=== PATIENT | female | born 1990 ===

== ENCOUNTER → 2020-01-09 15:17 | Outpatient (BNVA) | payer MEDICAID, SELFPAY | PROVIDERS: Visit Provider Obstetrics & Gynecology | DX: R10.2 Pelvic and perineal pain (principal) | CPT/HCPCS: 99213 ==

== ENCOUNTER 2020-01-16 14:35 | Outpatient (REF) | payer MEDICAID, SELFPAY ==
--- NOTE | 2020-01-16 14:48 | US_ITS ---
EXAMINATION: US PELVIS COMPLETE CLINICAL INFORMATION: Pelvic and perineal pain. Irregular on Depo shots COMPARISON: Ultrasound pelvis 09/16/2019 TECHNIQUE: Transabdominal and transvaginal ultrasound the pelvis is performed. FINDINGS: The uterus is anteverted and measures 7.4 cm in length, 4.2 cm in AP and 5.2 cm in transverse dimension. There is a hypoechoic lesion in the posterior body of uterus measuring 2.1 x 1.9 x 1.8 cm suggestive of fibroid. Previously it measured 1.2 x 1.3 x 1.4 cm. Previously visualized subcentimeter fibroids are not seen at this time. No additional lesions seen. Right ovary measures 2.7 x 1.5 x 1.9 cm and volume 4.0 mL. The right ovary appears unremarkable. Previously right ovary measured 4.3 x 4.2 x 4.7 cm. Left ovary measures 2.2 x 1.8 x 1.8 cm and volume 3.7 mL. The left ovary appears unremarkable. Previously left ovary measured 2.8 x 1.3 x 1.8 cm. There is no free fluid in cul-de-sac. US/US transvaginal IMPRESSION: Solitary uterine fibroid has increased slightly in size as described above. Smaller fibroids are not seen at this time. The ovaries are unremarkable.
--- NOTE | 2020-01-16 14:48 | US_ITS ---
EXAMINATION: US PELVIS COMPLETE CLINICAL INFORMATION: Pelvic and perineal pain. Irregular on Depo shots COMPARISON: Ultrasound pelvis 09/16/2019 TECHNIQUE: Transabdominal and transvaginal ultrasound the pelvis is performed. FINDINGS: The uterus is anteverted and measures 7.4 cm in length, 4.2 cm in AP and 5.2 cm in transverse dimension. There is a hypoechoic lesion in the posterior body of uterus measuring 2.1 x 1.9 x 1.8 cm suggestive of fibroid. Previously it measured 1.2 x 1.3 x 1.4 cm. Previously visualized subcentimeter fibroids are not seen at this time. No additional lesions seen. Right ovary measures 2.7 x 1.5 x 1.9 cm and volume 4.0 mL. The right ovary appears unremarkable. Previously right ovary measured 4.3 x 4.2 x 4.7 cm. Left ovary measures 2.2 x 1.8 x 1.8 cm and volume 3.7 mL. The left ovary appears unremarkable. Previously left ovary measured 2.8 x 1.3 x 1.8 cm. There is no free fluid in cul-de-sac. US/US pelvic complete IMPRESSION: Solitary uterine fibroid has increased slightly in size as described above. Smaller fibroids are not seen at this time. The ovaries are unremarkable.
== END 2020-01-16 14:36 | disposition home or self-care (01) ==
LOC: HO.US 14:35
PROVIDERS: Visit Provider Obstetrics & Gynecology
DX: R10.2 Pelvic and perineal pain (principal)
CPT/HCPCS: 76830; 76856

== ENCOUNTER → 2020-02-02 14:58 | Outpatient (BNVA) | payer MEDICAID, SELFPAY | PROVIDERS: Visit Provider Obstetrics & Gynecology | DX: Z76.89 Persons encountering health services in other specified circumstances (principal) ==

== ENCOUNTER → 2020-03-14 08:57 | Outpatient (BNVA) | payer MEDICAID, SELFPAY | PROVIDERS: Visit Provider Advanced Practice Midwife | DX: Z30.42 Encounter for surveillance of injectable contraceptive (principal) | CPT/HCPCS: 96372; 99212; J1050 ==

== ENCOUNTER 2020-03-29 09:47 | Outpatient (REF) | payer MEDICAID, SELFPAY ==
[2020-03-30 04:36] LABS: Syphilis Screen Nonreactive (Nonreactive)
[2020-03-30 04:42] LABS: ~HepC Num1 0.17 S/CO (0.00-0.79); ~Hepatitis C Antibody Nonreactive (Nonreactive)
[2020-03-30 04:54] LABS: HBsAGNum1 0.14 S/CO (0.00-0.99); HIV AB/AG Nonreactive (Nonreactive); HIV Num 1 0.07 S/CO (0.00-0.99); Hepatitis B Surface Antigen Negative (Negative)
[2020-04-04 16:18] LABS: HSV 1 IgM IFA Negative (Negative); HSV 2 IgM IFA Negative (Negative)
== END 2020-03-29 09:48 | disposition home or self-care (01) ==
LOC: HO.LAB 09:47
PROVIDERS: Visit Provider Advanced Practice Midwife
DX: N90.89 Other specified noninflammatory disorders of vulva and perineum (principal); Z20.2 Contact with and (suspected) exposure to infections with a predominantly sexual mode of transmission
CPT/HCPCS: 36415; 86695; 86696; 86780; 86803; 87340; 87389; 99212

== ENCOUNTER 2020-05-09 09:11 | Outpatient (REF) | payer MEDICAID, SELFPAY ==
--- NOTE | ~2020-05-09 | US_ITS ---
EXAMINATION: US ABDOMEN COMPLETE CLINICAL INFORMATION: Left lower quadrant pain. COMPARISON: Previous CT of the abdomen and pelvis July 2017 and abdominal ultrasound May 2009 TECHNIQUE: Real-time imaging of the abdominal viscera. FINDINGS: PANCREAS: Normal. ABDOMINAL AORTA: The proximal, mid, and distal segments are normal in caliber. INFERIOR VENA CAVA: Visualized portions are normal. LIVER: Normal. The liver is normal in size. The liver contour is normal. Parenchymal echogenicity is normal. No focal hepatic lesion. There is no intrahepatic biliary duct dilatation seen. GALLBLADDER: Normal. The gallbladder is physiologically distended without evidence of stones, sludge, polyps, wall thickening or pericholecystic fluid. COMMON BILE DUCT: Normal in caliber measuring 0.2 cm in diameter. RIGHT KIDNEY: Normal. No hydronephrosis. No renal calculi or focal parenchymal lesions. The kidney measures 9 cm in maximum dimension. LEFT KIDNEY: Normal. No hydronephrosis. No renal calculi or focal parenchymal lesions. The kidney measures 9 cm in maximum dimension. SPLEEN: Normal. The spleen measures 8 cm in maximum dimension. FREE FLUID: None. US/US abdomen complete IMPRESSION: Normal abdominal ultrasound.
== END 2020-05-09 09:12 | disposition home or self-care (01) ==
LOC: HO.US 09:11
PROVIDERS: Visit Provider Nurse Practitioner Primary Care
DX: R10.32 Left lower quadrant pain (principal)
CPT/HCPCS: 76700

== ENCOUNTER → 2020-06-11 09:35 | Outpatient (BNVA) | payer MEDICAID, SELFPAY | PROVIDERS: Visit Provider Obstetrics & Gynecology | DX: Z30.42 Encounter for surveillance of injectable contraceptive (principal) | CPT/HCPCS: 96372; 99211; J1050 ==

== ENCOUNTER 2020-06-28 17:52 | Emergency (ER) | payer MEDICAID, SELFPAY ==
--- NOTE | ~2020-06-28 | XR_ITS ---
EXAMINATION: CHEST 2 VIEWS CLINICAL INFORMATION: chest wall pain with inspiration . COMPARISON: No recent priors available TECHNIQUE: PA and lateral views of the chest obtained. FINDINGS: The lungs are well expanded. No focal infiltrate, effusion, edema, or pneumothorax. Cardiac and mediastinal silhouettes are within normal limits for technique. No acute bony abnormality seen XR/XR chest 2V IMPRESSION: No evidence of acute disease
[2020-06-28 19:13] VITALS: BP 118/64; PULSE 81; RESP 18; TEMP 37.2; O2SAT 99; BMI 22.3
[2020-06-28 20:18] LABS: MANUAL DIFF FLAG NO
[2020-06-28 20:20] LABS: Basophils Percent Auto 0.4 % (0-2); Eosinophils Absolute Auto 0.5 X10*3/uL (0.0-0.4); Eosinophils Percent Auto 5.9 % (0-4); Hematocrit 39.8 % (37-47); Hemoglobin 13.3 g/dl (12.0-16.0); Imm Gran Abs Auto 0.01 X10*3/uL (0.00-0.03); Imm Gran Pct Auto 0.1 % (0.0-0.4); Lymphocytes Absolute Auto 2.1 X10*3/uL (1.2-4.9); Lymphocytes Percent Auto 28.2 % (20-40); Mean Corpuscular HGB Conc 33.4 g/dl (31.0-35.0); Mean Corpuscular Hemoglobin 31.1 pg (27.0-33.0); Mean Platelet Volume 10.5 fL (9.4-12.3); Monocytes Absolute Auto 0.4 X10*3/uL (0.1-1.2); Monocytes Percent Auto 4.9 % (2-11); Neutrophils Absolute Auto 4.6 X10*3/uL (2.0-8.3); Neutrophils Percent Auto 60.5 % (45-73); Platelet Count 243 X10*3/uL (160-400); Red Blood Count 4.28 X10*6/uL (4.20-5.50); Red Cell Distribution Width 12.2 % (11.0-16.0); White Blood Count 7.6 X10*3/uL (4.8-10.8)
[2020-06-28 20:30] LABS: Glucose Urine UA NEG (NEG); Leukocyte Esterase Urine NEG (NEG); Nitrite Urine NEG (NEG); PH 5.5 (5.0-8.0); Specific Gravity - Urine >= 1.030 (1.005-1.025); Urine Blood TRACE (NEG); Urine Ketones NEG (NEG); Urine Protein NEG (NEG-TRACE)
[2020-06-28 20:31] LABS: Appearance Urine CLEAR; Color Urine YELLOW
[2020-06-28 20:32] LABS: UPreg QC Valid YES; Urine Pregnancy NEGATIVE (NEGATIVE)
[2020-06-28 20:35] LABS: Bacteria Urine 1+ /LPF; RBC Urine 0 /HPF (0); Squamous Epithelial Cell Urine 1+ /LPF; WBC Urine 0 /HPF (0-4)
[2020-06-28 20:49] LABS: Troponin-I High Sensitivity < 3.5 ng/L (<3.5-17.0)
--- NOTE | 2020-06-28 21:36 | ED.GENADULT ---
HPI - General Adult General Chief complaint: Dyspnea Stated complaint: headache,arm pain, j&j shot Time Seen by Provider: 06/28/20 21:36 Source: patient Mode of arrival: ambulatory Limitations: no limitations History of Present Illness HPI narrative: Patient received Arpan Arpan Aga on left arm on 06/11 now complaining of left arm pain and left chest pain for last 24 hours also complaining of body aches for last few days Related Data Home Medications Medication Instructions Recorded Confirmed medroxyprogesterone 150 mg/mL 150 mg IM [id number] 01/09/20 intramuscular suspension Previous Rx's Medication Instructions Recorded ibuprofen 600 mg PO Q6H PRN #20 tab 06/28/20 Allergies Allergy/AdvReac Type Severity Reaction Status Date / Time No Known Allergies Allergy Verified 03/29/20 09:56 [No Known Allergies*] Review of Systems Review of Systems: Constitutional : No Weight loss, No Fever, No Chills ENT/Mouth : No sore throat, No Rhinorrhea Eyes: No Eye Pain, No Swelling Cardiovascular : + Chest Pain, no palpitations Respiratory : No Cough, No Sputum, no shortness of breath Gastrointestinal : no Nausea, No Vomiting, No Diarrhea, No abdominal Pain, no black stools Genitourinary : No Dysuria, No Urinary Frequency Musculoskeletal : No joint pain, + Myalgias, No Joint Swelling Skin : No Skin Lesions, No rash Neuro : No Weakness, No Numbness, No Dizziness, No Headache Psych : No Anxiety/Panic, No Depression Heme/Lymph: No Bruising, No Lymphadenopathy Endocrine : No Polyuria, No Polydipsia All other systems reviewed and are negative [facility] Past Medical History Medical History Ovarian cyst Patient denies medical problems Family History Family History Father Thyroid disease Mother Thyroid disease Social History Social History Alcohol intake: never Smoking Status: Never smoker Advance Directives: No Advance Directives Information Provided: No Gender identity: female Physical Exam Vital Signs: Vital Signs: Last Vital Signs Temp 98.9 F 06/28/20 19:13 Pulse 74 06/28/20 21:53 Resp 18 06/28/20 21:53 BP 113/58 L 06/28/20 21:53 Pulse Ox 99 06/28/20 21:53 Body Mass Index 22.3 Appearance: Alert. Oriented X3. No acute distress. Eyes: Pupils equal, round and reactive to light. ENT: Pharynx normal. Neck: Normal inspection. Neck supple. CVS: Normal heart rate and rhythm. Pulses normal. Left 2nd inter costal tenderness+ Respiratory: No respiratory distress. Breath sounds normal. Abdomen: Soft and nontender. Bowel sounds are present, no mass palpable, no CVA tenderness Skin: Skin warm and dry. Normal skin color. Normal skin turgor. Extremities: No lower extremity edema. Neuro: Oriented X 3. No motor deficit. No sensory deficit. Medical Decision Making MDM Narrative Medical decision making narrative: Patient left 2nd intercostal tenderness fertile negative for anything acute likely costochondritis will discharge her home Lab Data Result diagrams: 06/28/20 20:08 06/28/20 20:08 Labs: Lab Results 06/28/20 06/28/20 06/28/20 Range/Units 20:08 20:08 20:23 WBC 7.6 (4.8-10.8) X10*3/uL RBC 4.28 (4.20-5.50) X10*6/uL Hgb 13.3 (12.0-16.0) g/dl Hct 39.8 (37-47) % MCV 93.0 (80-98) fL MCH 31.1 (27.0-33.0) pg MCHC 33.4 (31.0-35.0) g/dl RDW 12.2 (11.0-16.0) % Plt Count 243 (160-400) X10*3/uL MPV 10.5 (9.4-12.3) fL Immature Gran % (Auto) 0.1 (0.0-0.4) % Neut % (Auto) 60.5 (45-73) % Lymph % (Auto) 28.2 (20-40) % Andrew % (Auto) 4.9 (2-11) % Eos % (Auto) 5.9 H (0-4) % Baso % (Auto) 0.4 (0-2) % Lymph # (Auto) 2.1 (1.2-4.9) X10*3/uL Andrew # (Auto) 0.4 (0.1-1.2) X10*3/uL Eos # (Auto) 0.5 H (0.0-0.4) X10*3/uL Baso # (Auto) 0.0 (0.0-0.2) X10*3/uL Abs Immat Gran (auto) 0.01 (0.00-0.03) X10*3/uL Absolute Neuts (auto) 4.6 (2.0-8.3) X10*3/uL Absolute Nucleated RBC 0.000 (0.0-0.012) X10*3/uL Nucleated RBC % (auto) 0.0 (0.0-0.2) /100WBC Troponin I High Sens < 3.5 (<3.5-17.0) ng/L Urine Color YELLOW Urine Appearance CLEAR Urine pH 5.5 (5.0-8.0) Ur Specific Tatamy >= 1.030 H (1.005-1.025) Urine Protein NEG (NEG-TRACE) MG/DL Urine Glucose (UA) NEG (NEG) MG/DL Urine Ketones NEG (NEG) MG/DL Urine Blood TRACE (NEG) Urine Nitrite NEG (NEG) Ur Leukocyte Esterase NEG (NEG) Urine RBC 0 (0) /HPF Urine WBC 0 (0-4) /HPF Ur Squamous Epith Cells 1+ /LPF Urine Bacteria 1+ /LPF Urine Test (NEGATIVE) 06/28/20 Range/Units 20:23 WBC (4.8-10.8) X10*3/uL RBC (4.20-5.50) X10*6/uL Hgb (12.0-16.0) g/dl Hct (37-47) % MCV (80-98) fL MCH (27.0-33.0) pg MCHC (31.0-35.0) g/dl RDW (11.0-16.0) % Plt Count (160-400) X10*3/uL MPV (9.4-12.3) fL Immature Gran % (Auto) (0.0-0.4) % Neut % (Auto) (45-73) % Lymph % (Auto) (20-40) % Andrew % (Auto) (2-11) % Eos % (Auto) (0-4) % Baso % (Auto) (0-2) % Lymph # (Auto) (1.2-4.9) X10*3/uL Andrew # (Auto) (0.1-1.2) X10*3/uL Eos # (Auto) (0.0-0.4) X10*3/uL Baso # (Auto) (0.0-0.2) X10*3/uL Abs Immat Gran (auto) (0.00-0.03) X10*3/uL Absolute Neuts (auto) (2.0-8.3) X10*3/uL Absolute Nucleated RBC (0.0-0.012) X10*3/uL Nucleated RBC % (auto) (0.0-0.2) /100WBC Troponin I High Sens (<3.5-17.0) ng/L Urine Color Urine Appearance Urine pH (5.0-8.0) Ur Specific Tatamy (1.005-1.025) Urine Protein (NEG-TRACE) MG/DL Urine Glucose (UA) (NEG) MG/DL Urine Ketones (NEG) MG/DL Urine Blood (NEG) Urine Nitrite (NEG) Ur Leukocyte Esterase (NEG) Urine RBC (0) /HPF Urine WBC (0-4) /HPF Ur Squamous Epith Cells /LPF Urine Bacteria /LPF Urine Test NEGATIVE (NEGATIVE) ECG Data Attestation: I personally reviewed and interpreted this ECG as follows: Interpretation: Normal sinus rhythm heart rate 67 beats per minute normal axis normal intervals no acute ischemia impression normal EKG Discharge Plan Discharge Clinical Impression: Acute costochondritis Patient Disposition: Home, Self-Care Instructions: Costochondritis (ED) Additional Instructions: Apply ice, take pain medication as prescribed Prescriptions: New ibuprofen 600 mg tablet 600 mg PO Q6H PRN (Reason: pain) Qty: 20 RF: 0 No Action medroxyprogesterone [Depo-Provera] 150 mg/mL suspension 150 mg IM [id number] RF: 0
--- NOTE | 2020-06-28 21:42 | ECG_ITS ---
Test Reason : CP Blood Pressure : / mmHG Vent. Rate : 067 BPM Atrial Rate : 067 BPM P-R Int : 158 ms QRS Dur : 078 ms QT Int : 372 ms P-R-T Axes : 060 070 051 degrees QTc Int : 393 ms Normal sinus rhythm Normal ECG No previous ECGs available Referred By: Brandin León Electronically Signed By:Michael Blanchard
[2020-06-28 21:53] VITALS: BP 113/58; PULSE 74; RESP 18; O2SAT 99
[2020-06-28] MEDS: Ibuprofen 600 MG TABLET PO (21:58)
[2020-06-28 22:03] LABS: Alanine Aminotransferase 9 U/L (0-31); Albumin Level 4.3 g/dL (3.5-5.0); Alkaline Phosphatase 65 U/L (39-117); Anion Gap 11 (12-20); Aspartate Amino Transferase 15 U/L (5-31); Bilirubin Total 0.3 mg/dL (0.0-1.0); Blood Urea Nitrogen 8 mg/dL (9-16); Calcium 8.9 mg/dL (8.4-10.2); Carbon Dioxide 23 mmol/L (22-29); Chloride 109 mmol/L (96-108); Creatinine Clr Calc Pharmacy 72.8; Estimated Glomerular Filt Rate > 60; Glucose Random 65 mg/dL (60-115); Potassium 3.7 mmol/L (3.3-5.1); Sodium 139 mmol/L (135-145); Total Protein 7.2 g/dL (6.5-8.0)
== END 2020-06-28 22:02 | disposition home or self-care (01) ==
PROVIDERS: Emergency Provider Internal Medicine
DX: M94.0 Chondrocostal junction syndrome [Tietze] (principal)
CPT/HCPCS: 36415; 71046; 80053; 81001; 81025; 84484; 85025; 93005; 99283; 99284

== ENCOUNTER → 2020-09-03 10:33 | Outpatient (BNVA) | payer MEDICAID, SELFPAY | PROVIDERS: Visit Provider Advanced Practice Midwife | DX: Z30.42 Encounter for surveillance of injectable contraceptive (principal) | CPT/HCPCS: 96372; 99211 ==

== ENCOUNTER 2020-09-26 11:00 | Outpatient (RCR) | payer MEDICAID, SELFPAY | END 2020-09-29 08:00 | disposition home or self-care (01) | LOC: HO.PT 11:00 | PROVIDERS: PCP Internal Medicine; Visit Provider Family Medicine | DX: R10.2 Pelvic and perineal pain (principal) | CPT/HCPCS: 97110; 97112; 97140; 97161 ==

== ENCOUNTER 2020-10-18 10:24 | Outpatient (REF) | payer MEDICAID, SELFPAY ==
[2020-10-19 09:53] LABS: CT PCR NOT DETECTED (Not Detect.); NG PCR NOT DETECTED (Not Detect.)
[2020-10-19 10:07] LABS: BV Int Neg Control Negative (Negative); BV Int Pos Control Positive (Positive)
[2020-10-21 04:21] LABS: HPV mRNA E6/E7 rflx Not Detected (Not Detected)
== END 2020-10-18 10:25 | disposition home or self-care (01) ==
LOC: HO.LAB 10:24
PROVIDERS: Advanced Practice Midwife; Visit Provider Advanced Practice Midwife
DX: Z01.419 Encounter for gynecological examination (general) (routine) without abnormal findings (principal); R10.2 Pelvic and perineal pain; Z20.2 Contact with and (suspected) exposure to infections with a predominantly sexual mode of transmission
CPT/HCPCS: 87480; 87491; 87510; 87591; 87624; 87660; 88142

== ENCOUNTER → 2020-11-20 10:39 | Outpatient (BNVA) | payer MEDICAID, SELFPAY | PROVIDERS: Visit Provider Advanced Practice Midwife | DX: Z30.42 Encounter for surveillance of injectable contraceptive (principal) | CPT/HCPCS: 96372; 99211 ==

== ENCOUNTER 2021-01-02 14:56 | Emergency (ER) | payer MEDICAID, SELFPAY ==
[2021-01-02 16:00] VITALS: PULSE 70; RESP 18; TEMP 36.9; O2SAT 100; BMI 23.4
[2021-01-02 16:03] LABS: COVID-19 Test Negative (Negative); IDNOW Serial# 9DD0AD1C
--- NOTE | 2021-01-02 17:00 | ED.URI ---
HPI - URI/Sore Throat General Chief Complaint: Upper Respiratory Symptoms Stated Complaint: flu like symptoms Time Seen by Provider: 01/02/21 17:00 Source: patient Mode of arrival: ambulatory History of Present Illness HPI Narrative: 30-year-old female with past medical history of ovarian cyst presenting to the ED complaining of sore throat, nasal congestion, headache, sneezing x a few days. Also reports right-sided ear pain. Denies drainage from ears/hearing loss, difficulty swallowing Presenting with family member with similar symptoms. Denies cough, chest pain, shortness of breath, recent travel, COVID-19 exposure, rash MD elicited complaint: sore throat, rhinorrhea and nasal congestion Related Data Home Medications Medication Instructions Recorded Confirmed medroxyprogesterone 150 mg/mL 150 mg IM [id number] 01/09/20 intramuscular suspension (Depo-Provera) Previous Rx's Medication Instructions Recorded ibuprofen 600 mg tablet 600 mg PO Q6H PRN #20 tab 06/28/20 vitamin with calcium 1 tab PO DAILY #90 tab 10/18/20 no.72-iron 27 mg-folic acid 1 mg tablet ( Vitamins Plus Low Iron) medroxyprogesterone 150 mg/mL 150 mg IM [id number] 90 Days #1 ml 11/20/20 intramuscular suspension (Depo-Provera) Allergies Allergy/AdvReac Type Severity Reaction Status Date / Time No Known Allergies Allergy Verified 01/02/21 16:00 [No Known Allergies*] Review of Systems Review of Systems: Constitutional: No Fever, No Chills ENT/Mouth: No Ear Pain, + Nasal Congestion, No Sinus Pain, No Hoarseness, + sore throat, + Rhinorrhea, No Swallowing Difficulty Cardiovascular: No Chest Pain, No SOB Respiratory: No Cough, No Wheezing Gastrointestinal: No Nausea, No Vomiting, No Diarrhea, No Constipation, No Abdominal pain Genitourinary: No Dysuria, No Hematuria Musculoskeletal: No joint pain, No Myalgias, No Joint Swelling Skin: No Skin Lesions, No rash Yes all other systems are reviewed and are negative [facility] Past Medical History Attestation statement: The following information was validated with the patient. Medical History Ovarian cyst Patient denies medical problems Family History Family History Father Thyroid disease Mother Thyroid disease Social History Social History Alcohol intake: never Advance Directives: No Advance Directives Information Provided: No Patient : No Gender identity: Female Physical Exam Vital Signs: Vital Signs: Last Vital Signs Temp 98.4 F 01/02/21 16:00 Pulse 70 01/02/21 16:00 Resp 18 01/02/21 16:00 Pulse Ox 100 01/02/21 16:00 Body Mass Index 23.4 Const: General: cooperative, healthy appearing, comfortable, no acute distress, well developed, alert and awake Orientation/consciousness: patient oriented x3 Limitations: no limitations HENMT: Other: mild posterior oropharyngeal erythema, no swelling/exudates, uvula midline Head: Yes normal to inspection and Yes atraumatic Ears: hearing grossly normal bilaterally, external ears normal, TM's normal bilaterally, TM normal on the right and TM normal on the left General nose exam: Normal external nose present Face and sinus: Yes normal facial exam Mouth: Normal oral and palatal mucosa present, oropharynx normal and moist mucous membranes Throat: Yes uvula midline and No peritonsillar mass Eyes: General: appearance normal, both eyes and all related structures EOM: EOMs intact bilaterally Neck: Neck: Yes normal visual inspection, Yes no lymphadenopathy and Yes no meningeal signs Resp: Effort & Inspection: normal respiratory effort Auscultation: clear to auscultation bilaterally, no crackles, no rales and no wheezes Cardio: Rate: regular rate Heart sounds: S1 normal heart sound present and S2 normal heart sound present GI: Inspection: Yes normal to inspection Skin: Rashes: no rashes Wounds: no wounds Neuro: General: patient oriented x3 and no meningeal signs Gait exam (Neuro): Normal gait present Extrem: General: Yes normal to inspection Course Course Course Narrative: -COVID19 negative -rapid strep negative MDM - URI/Sore Throat MDM Narrative Medical decision making narrative: 30-year-old female with past medical history of ovarian cyst presenting to the ED complaining of sore throat, nasal congestion, headache, sneezing x a few days. On exam vital signs stable, NAD, nontoxic appearing, mild posterior oropharyngeal erythema, TMs WNL, lungs CTA. Concern for viral syndrome/COVID-19. Exam not consistent with strep pharyngitis, low concern for pneumonia. Pain: COVID-19 testing, rapid strep Medical Records Attestation: I reviewed the patient's medical records. Lab Data Attestation: I reviewed the patient's lab results. Labs: Lab Results 01/02/21 01/02/21 Range/Units 15:31 16:59 COVID-19 (FRANCISCO) Negative (Negative) COVID-19 Clin Com See Note S. pyogenes GrpA LUANN Negative (Negative) Discharge Plan Discharge Clinical Impression: Upper respiratory infection Qualifiers: URI type: unspecified viral URI Qualified Code(s): J06.9 - Acute upper respiratory infection, unspecified Patient Disposition: Home, Self-Care Instructions: Viral Syndrome (ED) Additional Instructions: You tested negative for COVID 19 and rapid strep stay hydrated rest Please follow-up with her doctor. If her symptoms persist or worsen, you fever unresolved with medications, developed chest pain, shortness of for chest pain please return to the ED Follow-up doctors. If her symptoms persist or worsen, you develop shortness breath, fever, or chest pain please return to the ED - Stay away from others - WEAR A MASK if you are sick AND STAY HOME - Cover your mouth and nose with a tissue when you cough or sneeze. Dispose of tissues in a lined trash can and wash your hands immediately with soap and water for at least 20 seconds. If soap and water are not available, clean hands with alcohol-based hand commissioned defence [employer] officer that contains at least 60% alcohol. - Clean your hands often with soap and water for at least 20 seconds - Avoid touching your eyes, nose and mouth with unwashed hands - Do not share dishes, drinking glasses, cups, eating utensils, towels, or bedding with other people in your home. After using these items, wash them thoroughly with soap and water or put in the laborer powerhouse. - Clean high-touch surfaces in your isolation area ( sick room and bathroom) every day; let a caregiver clean and disinfect high-touch surfaces in other areas of the home. Clean the area or item with soap and water or another detergent if it is dirty. Then, use a household disinfectant. - Limit contact with pets and animals: If you must care for a pet, wash your hands before and after interacting with them) Prescriptions: No Action ibuprofen 600 mg tablet 600 mg PO Q6H PRN (Reason: pain) Qty: 20 RF: 0 medroxyprogesterone [Depo-Provera] 150 mg/mL suspension 150 mg IM [id number] RF: 0 Vitamin Plus Low Iron 27 mg iron- 1 mg tablet 1 tab PO DAILY Qty: 90 RF: 1 medroxyprogesterone [Depo-Provera] 150 mg/mL suspension 150 mg IM [id number] 90 Days Qty: 1 RF: 1 Referrals: ED Physician,Generic [Emergency Provider] - 2 days Stand Alone Forms: Work/School Release
[2021-01-02 17:18] LABS: Strep A Nucleic Acid Negative (Negative)
== END 2021-01-02 17:31 | disposition home or self-care (01) ==
PROVIDERS: Emergency Provider Emergency Medicine
DX: J06.9 Acute upper respiratory infection, unspecified (principal); Z20.822 Contact with and (suspected) exposure to COVID-19
CPT/HCPCS: 36415; 87635; 87651; 99282; 99283

== ENCOUNTER 2021-01-21 11:09 | Outpatient (REF) | payer MEDICAID, SELFPAY ==
[2021-01-22 02:51] LABS: CT PCR NOT DETECTED (Not Detect.); NG PCR NOT DETECTED (Not Detect.)
[2021-01-22 12:07] LABS: BV Int Neg Control Negative (Negative); BV Int Pos Control Positive (Positive)
== END 2021-01-21 11:10 | disposition home or self-care (01) ==
LOC: HO.LAB 11:09
PROVIDERS: Visit Provider Advanced Practice Midwife
DX: N89.8 Other specified noninflammatory disorders of vagina (principal); N92.1 Excessive and frequent menstruation with irregular cycle; Z30.42 Encounter for surveillance of injectable contraceptive
CPT/HCPCS: 81025; 87480; 87491; 87510; 87591; 87660; 99212

== ENCOUNTER → 2021-02-11 10:33 | Outpatient (BNVA) | payer MEDICAID, SELFPAY | PROVIDERS: Visit Provider Advanced Practice Midwife | DX: Z30.42 Encounter for surveillance of injectable contraceptive (principal) | CPT/HCPCS: 96372 ==

== ENCOUNTER 2021-03-25 08:32 | Outpatient (REF) | payer MEDICAID, SELFPAY ==
[2021-03-25 11:59] LABS: Binax Internal Control QC Valid; Binax Now Covid-19 Ag Positive (Negative)
== END 2021-03-25 08:33 | disposition home or self-care (01) ==
LOC: HO.LAB 08:32
PROVIDERS: Visit Provider Internal Medicine
DX: Z20.822 Contact with and (suspected) exposure to COVID-19 (principal)
CPT/HCPCS: 36415; C9803

== ENCOUNTER 2021-04-30 10:36 | Outpatient (REF) | payer MEDICAID, SELFPAY ==
--- NOTE | ~2021-04-30 | XR_ITS ---
EXAMINATION: XR CHEST CLINICAL INFORMATION: Chest pain on breathing. History of Covid COMPARISON: 06/28/2020 TECHNIQUE: 2 views of the chest were obtained. FINDINGS: No significant abnormality is noted involving the heart, lungs, mediastinum, bony thorax or soft tissues. XR/XR chest 2V IMPRESSION: Unremarkable examination.
[2021-05-02 14:26] LABS: TS Negative Control Passed; TS Panel A 0; TS Panel B 0; TS Positive Control Passed; TSpotTB Negative (Negative)
== END 2021-04-30 10:37 | disposition home or self-care (01) ==
LOC: HO.XRAY 10:36
PROVIDERS: Absent Provider Registered Nurse Community Health; PCP Registered Nurse Community Health; Visit Provider Nurse Practitioner Family
DX: R07.1 Chest pain on breathing (principal); Z86.16 Personal history of COVID-19
CPT/HCPCS: 36415; 71046; 86481

== ENCOUNTER 2021-05-03 13:40 | Outpatient (REF) | payer MEDICAID, SELFPAY ==
[2021-05-03 16:06] LABS: CT PCR NOT DETECTED (Not Detect.); NG PCR NOT DETECTED (Not Detect.)
== END 2021-05-03 13:41 | disposition home or self-care (01) ==
LOC: HO.LAB 13:40
PROVIDERS: Visit Provider Nurse Practitioner Family
DX: R07.1 Chest pain on breathing (principal); Z86.19 Personal history of other infectious and parasitic diseases; Z11.3 Encounter for screening for infections with a predominantly sexual mode of transmission
CPT/HCPCS: 87491; 87591

== ENCOUNTER → 2021-06-14 11:30 | Outpatient (BNVA) | payer MEDICAID, SELFPAY | PROVIDERS: Visit Provider Advanced Practice Midwife | DX: Z30.42 Encounter for surveillance of injectable contraceptive (principal) | CPT/HCPCS: Q3014 ==

== ENCOUNTER → 2021-06-20 10:32 | Outpatient (BNVA) | payer MEDICAID, SELFPAY | PROVIDERS: Visit Provider Advanced Practice Midwife | DX: Z32.02 Encounter for pregnancy test, result negative (principal) | CPT/HCPCS: 99211 ==

== ENCOUNTER → 2021-07-02 09:34 | Outpatient (BNVA) | payer MEDICAID, SELFPAY | PROVIDERS: PCP Registered Nurse Community Health; Visit Provider Advanced Practice Midwife | DX: Z30.42 Encounter for surveillance of injectable contraceptive (principal) | CPT/HCPCS: 96372; 99211 ==

== ENCOUNTER → 2021-09-24 10:43 | Outpatient (BNVA) | payer MEDICAID, SELFPAY | PROVIDERS: PCP Registered Nurse Community Health; Visit Provider Advanced Practice Midwife | DX: Z30.42 Encounter for surveillance of injectable contraceptive (principal) | CPT/HCPCS: 96372; 99211 ==

== ENCOUNTER 2021-10-09 04:06 | Emergency (ER) | payer MEDICAID, SELFPAY ==
--- NOTE | 2021-10-09 | ECG_ITS ---
Test Reason : CP Blood Pressure : / mmHG Vent. Rate : 081 BPM Atrial Rate : 081 BPM P-R Int : 152 ms QRS Dur : 062 ms QT Int : 344 ms P-R-T Axes : 067 061 040 degrees QTc Int : 399 ms Normal sinus rhythm with sinus arrhythmia Normal ECG When compared with ECG of 28-JUN-2020 21:51, No significant change was found Referred By: Generic ED Physician Electronically Signed By:TARIQ GIORDANO
--- NOTE | ~2021-10-09 | XR_ITS ---
EXAMINATION: XR CHEST CLINICAL INFORMATION: Cough. Chest wall pain. COMPARISON: 04/30/2021 TECHNIQUE: 2 views of the chest were obtained. FINDINGS: Normal symmetric lung volumes. No parenchymal consolidation. No pleural effusion. No pneumothorax. Cardiomediastinal silhouette and pulmonary vascularity are within normal limits. No acute osseous abnormalities. XR/XR chest 2V IMPRESSION: Unremarkable examination.
[2021-10-09 05:03] VITALS: BP 131/78; PULSE 80; TEMP 36.8; O2SAT 96; BMI 23.4
--- NOTE | 2021-10-09 08:27 | ED.GENADULT ---
HPI - General Adult General Chief complaint: General Medical Stated complaint: chest pain, coughing Time Seen by Provider: 10/09/21 08:06 Source: patient Mode of arrival: ambulatory History of Present Illness HPI narrative: 31-year-old female with significant past medical history presenting to the ED complaining of left eye pruritus, headache, and dry cough since last night. Admits eye became erythematous after itching. Also reports CP, worse with coughing and palpation. Reports chronic headaches are this is worse, denies being maximal in onset. Denies fever, SOB, pain, sore throat, recent travel, sick contacts, abdominal pain, nausea/vomiting, vision change/loss Onset (ago): hour(s) Related Data Previous Rx's Medication Instructions Recorded medroxyprogesterone 150 mg/mL 150 mg IM Q12W #1 mL 06/18/21 intramuscular syringe benzonatate 100 mg capsule 100 mg PO TID PRN cough #14 caps 10/09/21 [id number] 1 cap PO Q4-6H PRN headache #14 10/09/21 50 mg-300 mg-40 mg capsule caps (Fioricet) olopatadine 0.1 % eye drops 1 drp ophthalmic (eye) BID 7 days 10/09/21 #5 mL Allergies Allergy/AdvReac Type Severity Reaction Status Date / Time No Known Allergies Allergy Verified 10/09/21 05:03 [No Known Allergies*] Review of Systems Review of Systems: Constitutional: No Fever, No Chills, No Fatigue, No Malaise ENT/Mouth: No Ear Pain, No Nasal Congestion, No Hoarseness, No sore throat, No Rhinorrhea, No Swallowing Difficulty Eyes: No Eye Pain, No Swelling, + Redness, +itching, No Discharge, No Vision Changes Cardiovascular: + Chest Pain, No SOB, No Dyspnea on Exertion, No Edema, No Palpitations Respiratory: + Cough, No Sputum, No Wheezing, No Dyspnea Gastrointestinal: No Nausea, No Vomiting, No Diarrhea, No Constipation, No Abdominal pain Genitourinary: No Dysuria, No Urinary Frequency, No Hematuria, No Flank Pain, No Urinary Flow Changes, No Hesitancy Musculoskeletal: No joint pain, No Myalgias, No Joint Swelling Skin: No Skin Lesions, No rash Neuro: No Weakness, No Numbness, No Paresthesias, No Loss of Consciousness, No Dizziness, + Headache Yes all other systems are reviewed and are negative Constitutional: Constitutional: Reports as per [facility] Past Medical History Attestation statement: The following information was validated with the patient. Medical History Ovarian cyst Patient denies medical problems Family History Family History Father Thyroid disease Mother Thyroid disease Social History Social History Alcohol intake: never Patient Tobacco Use Status: Never used Tobacco Advance Directives: No Advance Directives Information Provided: No Gender identity: Female Physical Exam ED Vital Signs: Vital Signs - 24 hr 10/09/21 05:03 Temperature 98.3 F Pulse Rate 80 Blood Pressure 131/78 Pulse Oximetry 96 Oxygen Delivery Method Room Air BMI result Body Mass Index 23.4 Const General: cooperative, healthy appearing, no acute distress, alert and awake Orientation/consciousness: patient oriented x3 Limitations: no limitations HENMT Head: Yes normal to inspection and Yes atraumatic Ears: hearing grossly normal bilaterally General nose exam: Normal external nose present Face and sinus: Yes normal facial exam Eyes General: appearance normal, both eyes and all related structures Periorbital: periorbital findings normal Eyelids: Yes eyelids normal Conjunctivae: conjunctivae normal Sclerae: sclerae normal Corneas: corneas normal Pupils: Equal, round and reactive pupils present EOM: EOMs intact bilaterally Direct Ophthalmoscopy: normal light reflex and no photophobia Neck Neck: Yes normal visual inspection and Yes no meningeal signs Chest Chest palpation & inspection: no crepitus and tenderness sternum Resp Effort & Inspection: normal respiratory effort and no respiratory distress Auscultation: clear to auscultation bilaterally, no crackles, no rales, no rhonchi and no wheezes Cardio Rate: regular rate Heart sounds: S1 normal heart sound present and S2 normal heart sound present GI Inspection: Yes normal to inspection Palpation (GI): Soft to palpation, nontender, no guarding and not rigid General: Yes no CVA tenderness Back/Spine/Pelvis Back: no CVA tenderness Skin Rashes: no rashes Wounds: no wounds Neuro General: patient oriented x3, gait normal, tone normal, moves all extremities, no meningeal signs and no focal motor deficits Cranial nerves: Yes Equal, round and reactive pupils present Gait exam (Neuro): Normal gait present Extrem General: Yes normal to inspection and Yes no pedal edema Course Course Course Narrative: -1023--no leukocytosis. Labs otherwise unremarkable. Troponin negative. XR chest 2V IMPRESSION: Unremarkable examination. Medical Decision Making MDM Narrative Medical decision making narrative: 31-year-old female with significant past medical history presenting to the ED complaining of left eye pruritus, headache, and dry cough since last night. Admits eye became erythematous after itching. Also reports CP, worse with coughing and palpation. On exam vital signs stable, NAD, nontoxic, lungs CTA, CP reproducible on exam. bilateral eyes WNL, no erythema. Concern for viral illness vs allergies vs costochondritis. Lower concern for pneumonia, ACS, PE. Concern for SAH/meningitis Plan: EKG, labs, CXR, COVID-19 testing, symptomatic treatment, re-evaluate Medical Records Medical records reviewed: Yes I reviewed the patient's medical records. Lab Data Lab results reviewed: Yes I reviewed the patient's lab results. Result diagrams: 10/09/21 09:14 10/09/21 09:14 Labs: Lab Results 10/09/21 10/09/21 10/09/21 Range/Units 09:14 09:14 09:14 WBC 8.2 (4.8-10.8) X10*3/uL RBC 4.39 (4.20-5.50) X10*6/uL Hgb 13.5 (12.0-16.0) g/dl Hct 40.6 (37.0-47.0) % MCV 92.5 (80.0-98.0) fL MCH 30.8 (27.0-33.0) pg MCHC 33.3 (31.0-35.0) g/dl RDW 12.7 (11.0-16.0) % Plt Count 221 (160-400) X10*3/uL MPV 10.2 (9.4-12.3) fL Immature Gran % (Auto) 0.2 (0.0-0.4) % Neut % (Auto) 62.1 (45-73) % Lymph % (Auto) 24.8 (20-40) % [place] % (Auto) 4.4 (2-11) % Eos % (Auto) 8.0 H (0-4) % Baso % (Auto) 0.5 (0-2) % Lymph # (Auto) 2.0 (1.2-4.9) X10*3/uL [place] # (Auto) 0.4 (0.1-1.2) X10*3/uL Eos # (Auto) 0.7 H (0.0-0.4) X10*3/uL Baso # (Auto) 0.0 (0.0-0.2) X10*3/uL Abs Immat Gran (auto) 0.02 (0.00-0.03) X10*3/uL Absolute Neuts (auto) 5.1 (2.0-8.3) x10*3/uL Absolute Nucleated RBC 0.000 (0.0-0.012) X10*3/uL Nucleated RBC % (auto) 0.0 (0.0-0.2) /100WBC Sodium 138 (135-145) mmol/L Potassium 4.5 D (3.3-5.1) mmol/L Chloride 110 H (96-108) mmol/L Carbon Dioxide 22 (22-29) mmol/L Anion Gap 11 L (12-20) BUN 10 (9-16) mg/dL Creatinine 0.83 (0.5-1.4) mg/dL Estim Creat Clear Calc 74.0 Estimated GFR > 60 Random Glucose 86 (60-115) mg/dL Calcium 9.0 (8.4-10.2) mg/dL Troponin I High Sens < 3.5 (<3.5-17.0) ng/L Discharge Plan Discharge Clinical Impression: Acute viral syndrome, Allergic conjunctivitis Patient Disposition: Home, Self-Care Instructions: Viral Syndrome (ED) Additional Instructions: Your COVID test is currently pending at this time, I will call you with positive results only. Your blood work was otherwise reassuring. Her chest x-ray is unremarkable Fioricet is for headache, take as needed. In addition take Motrin. Be aware Fioricet has Tylenol mixed in, do not exceed 4 g in 1 day. Tessalon Perles for cough. Olopatadine drops will help with your itching Follow-up with her doctor. Return to the ED as needed if symptoms persist or worsen Prescriptions: New olopatadine 0.1 % drops 1 drp ophthalmic (eye) BID 7 Days Qty: 5 0RF Rx Instructions: separate doses by at least 6-8 hours benzonatate 100 mg capsule 100 mg PO TID PRN (Reason: cough) Qty: 14 0RF [id number] [Fioricet] 50-300-40 mg capsule 1 cap PO Q4-6H PRN (Reason: headache) Qty: 14 0RF No Action medroxyprogesterone 150 mg/mL syringe 150 mg IM Q12W Qty: 1 1RF Referrals: [place] [Primary Care Provider] -
[2021-10-09] MEDS: Loratadine 10 MG TABLET PO (09:09)
[2021-10-09] MEDS: Butalb/Acetamin/Caff 50/325/40 TABLET 1 TAB PO (09:09)
[2021-10-09 09:18] LABS: MANUAL DIFF FLAG NO
[2021-10-09 09:20] LABS: Basophils Percent Auto 0.5 % (0-2); Eosinophils Absolute Auto 0.7 X10*3/uL (0.0-0.4); Hematocrit 40.6 % (37.0-47.0); Hemoglobin 13.5 g/dl (12.0-16.0); Imm Gran Abs Auto 0.02 X10*3/uL (0.00-0.03); Imm Gran Pct Auto 0.2 % (0.0-0.4); Lymphocytes Percent Auto 24.8 % (20-40); Mean Corpuscular HGB Conc 33.3 g/dl (31.0-35.0); Mean Corpuscular Hemoglobin 30.8 pg (27.0-33.0); Mean Corpuscular Volume 92.5 fL (80.0-98.0); Mean Platelet Volume 10.2 fL (9.4-12.3); Monocytes Absolute Auto 0.4 X10*3/uL (0.1-1.2); Monocytes Percent Auto 4.4 % (2-11); Neutrophils Absolute Auto 5.1 x10*3/uL (2.0-8.3); Neutrophils Percent Auto 62.1 % (45-73); Platelet Count 221 X10*3/uL (160-400); Red Blood Count 4.39 X10*6/uL (4.20-5.50); Red Cell Distribution Width 12.7 % (11.0-16.0); White Blood Count 8.2 X10*3/uL (4.8-10.8)
[2021-10-09 09:43] LABS: Troponin-I High Sensitivity < 3.5 ng/L (<3.5-17.0)
[2021-10-09 09:44] LABS: Anion Gap 11 (12-20); Blood Urea Nitrogen 10 mg/dL (9-16); Carbon Dioxide 22 mmol/L (22-29); Chloride 110 mmol/L (96-108); Estimated Glomerular Filt Rate > 60; Glucose Random 86 mg/dL (60-115); Potassium 4.5 mmol/L (3.3-5.1); Sodium 138 mmol/L (135-145)
[2021-10-09 11:12] LABS: COVID-19 Test Negative (Negative); IDNOW Serial# 16C4AD1C
== END 2021-10-09 11:06 | disposition home or self-care (01) ==
PROVIDERS: Physician Assistant; Emergency Provider Emergency Medicine
DX: B34.9 Viral infection, unspecified (principal); H10.12 Acute atopic conjunctivitis, left eye; Z20.822 Contact with and (suspected) exposure to COVID-19
CPT/HCPCS: 36415; 71046; 80048; 84484; 85025; 87635; 93005; 99283

== ENCOUNTER 2021-10-21 12:31 | Outpatient (REF) | payer MEDICAID, SELFPAY ==
[2021-10-21 15:41] LABS: CT PCR NOT DETECTED (Not Detect.); NG PCR NOT DETECTED (Not Detect.)
[2021-10-22 09:04] LABS: BV Int Neg Control Negative (Negative); BV Int Pos Control Positive (Positive)
== END 2021-10-21 12:32 | disposition home or self-care (01) ==
LOC: HO.LAB 12:31
PROVIDERS: Visit Provider Advanced Practice Midwife
DX: Z01.419 Encounter for gynecological examination (general) (routine) without abnormal findings (principal); Z11.3 Encounter for screening for infections with a predominantly sexual mode of transmission
CPT/HCPCS: 87480; 87491; 87510; 87591; 87660

== ENCOUNTER 2021-12-11 11:11 | Outpatient (REF) | payer MEDICAID, SELFPAY ==
--- NOTE | ~2021-12-11 | US_ITS ---
EXAMINATION: US PELVIS CLINICAL INFORMATION: Pelvic and perineal pain. COMPARISON: None TECHNIQUE: Ultrasound of the pelvis is performed using both transabdominal and transvaginal transducers along with Doppler. Transvaginal imaging is performed due to inadequate visualization transabdominally. FINDINGS: Uterus: The uterus is anteverted and measures 8.1 x 4.2 x 5.2 cm. The double wall endometrial thickness is 4 mm. The uterus is smooth in contour and has somewhat heterogeneous echogenicity. There is an anterior uterine body fibroid measuring 1.7 x 1.6 x 2 cm. This is somewhat heterogeneous. This is similar to prior. Fundal fibroid measures 0.7 cm, decreased in prominence from prior. Adnexa: Both ovaries are visualized. There is normal color flow to the adnexa. There is no ovarian torsion. There is no pelvic ascites or fluid collection. Right ovary measures 2.8 x 1.5 x 1.5 cm. Left ovary measures 2.8 x 2.1 x 2.2 cm. US/US pelvic and transvaginal IMPRESSION: Uterine fibroids are similar to decreased in size from prior. No suspicious mass.
== END 2021-12-11 11:12 | disposition home or self-care (01) ==
LOC: HO.US 11:11
PROVIDERS: Visit Provider Advanced Practice Midwife
DX: R10.2 Pelvic and perineal pain (principal); D21.9 Benign neoplasm of connective and other soft tissue, unspecified
CPT/HCPCS: 76830; 76856

== ENCOUNTER 2022-01-30 08:29 | Outpatient (REF) | payer MEDICAID, SELFPAY ==
[2022-01-30 11:20] LABS: HCG Quantitative < 2 mIU/mL
== END 2022-01-30 08:30 | disposition home or self-care (01) ==
LOC: HO.LAB 08:29
PROVIDERS: PCP Nurse Practitioner; Visit Provider Advanced Practice Midwife
DX: N91.2 Amenorrhea, unspecified (principal); R10.2 Pelvic and perineal pain; Z30.09 Encounter for other general counseling and advice on contraception; Z79.899 Other long term (current) drug therapy
CPT/HCPCS: 36415; 84702; 99212

== ENCOUNTER 2022-04-04 12:14 | Outpatient (REF) | payer MEDICAID, SELFPAY ==
--- NOTE | ~2022-04-04 | US_ITS ---
EXAMINATION: US PELVIC AND TRANSVAGINAL CLINICAL INFORMATION: Amenorrhea. COMPARISON: Pelvic ultrasound 12/11/2021. TECHNIQUE: Ultrasound of the pelvis is performed using both transabdominal and transvaginal transducers along with Doppler. Transvaginal imaging is performed due to inadequate visualization transabdominally. FINDINGS: UTERUS: The uterus is anteverted and anteflexed measuring 8.9 x 3.8 x 5.1 cm for a volume of 90 mL. The double wall endometrial thickness is 0.8 mm. The uterus is smooth in contour and has normal myometrial echogenicity. Two fibroids are again seen, one anterior body fibroid measuring 1.6 x 1.7 x 1.8 cm (previously 1.7 x 1.6 x 2.0 cm) and a smaller fibroid at the fundus measuring 5 x 6 x 6 mm (previously 7 x 6 x 7 mm). Nabothian cysts are present in the cervix. ADNEXA: Both ovaries are visualized. There is normal color flow to the adnexa. There is no ovarian torsion. There is no pelvic ascites or fluid collection. Right ovary measures 3.1 x 1.5 x 2.1 cm for a volume of 5.1 mL. More follicular cysts are present. Left ovary measures 3.4 x 1.9 x 2.8 cm for a volume of 9.5 mL and contains cysts, the largest measuring 1.6 x 1.7 x 1.9 cm. Bilateral pelvic varices are seen. US/US pelvic and transvaginal IMPRESSION: 1. Two small uterine fibroids. 2. Bilateral ovarian cysts. 3. Bilateral pelvic varices.
== END 2022-04-04 12:15 | disposition home or self-care (01) ==
LOC: HO.US 12:14
PROVIDERS: Visit Provider Advanced Practice Midwife
DX: N91.2 Amenorrhea, unspecified (principal); R10.2 Pelvic and perineal pain
CPT/HCPCS: 76830; 76856

== ENCOUNTER → 2022-04-28 10:32 | Outpatient (BNVA) | payer MEDICAID, SELFPAY | PROVIDERS: PCP Pediatrics; Visit Provider Advanced Practice Midwife | DX: Z30.09 Encounter for other general counseling and advice on contraception (principal) | CPT/HCPCS: 99212 ==

== ENCOUNTER 2022-10-09 07:22 | Emergency (ER) | payer MEDICAID, SELFPAY ==
--- NOTE | ~2022-10-09 | US_ITS ---
EXAM: Pelvic Ultrasound CLINICAL INDICATION: Left-sided pelvic pain. Rule out cyst versus torsion COMPARISON: Pelvic ultrasound 04/04/2022 TECHNIQUE: The pelvis was evaluated using transabdominal and transvaginal imaging. The patient was not amenable to endovaginal interrogation. Color Doppler imaging and spectral analysis of the bilateral ovaries was also performed. FINDINGS: The uterus measures 8.6 x 3.8 x 5.3 cm in longitudinal by AP by transverse dimension. The endometrial stripe is not thickened and measures 0.9 cm. Previously visualized uterine fibroids not discretely visualized on today's imaging. The left ovary measures approximately 3.1 x 2.1 x 1.9 cm and is normal. The right ovary measures approximately 3.1 x 2.1 x 2.3 cm and contains a suspected 1.1 cm cyst versus dominant follicle. Spectral analysis reveals normal arterial and venous waveforms in the bilateral ovaries. There are no abnormal adnexal masses. There is a small amount of free fluid in the pelvis, nonspecific but often times physiologic. US/US pelvic ovarian doppler IMPRESSION: 1. Normal thickness endometrial stripe. 2. Normal arterial and venous waveforms of the bilateral ovaries. 3. Small amount of free pelvic fluid, nonspecific but often times physiologic.
--- NOTE | ~2022-10-09 | US_ITS ---
EXAM: Pelvic Ultrasound CLINICAL INDICATION: Left-sided pelvic pain. Rule out cyst versus torsion COMPARISON: Pelvic ultrasound 04/04/2022 TECHNIQUE: The pelvis was evaluated using transabdominal and transvaginal imaging. The patient was not amenable to endovaginal interrogation. Color Doppler imaging and spectral analysis of the bilateral ovaries was also performed. FINDINGS: The uterus measures 8.6 x 3.8 x 5.3 cm in longitudinal by AP by transverse dimension. The endometrial stripe is not thickened and measures 0.9 cm. Previously visualized uterine fibroids not discretely visualized on today's imaging. The left ovary measures approximately 3.1 x 2.1 x 1.9 cm and is normal. The right ovary measures approximately 3.1 x 2.1 x 2.3 cm and contains a suspected 1.1 cm cyst versus dominant follicle. Spectral analysis reveals normal arterial and venous waveforms in the bilateral ovaries. There are no abnormal adnexal masses. There is a small amount of free fluid in the pelvis, nonspecific but often times physiologic. US/US pelvic and transvaginal IMPRESSION: 1. Normal thickness endometrial stripe. 2. Normal arterial and venous waveforms of the bilateral ovaries. 3. Small amount of free pelvic fluid, nonspecific but often times physiologic.
[2022-10-09 07:34] VITALS: BP 141/71; PULSE 68; RESP 18; TEMP 37; O2SAT 100; BMI 25.3
--- NOTE | 2022-10-09 07:45 | ED.ABDPAIN ---
HPI - Abdominal Pain General Chief Complaint: Abdominal Pain Stated Complaint: Pelvic pain Time Seen by Provider: 10/09/22 07:33 Source: patient Mode of arrival: ambulatory Limitations: no limitations History of Present Illness HPI narrative: 32 yo female with history of ovarian cysts here with complaints of left lower pelvic pain since Thursday described as pressure with nausea. No fevers, chills, vomiting, diarrhea, constipation, urinary symptoms, vaginal discharge. Has been taking ibuprofen which helps her pain. NO new sexual partners. Has been sexually active with one male partner. Does not use condoms, no additional contraceptives. Patient is trying to get . Followed by [facility] [facility] G[employer] AND [employer] SYSTEM ENGINEER (Alisson Urrutia). Last visit was in March 2022 (patient having pelvic pain and had an US which showed bilateral ovarian cysts, two small uterine fibroids). Patient reports she has a follow-up in October. She has not tried calling her GUIDANCE AND CONTROL SYSTEM ENGINEER since Thursday. Has had normal PAPs to date reportedly. Related Data Home Medications Medication Instructions Recorded Confirmed amitriptyline 10 mg tablet 10 mg PO BEDTIME 10/21/21 04/28/22 Previous Rx's Medication Instructions Recorded folic acid 1 mg tablet 1 mg PO DAILY #90 tabs 10/21/21 Allergies Allergy/AdvReac Type Severity Reaction Status Date / Time No Known Allergies Allergy Verified 10/09/22 07:36 [No Known Allergies*] Review of Systems Review of Systems Yes all other systems are reviewed and are negative Constitutional: Reports no additional constitutional complaints, Denies body ache(s), Denies chills, Denies fever(s), Denies headache(s) and Denies weakness Eyes: Reports no additional eye complaints and Denies change in vision Reports system reviewed and no additional complaints, except as documented, Denies dizziness, Denies headache(s), Denies nasal congestion, Denies nasal discharge and Denies neck pain Cardiovascular: Reports no additional cardiovascular complaints, Denies chest pain, Denies leg edema and Denies dyspnea Respiratory: Reports no additional respiratory complaints, Denies cough and Denies dyspnea Gastrointestinal: Reports no additional gastrointestinal complaints, Denies abdominal pain, Denies diarrhea, Reports nausea and Denies vomiting Genitourinary: Reports no additional female genitourinary complaints, Denies hematuria, Denies dyspareunia, Denies dysuria, Reports pelvic pain, Denies flank pain, Denies urinary incontinence, Denies urinary hesitancy, Denies urinary urgency and Denies vaginal discharge Musculoskeletal: Reports no additional musculoskeletal complaints, Denies back pain, Denies arthralgias, Denies joint swelling, Denies neck pain, Denies numbness and Denies tingling Skin/Breast: Reports system reviewed and no additional complaints, except as docu and Denies rash Reports system reviewed and no additional complaints, except as documented, Denies dizziness, Denies headache(s), Denies numbness, Denies tingling and Denies weakness PMFSH Past Medical History Attestation statement: The following information was validated with the patient. Source: old records reviewed and nursing notes reviewed Medical History Ovarian cyst Patient denies medical problems Severe headache Family History Family History Father Thyroid disease Mother Thyroid disease Social History Social History Alcohol intake: never Patient Tobacco Use Status: Never used Tobacco Advance Directives: No Advance Directives Information Provided: Yes Gender identity: Female Physical Exam ED Vital Signs: Vital Signs - 24 hr 10/09/22 07:34 10/09/22 10:25 Temperature 98.6 F Pulse Rate 68 67 Respiratory Rate 18 18 Blood Pressure 141/71 H 125/74 Pulse Oximetry 100 98 Oxygen Delivery Method Room Air Room Air BMI result Body Mass Index 25.3 Const General: cooperative, healthy appearing, comfortable and no acute distress Orientation/consciousness: patient oriented x3 Limitations: no limitations HENTX Head: Yes normal to inspection Ears: hearing grossly normal bilaterally Eyes General: appearance normal, both eyes and all related structures Pupils: Equal, round and reactive pupils present Neck Neck: Yes normal visual inspection Chest Chest palpation & inspection: normal inspection of the chest Resp Effort & Inspection: normal respiratory effort Auscultation: clear to auscultation bilaterally Cardio Rate: regular rate Rhythm: regular rhythm Peripheral pulses: Peripheral pulses 2+ throughout GI Inspection: Yes normal to inspection Palpation (GI): Soft to palpation, Tenderness to palpation present (GI) (Mild TTP LLQ ) obturator sign negative, psoas sign negative and with no rebound tenderness and no guarding Auscultation: normal bowel sounds 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 General: Yes no CVA tenderness Speculum Exam - Vagina: normal appearance of the vagina Speculum Exam - Cervix: normal appearance of the cervix and nontender Bimanual exam- vagina & uterus: normal bimanual exam, No Cervical tenderness present and no cervical motion tenderness Bimanual Exam- Adnexa, other: normal adnexae and no tenderness Back/Spine/Pelvis Back: no CVA tenderness Thoracic/Lumbar Spine: thoracic and lumbar spine normal to inspection Skin General skin exam: no rashes or lesions noted Neuro General: patient oriented x3 and moves all extremities Cranial nerves: Yes Equal, round and reactive pupils present Course Course Course Narrative: Labs unremarkable. UA is negative for infection. Urine is negative. Vaginal swabs were sent and are pending. Pelvic ultrasound shows a small amount of pelvic free fluid otherwise unremarkable. Patient feels improved after receiving ibuprofen. No adnexal tenderness or cervical motion tenderness on exam to suggest PID. Patient has follow-up with gynecology outpatient few weeks. Recommend she continue Motrin, warm compresses and return for any worsening symptoms. Reviewed worrisome signs and symptoms of when to return to the emergency room. Comfortable plan for discharge home. Medical Decision Making Medical Decision Making [facility] Narrative: 32 yo female with history of ovarian cysts, uterine fibroids here with complaints of left sided pelvic pain since Thursday described as pressure with no nausea. +TTP to left lower abdomen with no rebound or guarding. VSS Will need labs, UA, pelvic exam (will send testing for CT NG, BV), pelvic US Differential Diagnosis Differential Diagnoses: The differential diagnosis associated with the presentation includes ovarian cyst, ovarian torsion, ectopic , PID, TOA low concern for diverticulitis, appendicitis, renal colic, pyelonephritis, pancreatitis . Lab Data [facility] Lab Attestation statement: I reviewed the patient's lab results. 10/09/22 07:58 10/09/22 07:58 Labs: Lab Results 10/09/22 10/09/22 10/09/22 Range/Units 07:58 07:58 07:58 WBC 7.0 (4.8-10.8) X10*3/uL RBC 4.17 L (4.20-5.50) X10*6/uL Hgb 12.9 (12.0-16.0) g/dl Hct 38.5 (37.0-47.0) % MCV 92.3 (80.0-98.0) fL MCH 30.9 (27.0-33.0) pg MCHC 33.5 (31.0-35.0) g/dl RDW 12.2 (11.0-16.0) % Plt Count 228 (160-400) X10*3/uL MPV 10.5 (9.4-12.3) fL Immature Gran % (Auto) 0.1 (0.0-0.4) % Neut % (Auto) 60.6 (45-73) % Lymph % (Auto) 28.6 (20-40) % [place] % (Auto) 6.4 (2-11) % Eos % (Auto) 3.7 (0-4) % Baso % (Auto) 0.6 (0-2) % Lymph # (Auto) 2.0 (1.2-4.9) X10*3/uL [place] # (Auto) 0.5 (0.1-1.2) X10*3/uL Eos # (Auto) 0.3 (0.0-0.4) X10*3/uL Baso # (Auto) 0.0 (0.0-0.2) X10*3/uL Abs Immat Gran (auto) 0.01 (0.00-0.03) X10*3/uL Absolute Neuts (auto) 4.3 (2.0-8.3) x10*3/uL Absolute Nucleated RBC 0.000 (0.0-0.012) X10*3/uL Nucleated RBC % (auto) 0.0 (0.0-0.2) /100WBC Sodium 138 (135-145) mmol/L Potassium 3.9 (3.3-5.1) mmol/L Chloride 106 (96-108) mmol/L Carbon Dioxide 24 (22-29) mmol/L Anion Gap 12 (12-20) BUN 8 L (9-16) mg/dL Creatinine 0.86 (0.5-1.4) mg/dL Estim Creat Clear Calc 78.5 Estimated GFR > 60 Random Glucose 77 (60-115) mg/dL Calcium 9.5 (8.4-10.2) mg/dL Total Bilirubin 0.3 (0.0-1.0) mg/dL Direct Bilirubin 0.1 (0.0-0.5) mg/dL AST 16 (5-31) U/L ALT 11 (0-31) U/L Alkaline Phosphatase 70 (39-117) U/L Total Protein 7.3 (6.5-8.0) g/dL Albumin 4.3 (3.5-5.0) g/dL Urine Color Yellow Urine Appearance Clear Urine pH 5.5 (5.0-9.0) Ur Specific [place] 1.025 (1.005-1.025) Urine Protein Negative (Neg-Trace) mg/dL Urine Glucose (UA) Negative (Negative) mg/dL Urine Ketones Negative (Negative) mg/dL Urine Blood Negative (Negative) Urine Nitrite Negative (Negative) Ur Leukocyte Esterase Negative (Negative) Urine Test (NEGATIVE) 10/09/22 Range/Units 07:58 WBC (4.8-10.8) X10*3/uL RBC (4.20-5.50) X10*6/uL Hgb (12.0-16.0) g/dl Hct (37.0-47.0) % MCV (80.0-98.0) fL MCH (27.0-33.0) pg MCHC (31.0-35.0) g/dl RDW (11.0-16.0) % Plt Count (160-400) X10*3/uL MPV (9.4-12.3) fL Immature Gran % (Auto) (0.0-0.4) % Neut % (Auto) (45-73) % Lymph % (Auto) (20-40) % [place] % (Auto) (2-11) % Eos % (Auto) (0-4) % Baso % (Auto) (0-2) % Lymph # (Auto) (1.2-4.9) X10*3/uL [place] # (Auto) (0.1-1.2) X10*3/uL Eos # (Auto) (0.0-0.4) X10*3/uL Baso # (Auto) (0.0-0.2) X10*3/uL Abs Immat Gran (auto) (0.00-0.03) X10*3/uL Absolute Neuts (auto) (2.0-8.3) x10*3/uL Absolute Nucleated RBC (0.0-0.012) X10*3/uL Nucleated RBC % (auto) (0.0-0.2) /100WBC Sodium (135-145) mmol/L Potassium (3.3-5.1) mmol/L Chloride (96-108) mmol/L Carbon Dioxide (22-29) mmol/L Anion Gap (12-20) BUN (9-16) mg/dL Creatinine (0.5-1.4) mg/dL Estim Creat Clear Calc Estimated GFR Random Glucose (60-115) mg/dL Calcium (8.4-10.2) mg/dL Total Bilirubin (0.0-1.0) mg/dL Direct Bilirubin (0.0-0.5) mg/dL AST (5-31) U/L ALT (0-31) U/L Alkaline Phosphatase (39-117) U/L Total Protein (6.5-8.0) g/dL Albumin (3.5-5.0) g/dL Urine Color Urine Appearance Urine pH (5.0-9.0) Ur Specific [place] (1.005-1.025) Urine Protein (Neg-Trace) mg/dL Urine Glucose (UA) (Negative) mg/dL Urine Ketones (Negative) mg/dL Urine Blood (Negative) Urine Nitrite (Negative) Ur Leukocyte Esterase (Negative) Urine Test NEGATIVE (NEGATIVE) Independent Interpretation I performed an independent interpretation of an: Ultrasound Interpretation: I independetely reviewed the US and agree with the radiologist report Radiology Impression Discussion of test interpretation with radiology: I have reviewed the radiologist's reading. Radiologist Impression: FINDINGS: The uterus measures 8.6 x 3.8 x 5.3 cm in longitudinal by AP by transverse dimension. The endometrial stripe is not thickened and measures 0.9 cm. Previously visualized uterine fibroids not discretely visualized on today's imaging. The left ovary measures approximately 3.1 x 2.1 x 1.9 cm and is normal. The right ovary measures approximately 3.1 x 2.1 x 2.3 cm and contains a suspected 1.1 cm cyst versus dominant follicle. Spectral analysis reveals normal arterial and venous waveforms in the bilateral ovaries. There are no abnormal adnexal masses. There is a small amount of free fluid in the pelvis, nonspecific but often times physiologic. US/US pelvic and transvaginal IMPRESSION: 1.? Normal thickness endometrial stripe. 2.? Normal arterial and venous waveforms of the bilateral ovaries. 3.? Small amount of free pelvic fluid, nonspecific but often times physiologic. External Record Review External record reviewed: Prior outpatient radiology Reviewed US from 03/2022 Medications Administered Discontinued Medications Generic Name Dose Route Start Last Admin Trade Name Hien PRN Reason Stop Dose Admin Ibuprofen 600 mg 10/09/22 07:47 10/09/22 08:42 Ibuprofen 600 Mg Tablet PO 10/09/22 07:48 600 mg ONCE ONE Administration Discharge Plan Discharge Clinical Impression: Pelvic pain Patient Disposition: Home, Self-Care Instructions: Pelvic Pain in Women (ED), Pelvic Pain (ED) Additional Instructions: We sent testing for common vaginal infections in women. We will call you if these are positive in you need additional treatment. 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
[2022-10-09 08:03] LABS: MANUAL DIFF FLAG NO
[2022-10-09 08:08] LABS: Basophils Percent Auto 0.6 % (0-2); Eosinophils Absolute Auto 0.3 X10*3/uL (0.0-0.4); Eosinophils Percent Auto 3.7 % (0-4); Hematocrit 38.5 % (37.0-47.0); Hemoglobin 12.9 g/dl (12.0-16.0); Imm Gran Abs Auto 0.01 X10*3/uL (0.00-0.03); Imm Gran Pct Auto 0.1 % (0.0-0.4); Lymphocytes Percent Auto 28.6 % (20-40); Mean Corpuscular HGB Conc 33.5 g/dl (31.0-35.0); Mean Corpuscular Hemoglobin 30.9 pg (27.0-33.0); Mean Corpuscular Volume 92.3 fL (80.0-98.0); Mean Platelet Volume 10.5 fL (9.4-12.3); Monocytes Absolute Auto 0.5 X10*3/uL (0.1-1.2); Monocytes Percent Auto 6.4 % (2-11); Neutrophils Absolute Auto 4.3 x10*3/uL (2.0-8.3); Neutrophils Percent Auto 60.6 % (45-73); Platelet Count 228 X10*3/uL (160-400); Red Blood Count 4.17 X10*6/uL (4.20-5.50); Red Cell Distribution Width 12.2 % (11.0-16.0)
[2022-10-09 08:10] LABS: Appearance Urine Clear; Color Urine Yellow; Glucose Urine UA Negative (Negative); Leukocyte Esterase Urine Negative (Negative); Nitrite Urine Negative (Negative); PH 5.5 (5.0-9.0); Specific Gravity - Urine 1.025 (1.005-1.025); Urine Blood Negative (Negative); Urine Ketones Negative (Negative); Urine Protein Negative (Neg-Trace)
[2022-10-09 08:14] LABS: UPreg QC Valid YES; Urine Pregnancy NEGATIVE (NEGATIVE)
[2022-10-09 08:22] LABS: Alanine Aminotransferase 11 U/L (0-31); Albumin Level 4.3 g/dL (3.5-5.0); Alkaline Phosphatase 70 U/L (39-117); Anion Gap 12 (12-20); Aspartate Amino Transferase 16 U/L (5-31); Bilirubin Direct 0.1 mg/dL (0.0-0.5); Bilirubin Total 0.3 mg/dL (0.0-1.0); Blood Urea Nitrogen 8 mg/dL (9-16); Calcium 9.5 mg/dL (8.4-10.2); Carbon Dioxide 24 mmol/L (22-29); Chloride 106 mmol/L (96-108); Creatinine Clr Calc Pharmacy 78.5; Estimated Glomerular Filt Rate > 60; Glucose Random 77 mg/dL (60-115); Potassium 3.9 mmol/L (3.3-5.1); Sodium 138 mmol/L (135-145); Total Protein 7.3 g/dL (6.5-8.0)
[2022-10-09] MEDS: Ibuprofen 600 MG TABLET PO (08:42)
[2022-10-09 10:25] VITALS: BP 125/74; PULSE 67; RESP 18; O2SAT 98
[2022-10-09 11:26] LABS: CT PCR NOT DETECTED (Not Detect.); NG PCR NOT DETECTED (Not Detect.)
[2022-10-09 14:55] LABS: BV Int Neg Control Negative (Negative); BV Int Pos Control Positive (Positive)
== END 2022-10-09 11:28 | disposition home or self-care (01) ==
PROVIDERS: Nurse Practitioner Family; Emergency Provider Emergency Medicine Emergency Medical Services; PCP Registered Nurse
DX: R10.2 Pelvic and perineal pain (principal); Z79.899 Other long term (current) drug therapy; Z20.2 Contact with and (suspected) exposure to infections with a predominantly sexual mode of transmission
CPT/HCPCS: 0353U; 36415; 76830; 76856; 80048; 80076; 81003; 81025; 85025; 87480; 87510; 87660; 93975; 99284; J2250; J3010

== ENCOUNTER 2023-01-28 09:57 | Outpatient (AMB) | payer MEDICAID, SELFPAY ==
[2023-01-28 10:00] VITALS: BP 120/76; BMI 25.5
--- NOTE | 2023-01-28 10:00 | MHC.OFFVIS ---
Intake Vital Signs 01/28/23 10:00 Height 5 ft 1 in Weight 135 lb BMI 25.5 BP 120/76 Intake Visit Reasons: Annual Intake Note: still having pelvic pain and pain sometimes gives her nausea and is having breast pain. Water/Wastewater Engineer Required: No Information Interpreted: non-clinical & clinical Carbon Dioxide Operator: Carbon Dioxide Operator Present ([place]) Allergies No Known Allergies [No Known Allergies*] Allergy (Verified 01/28/23 10:04) Medication List - Last Reconciled 01/28/23 by Adriana Wang CNM cyclobenzaprine 10 mg PO TID ibuprofen 600 mg PO Q6H PRN meloxicam 7.5 mg PO DAILY Is last menstrual period known: Yes Last menstrual period: 01/08/23 Post menopausal: No HPI Annual HPI Details Patient is here for carburizer annual exam she still is aware of some pelvic pain sometimes and it is usually more the week before she gets he period.. She says it is not as bad as as it was in the past. She has had ultrasounds done over the last couple of years that showed pelvic varices as well as small fibroids and some ovarian cysts. Her periods have been regular since she stop the Depo-Provera she is open to but she is not actively actively trying she did think she ovulated last week and did have sex last week she is also where for breast being more tender the week before her period. [facility] Medical History Severe headache Ovarian cyst Patient denies medical problems Family History Father Thyroid disease Mother Thyroid disease Social History Alcohol intake: never Patient Tobacco Use Status: Never used Tobacco Gender identity: Female Female Reproductive History Menstrual Age of Menarche: 11 Duration of menses: 3-5 days Date of last menstrual period: 01/08/23 control method: none Total pregnancies: 3 Full term: 2 Number of Living Children: 2 Ab spontaneous: 1 Date of last pap smear: 10/19/20 (negative) Physical Exam Vital Signs: Last Vital Signs BP 120/76 01/28/23 10:00 BMI result Body Mass Index 25.5 Const General: healthy appearing, comfortable, no acute distress, well developed and alert Nutritional Appearance: average body habitus Orientation/consciousness: patient oriented x3 Limitations: no limitations HEENT Head: Yes normocephalic Neck Neck: Yes normal visual inspection Chest Chest palpation & inspection: normal inspection of the chest Breast/axilla inspection: normal inspection of the breasts and normal inspection of the axillae Breast/axilla palpation: normal palpation of the breasts and normal palpation of the axillae Resp Effort & Inspection: normal respiratory effort GI Inspection: Yes normal to inspection, No Abdominal wall edema and No distended Palpation (GI): Soft to palpation and nontender General: Yes bladder normal to palpation External Female Exam: normal external appearance and normal appearance of the urethra Speculum Exam - Vagina: normal appearance of the vagina, normal palpation and normal vaginal discharge Speculum Exam - Cervix: normal appearance of the cervix, normal palpation and nontender Bimanual exam- vagina & uterus: normal bimanual exam, normal palpation, uterine size normal, bladder normal to palpation, consistency normal, normal palpation, uterine mobility normal, uterine shape normal, No Cervical tenderness present, non-tender and no cervical motion tenderness Bimanual Exam- Adnexa, other: normal adnexae, no masses, normal and No adnexal tenderness Neuro General: patient oriented x3 Results Reviewed Results Reviewed: [place] [address] Ultrasound Report Signed Patient: Quyen Schmitt MR#: [id number] : 1990 Acct:[id number] Age/Sex: 31 / F ADM Date: 12/11/21 Loc: HO.US Attending Dr: Adriana Wang CNM Ordering Physician: Adriana Wang CNM Date of Service: 12/11/21 Procedure(s): US pelvic and transvaginal Accession Number(s): [id number] cc: Adriana Wang CNM~ EXAMINATION: US PELVIS CLINICAL INFORMATION: Pelvic and perineal pain. COMPARISON: None TECHNIQUE: Ultrasound of the pelvis is performed using both transabdominal and transvaginal transducers along with Doppler. Transvaginal imaging is performed due to inadequate visualization transabdominally. FINDINGS: Uterus: The uterus is anteverted and measures 8.1 x 4.2 x 5.2 cm. The double wall endometrial thickness is 4 mm. The uterus is smooth in contour and has somewhat heterogeneous echogenicity. There is an anterior uterine body fibroid measuring 1.7 x 1.6 x 2 cm. This is somewhat heterogeneous. This is similar to prior. Fundal fibroid measures 0.7 cm, decreased in prominence from prior. Adnexa: Both ovaries are visualized. There is normal color flow to the adnexa. There is no ovarian torsion. There is no pelvic ascites or fluid collection. Right ovary measures 2.8 x 1.5 x 1.5 cm. Left ovary measures 2.8 x 2.1 x 2.2 cm. US/US pelvic and transvaginal IMPRESSION: Uterine fibroids are similar to decreased in size from prior. No suspicious mass. Dictated By: Alex Finch MD Signed By: <Electronically signed by Alex Finch MD in OV> 12/12/21 1459 DD/ 1159 TD/TT: Stock Preparation Operator: JACOB Patient: Quyen Schmitt MR#: [id number] : 1990 Acct:[id number] Age/Sex: 31 / F ADM Date: 04/04/22 Loc: .US Attending Dr: Adriana Wang CNM Ordering Physician: Adriana Wang CNM Date of Service: 04/04/22 Procedure(s): US pelvic and transvaginal Accession Number(s): [id number] cc: Adriana Wang CNM~ EXAMINATION: US PELVIC AND TRANSVAGINAL CLINICAL INFORMATION: Amenorrhea. COMPARISON: Pelvic ultrasound 12/11/2021. TECHNIQUE: Ultrasound of the pelvis is performed using both transabdominal and transvaginal transducers along with Doppler. Transvaginal imaging is performed due to inadequate visualization transabdominally. FINDINGS: UTERUS: The uterus is anteverted and anteflexed measuring 8.9 x 3.8 x 5.1 cm for a volume of 90 mL. The double wall endometrial thickness is 0.8 mm. The uterus is smooth in contour and has normal myometrial echogenicity. Two fibroids are again seen, one anterior body fibroid measuring 1.6 x 1.7 x 1.8 cm (previously 1.7 x 1.6 x 2.0 cm) and a smaller fibroid at the fundus measuring 5 x 6 x 6 mm (previously 7 x 6 x 7 mm). Nabothian cysts are present in the cervix. ADNEXA: Both ovaries are visualized. There is normal color flow to the adnexa. There is no ovarian torsion. There is no pelvic ascites or fluid collection. Right ovary measures 3.1 x 1.5 x 2.1 cm for a volume of 5.1 mL. More follicular cysts are present. Left ovary measures 3.4 x 1.9 x 2.8 cm for a volume of 9.5 mL and contains cysts, the largest measuring 1.6 x 1.7 x 1.9 cm. Bilateral pelvic varices are seen. US/US pelvic and transvaginal IMPRESSION: 1. Two small uterine fibroids. 2. Bilateral ovarian cysts. 3. Bilateral pelvic varices. Dictated By: Chris Delaney MD Signed By: <Electronically signed by Chris Delaney MD in OV> 04/05/22 0955 DD/ 1305 TD/TT: Stock Preparation Operator: KATERINE Patient: Quyen Schmitt MR#: [id number] : 1990 Acct:[id number] Age/Sex: 32 / F ADM Date: 10/09/22 Loc: .ED Attending Dr: Ordering Physician: Lynette Riojas NP Date of Service: 10/09/22 Procedure(s): US pelvic and transvaginal Accession Number(s): [id number] cc: Lynette Riojas NP~ EXAM: Pelvic Ultrasound CLINICAL INDICATION: Left-sided pelvic pain. Rule out cyst versus torsion COMPARISON: Pelvic ultrasound 04/04/2022 TECHNIQUE: The pelvis was evaluated using transabdominal and transvaginal imaging. The patient was not amenable to endovaginal interrogation. Color Doppler imaging and spectral analysis of the bilateral ovaries was also performed. FINDINGS: The uterus measures 8.6 x 3.8 x 5.3 cm in longitudinal by AP by transverse dimension. The endometrial stripe is not thickened and measures 0.9 cm. Previously visualized uterine fibroids not discretely visualized on today's imaging. The left ovary measures approximately 3.1 x 2.1 x 1.9 cm and is normal. The right ovary measures approximately 3.1 x 2.1 x 2.3 cm and contains a suspected 1.1 cm cyst versus dominant follicle. Spectral analysis reveals normal arterial and venous waveforms in the bilateral ovaries. There are no abnormal adnexal masses. There is a small amount of free fluid in the pelvis, nonspecific but often times physiologic. US/US pelvic and transvaginal IMPRESSION: 1. Normal thickness endometrial stripe. 2. Normal arterial and venous waveforms of the bilateral ovaries. 3. Small amount of free pelvic fluid, nonspecific but often times physiologic. Dictated By: Terrance Knutson MD Signed By: <Electronically signed by Terrance Knutson MD in OV> 10/09/22 1041 DD/ 0948 TD/TT: Stock Preparation Operator: Name: Quyen Schmitt Age/Sex: 30/F Attending: Alisson Urrutia CNM : 1990 Submitted by: Adriana Wang Copies to: Alisson Urrutia [facility] MR #: [id number] Status: DEP REF Collected: 10/18/20 Location: .LAB Received: 10/19/20 Interpretation Satisfactory for evaluation. Mild inflammation. Negative for intraepithelial lesion or malignancy. HPV mRNA E6/E7: NOT DETECTED This assay detects E6/E7 viral messenger RNA (mRNA) from 14 high-risk HPV types (16, 18, 31, 33, 35, 39, 45, 51, 52, 56, 58, 59, 66, 68) HPV testing performed by [facility], [place], [place]. See reference laboratory portion of the EMR for entire report. Clinical Information LMP: Unsure date (depo) Previous PAP test: 2018, wnl Material Received ThinPrep cervical Copies To Alisson Urrutia [address] Ramirez [address] [place] [id number] Adriana Wang [address] Ramirez [address] [place] [id number] Electronically Signed By: AMBER Rasmussen (ASCP) 10/22/20 1217 The Pap Test is a screening procedure with the inherent possibility of both false negative and false positive results. Results should be interpreted in the context of historic and current clinical findings. Reliability of the Pap Test is enhanced by performing the test on a regular repetitive basis. Patient: Jose Daniel Page 1 of 1 Assessment & Plan Assessment & Plan (1) Fibroids: Code(s): D21.9 - Benign neoplasm of connective and other soft tissue, unspecified (2) Pelvic pain: Comment: often before menses, better than before, has been evaluated,,, Code(s): R10.2 - Pelvic and perineal pain (3) Cervical cancer screening: Comment: 10/18/20 pap= neg , w neg hpv Code(s): Z12.4 - Encounter for screening for malignant neoplasm of cervix (4) Well woman exam with routine gynecological exam: Code(s): Z01.419 - Encounter for gynecological examination (general) (routine) without abnormal findings (5) Family planning counseling: Code(s): Z30.09 - Encounter for other general counseling and advice on contraception Plan -----Discussed in this visit the following: healthy balanced diet, regular and consistent exercise, getting recommended health screens, doing the best she can for her particular health concerns, kegel exercises, pap smear screening and followup recommendations, mammography screening and SBE, normal changes in cycles in her life stage--- . Offered vitamins if she wanted as she is open to and she thought about it but she declined. She is taking the cyclobenzaprine because somebody gave it to her at the emergency room or urgent care for a syndrome she was diagnosed with --she found the papers it is carpal tunnel syndrome they did also give her a wrist brace which she says helps. Reviewed her past ultrasounds which showed possible reasons for her pelvic discomfort both normally throughout the cycle and also she has some extra reasons with the small fibroids that have been seen variously with the ultrasounds as well as pelvic varices. She is not actively trying to get but is open to it if she does at this time she is getting regular periods will see her in 1 year she was not due for Pap smear this year. Orders: Orders Bacterial Vaginosis Panel Today R10.2 - Pelvic and perineal pain CT NG by PCR Today R10.2 - Pelvic and perineal pain Coding Level of Care Code Est Pt Prev Care 18-39y([id number]) Diagnoses Fibroids D21.9 Pelvic pain R10.2 Cervical cancer screening Z12.4 Well woman exam with routine gynecological exam Z01.419 Family planning counseling Z30.09
== END 2023-01-28 10:47 | disposition home or self-care (01) ==
PROVIDERS: PCP Registered Nurse; Visit Provider Advanced Practice Midwife
DX: D21.9 Benign neoplasm of connective and other soft tissue, unspecified (principal); R10.2 Pelvic and perineal pain; Z12.4 Encounter for screening for malignant neoplasm of cervix; Z01.419 Encounter for gynecological examination (general) (routine) without abnormal findings; Z30.09 Encounter for other general counseling and advice on contraception
CPT/HCPCS: 99395

== ENCOUNTER 2023-01-28 09:57 | Outpatient (REF) | payer MEDICAID, SELFPAY ==
[2023-01-29 03:09] LABS: CT PCR NOT DETECTED (Not Detect.); NG PCR NOT DETECTED (Not Detect.)
[2023-01-29 10:21] LABS: BV Int Neg Control Negative (Negative); BV Int Pos Control Positive (Positive)
== END 2023-01-28 09:58 | disposition home or self-care (01) ==
LOC: HO.LNP 09:57
PROVIDERS: PCP Registered Nurse; Visit Provider Advanced Practice Midwife
DX: R10.2 Pelvic and perineal pain (principal); D21.9 Benign neoplasm of connective and other soft tissue, unspecified
CPT/HCPCS: 0353U; 87480; 87510; 87660

== ENCOUNTER 2023-06-01 09:43 | Outpatient (REF) | payer MEDICAID, SELFPAY ==
[2023-06-01 12:01] LABS: TSH reflex Free T4 1.44 uIU/mL (0.32-4.0)
[2023-06-03 22:19] LABS: TS Negative Control Passed; TS Panel A 0; TS Panel B 0; TS Positive Control Passed; TSpotTB Negative (Negative)
== END 2023-06-01 09:44 | disposition home or self-care (01) ==
LOC: HO.HHCL 09:43
PROVIDERS: Visit Provider Nurse Practitioner Family
DX: Z83.49 Family history of other endocrine, nutritional and metabolic diseases (principal)
CPT/HCPCS: 36415; 84443; 86481

== ENCOUNTER 2023-08-21 11:15 | Outpatient (REF) | payer MEDICAID, SELFPAY ==
[2023-08-21 19:14] LABS: Bacterial Vaginosis PCR POSITIVE (Negative); Candida Group PCR NOT DETECTED (Not Detect); Candida glab krusei PCR NOT DETECTED (Not Detect); Trichomonas vaginalis PCR NOT DETECTED (Not Detect)
[2023-08-21 19:33] LABS: CT PCR NOT DETECTED (Not Detect.); NG PCR NOT DETECTED (Not Detect.)
== END 2023-08-21 11:16 | disposition home or self-care (01) ==
LOC: HO.LAB 11:15
PROVIDERS: PCP Registered Nurse; Visit Provider Advanced Practice Midwife
DX: N89.8 Other specified noninflammatory disorders of vagina (principal); N83.209 Unspecified ovarian cyst, unspecified side; D21.9 Benign neoplasm of connective and other soft tissue, unspecified; Z20.2 Contact with and (suspected) exposure to infections with a predominantly sexual mode of transmission
CPT/HCPCS: 0352U; 0353U; 99212

== ENCOUNTER 2023-08-21 11:15 | Outpatient (AMB) | payer MEDICAID, SELFPAY ==
[2023-08-21 11:29] VITALS: BP 100/62; BMI 24.7
--- NOTE | 2023-08-21 11:29 | A.OFFVIS_ITS ---
Vital Signs 08/21/23 11:29 Height 5 ft 1 in Weight 131 lb BMI 24.7 BP 100/62 Intake Visit Reasons: discharge Milk Drying Machine Operator Required: No Information Interpreted: clinical only Fisheries Technician: Fisheries Technician Present Allergies No Known Allergies [No Known Allergies*] Allergy (Verified 08/21/23 11:29) Medication List - Last Reconciled 08/21/23 by Adriana Wang CNM No Known Home Meds Is last menstrual period known: Yes Last menstrual period: 08/10/23 Do you need a note to return to daycare/school/sports/work: No HPI HPI discharge: Details: Discharge checked she has had it for of a few days it has a little bit itchy additionally sometimes for the last 2 or 3 months she has been noticing occasional discomfort when she has sex on the left side. Uses panty liners. also uses condoms for sex. Says she is history of ovarian cysts and also fibroids they did not show up on the last ultrasound PFSH Medical History Severe headache Ovarian cyst Patient denies medical problems Family History Father Thyroid disease Mother Thyroid disease Social History Alcohol intake: never Patient Tobacco Use Status: Never used Tobacco Gender identity: Female Female Reproductive History Menstrual Age of Menarche: 11 Duration of menses: 3-5 days Date of last menstrual period: 08/10/23 control method: none Total pregnancies: 3 Full term: 2 Date of last pap smear: 10/19/20 (negative,previous pap 2018 WNL) Physical Exam Vital Signs: Last Vital Signs BP 100/62 08/21/23 11:29 BMI result Body Mass Index 24.7 Other: Discharge is slightly thick slightly liquidy homogeneous but not consistent with BV at all cervix multiparous will await cultures. Cervix mobile nontender uterus nontender mobile adnexa nontender left slightly more palpable in right but not enlarged good tone with Kegel. External Female Exam: normal external appearance Speculum Exam - Vagina: normal appearance of the vagina and normal vaginal discharge Speculum Exam - Cervix: normal appearance of the cervix Bimanual exam- vagina & uterus: normal bimanual exam, uterine size normal, consistency normal, uterine mobility normal, uterine shape normal and non-tender Bimanual Exam- Adnexa, other: normal adnexae, no masses and No adnexal tenderness Results Reviewed Results Reviewed: [address] [address] Ultrasound Report Signed Patient: Quyen Schmitt MR#: [id number] : 1990 Acct:[id number] Age/Sex: 32 / F ADM Date: 10/09/22 Loc: HO.ED Attending Dr: Ordering Physician: Lynette Riojas NP Date of Service: 10/09/22 Procedure(s): US pelvic and transvaginal Accession Number(s): [id number] cc: Lynette Riojas NP~ EXAM: Pelvic Ultrasound CLINICAL INDICATION: Left-sided pelvic pain. Rule out cyst versus torsion COMPARISON: Pelvic ultrasound 04/04/2022 TECHNIQUE: The pelvis was evaluated using transabdominal and transvaginal imaging. The patient was not amenable to endovaginal interrogation. Color Doppler imaging and spectral analysis of the bilateral ovaries was also performed. FINDINGS: The uterus measures 8.6 x 3.8 x 5.3 cm in longitudinal by AP by transverse dimension. The endometrial stripe is not thickened and measures 0.9 cm. Previously visualized uterine fibroids not discretely visualized on today's imaging. The left ovary measures approximately 3.1 x 2.1 x 1.9 cm and is normal. The right ovary measures approximately 3.1 x 2.1 x 2.3 cm and contains a suspected 1.1 cm cyst versus dominant follicle. Spectral analysis reveals normal arterial and venous waveforms in the bilateral ovaries. There are no abnormal adnexal masses. There is a small amount of free fluid in the pelvis, nonspecific but often times physiologic. US/US pelvic and transvaginal IMPRESSION: 1. Normal thickness endometrial stripe. 2. Normal arterial and venous waveforms of the bilateral ovaries. 3. Small amount of free pelvic fluid, nonspecific but often times physiologic. Dictated By: Terrance Knutson MD Signed By: <Electronically signed by Terrance Knutson MD in [place]> 10/09/22 1041 DD/ 0948 TD/TT: Simulation Tech: PD Assessment & Plan Assessment & Plan (1) Ovarian cyst: Comment: hx of.... has some llq discomfort x 3 months, await u/s Code(s): N83.209 - Unspecified ovarian cyst, unspecified side Category: Medical (2) Fibroids: Comment: hx of, though not seen on last u/s. u/s ordered will revi at october annual Code(s): D21.9 - Benign neoplasm of connective and other soft tissue, unspecified Category: Medical Plan Will await test results of testing today for gonorrhea chlamydia trich which would be STDs and also testing for Gardnerella and yeast. Discharge appears on the whole mostly normal. Given her slight discomfort on the left side in her history of fibroids and ovarian cysts need which were seen on the last ultrasound I am ordering an ultrasound and we will review it when I see her for her annual exam in October. She has on the portal and can check results though if treatment when necessary she would not get a call before Thursday. Orders: Orders US pelvic and transvaginal Today D21.9 - Benign neoplasm of connective and other soft tissue, unspecified, N83.209 - Unspecified ovarian cyst, unspecified side Coding Level of Care Code Est Pt Level 3 ([id number]) Diagnoses Ovarian cyst N83.209 Fibroids D21.9
== END 2023-08-21 12:14 | disposition home or self-care (01) ==
LOC: HO.HWSM 11:15
PROVIDERS: PCP Registered Nurse; Visit Provider Advanced Practice Midwife
DX: N83.209 Unspecified ovarian cyst, unspecified side (principal); D21.9 Benign neoplasm of connective and other soft tissue, unspecified
CPT/HCPCS: 99213

== ENCOUNTER 2023-09-16 10:37 | Outpatient (REF) | payer MEDICAID, SELFPAY ==
--- NOTE | ~2023-09-16 | US_ITS ---
EXAMINATION: US PELVIS CLINICAL INFORMATION: Ovarian cyst leiomyoma, last menstrual period 09/05/2023. COMPARISON: 10/09/2022. TECHNIQUE: Ultrasound of the pelvis is performed using both transabdominal and transvaginal transducers along with Doppler. Transvaginal imaging is performed due to inadequate visualization transabdominally. FINDINGS: The uterus is surgically absent and anteverted. The uterus measures 9.4 x 4.4 x 5.2 cm. Nabothian cysts in the cervix. Endometrial thickness is 10 mm. No significant free fluid. Prominent vasculature at the left pelvis may represent pelvic congestion. Right ovary measures 2.5 x 1.5 x 1.6 cm, volume 3.2 mL and is grossly unremarkable, although visualization is limited due to bowel gas. Left ovary measures 2.9 x 1.6 x 2.1 cm, volume 5.2 mL. Left ovarian 1.3 cm simple cyst is likely physiologic. There is no specific indication for additional imaging at this time. US/US pelvic and transvaginal IMPRESSION: 1. Endometrial thickness is 10 mm. 2. Prominent vasculature in the left pelvis may represent pelvic congestion. 3. No discrete fibroid appreciated.
== END 2023-09-16 10:38 | disposition home or self-care (01) ==
LOC: HO.US 10:37
PROVIDERS: PCP Registered Nurse; Visit Provider Advanced Practice Midwife
DX: D21.9 Benign neoplasm of connective and other soft tissue, unspecified (principal); N83.209 Unspecified ovarian cyst, unspecified side
CPT/HCPCS: 76830; 76856

== ENCOUNTER 2023-10-09 09:38 | Outpatient (AMB) | payer MEDICAID, SELFPAY ==
--- NOTE | 2023-10-09 09:39 | A.OFFVIS_ITS ---
Intake Visit Reasons: TV US follow up Allergies No Known Allergies [No Known Allergies*] Allergy (Verified 10/09/23 09:39) Medication List - Last Reconciled 10/09/23 by Adriana Wang CNM No Known Home Meds Is last menstrual period known: Yes Last menstrual period: 09/29/23 HPI HPI TV US follow up: Details: This is a tele visit to review patient's results. PFSH Medical History (Updated 10/09/23 @ 10:00 by Adriana Wang CNM) Severe headache Ovarian cyst Patient denies medical problems Family History Father Thyroid disease Mother Thyroid disease Social History Alcohol intake: never Patient Tobacco Use Status: Never used Tobacco Gender identity: Female Female Reproductive History Menstrual Age of Menarche: 11 Duration of menses: 3-5 days Date of last menstrual period: 09/29/23 control method: none Telehealth Telehealth Telehealth Platform: Telephone Location of provider rendering services: practice address Location of patient: address on file Patient Identification confirmed using: Name, : Yes Telehealth method: voice only Patient verbally consented to treatment: Yes Patient verbally consented to billing insurance company: Yes Patient informed of any privacy concerns related to visit: Yes Results Reviewed Results Reviewed: Patient: Quyen Schmitt MR#: [id number] : 1990 Acct:[id number] Age/Sex: 33 / F ADM Date: 09/16/23 Loc: HO. Attending Dr: Adriana Wang CNM Ordering Physician: Adriana Wang CNM Date of Service: 09/16/23 Procedure(s): US pelvic and transvaginal Accession Number(s): [id number] cc: Adriana Wang CNM; Katie De Paz~ EXAMINATION: US PELVIS CLINICAL INFORMATION: Ovarian cyst leiomyoma, last menstrual period 09/05/2023. COMPARISON: 10/09/2022. TECHNIQUE: Ultrasound of the pelvis is performed using both transabdominal and transvaginal transducers along with Doppler. Transvaginal imaging is performed due to inadequate visualization transabdominally. FINDINGS: The uterus is surgically absent and anteverted. The uterus measures 9.4 x 4.4 x 5.2 cm. Nabothian cysts in the cervix. Endometrial thickness is 10 mm. No significant free fluid. Prominent vasculature at the left pelvis may represent pelvic congestion. Right ovary measures 2.5 x 1.5 x 1.6 cm, volume 3.2 mL and is grossly unremarkable, although visualization is limited due to bowel gas. Left ovary measures 2.9 x 1.6 x 2.1 cm, volume 5.2 mL. Left ovarian 1.3 cm simple cyst is likely physiologic. There is no specific indication for additional imaging at this time. US/US pelvic and transvaginal IMPRESSION: 1. Endometrial thickness is 10 mm. 2. Prominent vasculature in the left pelvis may represent pelvic congestion. 3. No discrete fibroid appreciated. Dictated By: Judy Jackson MD Signed By: <Electronically signed by Judy Jackson MD in OV> 10/07/23 1055 DD/ 1116 TD/TT: Resin Shaver: Assessment & Plan Assessment & Plan (1) Ovarian cyst: Comment: hx of.... has some llq discomfort x 3 months, await u/s. 10/06 1 cm likely physiologic cyst., prominent left vasculature. Code(s): N83.209 - Unspecified ovarian cyst, unspecified side Category: Medical (2) Fibroids: Comment: hx of, though not seen on last u/s. u/s ordered will revi at october/--10/06 none seen Code(s): D21.9 - Benign neoplasm of connective and other soft tissue, unspecified Category: Medical Plan I reviewed the ultrasound findings in detail including the dictation her in the 1st line citing that the uterus is surgically absent but full details and measurements and position able to be noted so clearly a typo. Prominent left vasculature discussed and explained nothing actionable at this time. She does have some varicose veins. No fibroid seen. 1 cm left physiologic cyst. We will see patient at annual exam. Coding Level of Care Code Tele Est Pt Level 3 (39522) Diagnoses Ovarian cyst N83.209 Fibroids D21.9 Time Spent (min) 17 Comment 5 cr/7 speaking w pt/5 charting
== END 2023-10-09 10:56 | disposition home or self-care (01) ==
LOC: HO.HWSM 09:38
PROVIDERS: PCP Registered Nurse; Visit Provider Advanced Practice Midwife
DX: N83.209 Unspecified ovarian cyst, unspecified side (principal); D21.9 Benign neoplasm of connective and other soft tissue, unspecified
CPT/HCPCS: 99213

== ENCOUNTER → 2023-10-09 09:38 | Outpatient (BNVA) | payer MEDICAID, SELFPAY | PROVIDERS: PCP Registered Nurse; Visit Provider Advanced Practice Midwife ==

== ENCOUNTER 2023-11-10 09:34 | Outpatient (AMB) | payer MEDICAID, SELFPAY ==
[2023-11-10 09:35] VITALS: BP 100/62; BMI 24.7
--- NOTE | 2023-11-10 09:35 | A.OFFVIS_ITS ---
Vital Signs 11/10/23 09:35 Height 5 ft 1 in Weight 131 lb BMI 24.7 BP 100/62 Intake Visit Reasons: irregular menses Rn Care Manager Services: Rn Care Manager Present Information Interpreted: clinical only Breaker Engineer: Breaker Engineer Present Allergies No Known Allergies [No Known Allergies*] Allergy (Verified 11/10/23 09:45) Medication List - Last Reconciled 11/10/23 by Adriana Wang CNM No Known Home Meds Is last menstrual period known: Yes Last menstrual period: 11/08/23 (previous menses', 10/25/23) Do you need a note to return to daycare/school/sports/work: No HPI HPI irregular menses: Details: Patient is here for problem visit she had regular menses September 28 to then October 24 to that were regular then she started bleeding November 07 it did not start like a. It is heavy like a. Even currently she has accompanying left-sided pain that she is experienced before and that has been evaluated previously ovarian cysts and prominent pelvic vasculature happen seen she is not contraceptive thing as she is trying to get . She has been seen and evaluated and had follow-up after previous ultrasounds as recently as September 15.. She is slightly tender on the left side exam is inconclusive we will obtain stat HCG and stat ultrasound to rule out ectopic. [facility] Medical History (Updated 11/10/23 @ 12:24 by Adriana Wang CNM) Severe headache Ovarian cyst Patient denies medical problems Family History Father Thyroid disease Mother Thyroid disease Social History Alcohol intake: never Patient Tobacco Use Status: Never used Tobacco Gender identity: Female Female Reproductive History Menstrual Age of Menarche: 11 Duration of menses: 3-5 days Date of last menstrual period: 11/08/23 (previous menses', 10/25/23) control method: none Total pregnancies: 3 Full term: 2 Date of last pap smear: 10/19/20 (negative,2018 WNL) Physical Exam Vital Signs: Last Vital Signs BP 100/62 11/10/23 09:35 BMI result Body Mass Index 24.7 Other: Patient has menstrual like bleeding. Cervix appears pink healthy. There is possibly some fullness on the left side very slightly tender we will get ultrasound to further evaluate. External Female Exam: normal external appearance Speculum Exam - Vagina: normal appearance of the vagina Speculum Exam - Cervix: normal appearance of the cervix Bimanual exam- vagina & uterus: consistency normal Results AMB Test Urine AMB Test Urine Negative Last Edit by Patricia Duran CMA on 11/10/23 09:57 Results Reviewed Results Reviewed: Patient: Quyen Schmitt MR#: [id number] : 1990 Acct:[id number] Age/Sex: 33 / F ADM Date: 09/16/23 Loc: .US Attending Dr: Adriana Wang CNM Ordering Physician: Adriana Wang CNM Date of Service: 09/16/23 Procedure(s): US pelvic and transvaginal Accession Number(s): [id number] cc: Adriana Wang CNM; Katie De Paz [employer]~ EXAMINATION: US PELVIS CLINICAL INFORMATION: Ovarian cyst leiomyoma, last menstrual period 09/05/2023. COMPARISON: 10/09/2022. TECHNIQUE: Ultrasound of the pelvis is performed using both transabdominal and transvaginal transducers along with Doppler. Transvaginal imaging is performed due to inadequate visualization transabdominally. FINDINGS: The uterus is surgically absent and anteverted. The uterus measures 9.4 x 4.4 x 5.2 cm. Nabothian cysts in the cervix. Endometrial thickness is 10 mm. No significant free fluid. Prominent vasculature at the left pelvis may represent pelvic congestion. Right ovary measures 2.5 x 1.5 x 1.6 cm, volume 3.2 mL and is grossly unremarkable, although visualization is limited due to bowel gas. Left ovary measures 2.9 x 1.6 x 2.1 cm, volume 5.2 mL. Left ovarian 1.3 cm simple cyst is likely physiologic. There is no specific indication for additional imaging at this time. US/US pelvic and transvaginal IMPRESSION: 1. Endometrial thickness is 10 mm. 2. Prominent vasculature in the left pelvis may represent pelvic congestion. 3. No discrete fibroid appreciated. Dictated By: Judy Jackson MD Signed By: <Electronically signed by Judy Jackson MD in OV> 10/07/23 1055 DD/ 1116 Patient: Quyen Schmitt MR#: [id number] : 1990 Acct:[id number] Age/Sex: 32 / F ADM Date: 10/09/22 Loc: .ED Attending Dr: Ordering Physician: Lynette Riojas NP Date of Service: 10/09/22 Procedure(s): US pelvic and transvaginal Accession Number(s): [id number] cc: Lynette Riojas NP~ EXAM: Pelvic Ultrasound CLINICAL INDICATION: Left-sided pelvic pain. Rule out cyst versus torsion COMPARISON: Pelvic ultrasound 04/04/2022 TECHNIQUE: The pelvis was evaluated using transabdominal and transvaginal imaging. The patient was not amenable to endovaginal interrogation. Color Doppler imaging and spectral analysis of the bilateral ovaries was also performed. FINDINGS: The uterus measures 8.6 x 3.8 x 5.3 cm in longitudinal by AP by transverse dimension. The endometrial stripe is not thickened and measures 0.9 cm. Previously visualized uterine fibroids not discretely visualized on today's imaging. The left ovary measures approximately 3.1 x 2.1 x 1.9 cm and is normal. The right ovary measures approximately 3.1 x 2.1 x 2.3 cm and contains a suspected 1.1 cm cyst versus dominant follicle. Spectral analysis reveals normal arterial and venous waveforms in the bilateral ovaries. There are no abnormal adnexal masses. There is a small amount of free fluid in the pelvis, nonspecific but often times physiologic. US/US pelvic and transvaginal IMPRESSION: 1. Normal thickness endometrial stripe. 2. Normal arterial and venous waveforms of the bilateral ovaries. 3. Small amount of free pelvic fluid, nonspecific but often times physiologic. Dictated By: Terrance Knutson MD Signed By: <Electronically signed by Terrance Knutson MD in OV> 10/09/22 1041 DD/ 0948 TD/TT: Display Artist: Name: Jose Daniel MelissaQuyen Age/Sex: 30/F Attending: Alisson Urrutia CNM : 1990 Submitted by: Adriana Wang CNM Copies to: Alisson Urrutia CNM MR #: [id number] Status: DEP REF Collected: 10/18/20 Location: .LAB Received: 10/19/20 Interpretation Satisfactory for evaluation. Mild inflammation. Negative for intraepithelial lesion or malignancy. HPV mRNA E6/E7: NOT DETECTED This assay detects E6/E7 viral messenger RNA (mRNA) from 14 high-risk HPV types (16, 18, 31, 33, 35, 39, 45, 51, 52, 56, 58, 59, 66, 68) HPV testing performed by [facility], [place], [place]. See reference laboratory portion of the EMR for entire report. Clinical Information LMP: Unsure date (depo) Previous PAP test: 2018, wnl Material Received ThinPrep cervical Copies To Alisson Urrutia [address] [place], [place] [id number] Adriana Wang [address] [place] [address] Electronically Signed By: AMBER Rasmussen (ASCP) 10/22/20 1217 The Pap Test is a screening procedure with the inherent possibility of both false negative and false positive results. Results should be interpreted in the context of historic and current clinical findings. Reliability of the Pap Test is enhanced by performing the test on a regular repetitive basis. Patient: Jose Daniel Page 1 of 1 Assessment & Plan Assessment & Plan (1) Ovarian cyst: Comment: hx of.... has some llq discomfort x 3 months, await u/s. 10/06 1 cm likely physiologic cyst., prominent left vasculature.//11/10/2023 see notes. Code(s): N83.209 - Unspecified ovarian cyst, unspecified side Category: Medical (2) Pelvic pain: Comment: new onset, left sided w unscheduled bleeding 11/08/23.; often before menses, better than before, has been evaluated,,, Code(s): R10.2 - Pelvic and perineal pain Category: Medical (3) Irregular intermenstrual bleeding: Code(s): N92.1 - Excessive and frequent menstruation with irregular cycle Category: Medical Plan Patient is here for problem visit she had regular menses September 28 to then October 24 to that were regular then she started bleeding November 07 it did not start like a. It is heavy like a. Even currently she has accompanying left-sided pain that she is experienced before and that has been evaluated previously ovarian cysts and prominent pelvic vasculature happen seen she is not contraceptive thing as she is trying to get . She has been seen and evaluated and had follow-up after previous ultrasounds as recently as September 15.. She is slightly tender on the left side exam is inconclusive we will obtain stat HCG and stat ultrasound to rule out ectopic. Orders: Orders AMB HCG Urine Test Today Z32.02 - Encounter for test, result negative US pelvic and transvaginal Today N83.209 - Unspecified ovarian cyst, unspecified side, N92.1 - Excessive and frequent menstruation with irregular cycle, R10.2 - Pelvic and perineal pain HCG Quantitative Today N83.209 - Unspecified ovarian cyst, unspecified side, N92.1 - Excessive and frequent menstruation with irregular cycle, R10.2 - Pelvic and perineal pain Coding Level of Care Code Est Pt Level 3 (09110) Diagnoses Ovarian cyst N83.209 Pelvic pain R10.2 Irregular intermenstrual bleeding N92.1
== END 2023-11-10 10:49 | disposition home or self-care (01) ==
PROVIDERS: PCP Registered Nurse; Visit Provider Advanced Practice Midwife
DX: N83.209 Unspecified ovarian cyst, unspecified side (principal); R10.2 Pelvic and perineal pain; N92.1 Excessive and frequent menstruation with irregular cycle; Z32.02 Encounter for pregnancy test, result negative
CPT/HCPCS: 99213

== ENCOUNTER → 2023-11-10 09:34 | Outpatient (BNVA) | payer MEDICAID, SELFPAY | PROVIDERS: PCP Registered Nurse; Visit Provider Advanced Practice Midwife | DX: N83.209 Unspecified ovarian cyst, unspecified side (principal); R10.2 Pelvic and perineal pain; N92.1 Excessive and frequent menstruation with irregular cycle; Z32.02 Encounter for pregnancy test, result negative | CPT/HCPCS: 81025; 99212 ==

== ENCOUNTER 2023-11-11 14:50 | Outpatient (REF) | payer MEDICAID, SELFPAY ==
--- NOTE | ~2023-11-11 | US_ITS ---
EXAMINATION: US PELVIS CLINICAL INFORMATION: Irregular menses; the last menstrual period was on 10/25/2023. COMPARISON: None available. TECHNIQUE: Ultrasound of the pelvis is performed using both transabdominal and transvaginal transducers along with Doppler. Transvaginal imaging is performed due to inadequate visualization transabdominally. FINDINGS: Uterus: The uterus is anteverted and anteflexed. The uterus measures 8.6 x 3.8 x 4.6 cm. Nabothian cysts are seen within the cervix. The double wall endometrial thickness is 3 mm. The uterus is smooth in contour and has normal myometrial echogenicity. No visible fibroid. Adnexa: Both ovaries are visualized. There is normal color flow to the adnexa. There is no ovarian torsion. There is prominent left adnexal vasculature. There is a small amount of free fluid in the cul-de-sac. Right ovary measures 3.0 x 1.4 x 1.5 cm, volume 3.3 mL. Left ovary measures 5.5 x 5.0 x 4.9 cm, volume 73.4 mL. The left ovary contains a 4.2 x 4.2 x 4.4 cm simple, physiologic follicle. US/US pelvic and transvaginal IMPRESSION: 1. The left ovary contains a 4.4 cm benign, functional simple cyst. No imaging follow-up is recommended. 2. There is dilated left adnexal vasculature, which can be associated with pelvic congestion. 3. Nabothian cysts are seen within the cervix. 4. There is a small amount nonspecific free fluid within the cul-de-sac. Electronically signed by: Andrae Fulton MD 11/11/2023 09:15 PM EDT
[2023-11-11 15:17] LABS: HCG Quantitative < 2 mIU/mL
== END 2023-11-11 14:51 | disposition home or self-care (01) ==
LOC: HO.US 14:50
PROVIDERS: Absent Provider Advanced Practice Midwife; PCP Registered Nurse; Visit Provider Advanced Practice Midwife
DX: N92.1 Excessive and frequent menstruation with irregular cycle (principal); R10.2 Pelvic and perineal pain; N83.209 Unspecified ovarian cyst, unspecified side
CPT/HCPCS: 36415; 76830; 76856; 84702

== ENCOUNTER 2023-11-25 09:38 | Outpatient (AMB) | payer MEDICAID, SELFPAY ==
[2023-11-25 09:51] VITALS: BP 100/60; BMI 24.7
--- NOTE | 2023-11-25 09:51 | A.OFFVIS_ITS ---
Vital Signs 11/25/23 09:51 Height 5 ft 1 in Weight 131 lb BMI 24.7 BP 100/60 Intake Visit Reasons: Ultrasound follow up Security Agent Required: No Information Interpreted: clinical only Box Toe Flanger Stitchdowns: Box Toe Flanger Stitchdowns Present Allergies No Known Allergies [No Known Allergies*] Allergy (Verified 11/25/23 09:52) Medication List - Last Reconciled 11/25/23 by Adriana Wang CNM No Known Home Meds Is last menstrual period known: Yes Last menstrual period: 11/08/23 [facility] HPI Ultrasound follow up: Details: Patient is here for ultrasound follow-up this is a follow-up ultrasound for 1 done previously that showed a cyst and recommended follow-up for she has had prominent vasculature seen on both ultrasounds and also in previous ultrasounds. Patient is not contraceptive thing she is open to she has a 12-year-old and a 13-year-old daughter. She had normal deliveries in [place] and no problems. She lives in [place]. She has been keeping track of her periods but she did report 2 periods in October. She reports her last periods as the following September 04 to September 08, September 28 to , October 24 to , and November 07 for 5 days. She had the ultrasound done on the in the ultrasound it cites her last menstrual period as being October 24.. I reviewed both ultrasounds with her I reviewed her cycles detail I reviewed her desire for and her symptoms she may be having of ovulation I reviewed prominent pelvic vasculature and that if it presents a major problem in her life she would need to seek special marlene gynecologic care but in general it simply maybe just how she is made. Discussed simple ways to deal with discomforts from ovulation and other discomforts using heat and she can not take ibuprofen if she desires. Discussed that we do not have a birthing center and she would be better served by initiating full care from the very start at the institution of her choice where she can receive follow through care from throughout the she would want to go to [facility] as she is accompanied 3 friends and family members there. I recommend that she start a multivitamin with folic acid in it and continue to eat well. She has appointments set up for annual exams and if she has any further questions about her cycles she can review them then as well. [facility] Medical History Severe headache Ovarian cyst Patient denies medical problems Family History Father Thyroid disease Mother Thyroid disease Social History Alcohol intake: never Patient Tobacco Use Status: Never used Tobacco Gender identity: Female Female Reproductive History Menstrual Age of Menarche: 11 Duration of menses: 3-5 days Date of last menstrual period: 11/08/23 control method: none Total pregnancies: 3 Full term: 2 Date of last pap smear: 10/19/20 (neg.) Physical Exam Vital Signs: Last Vital Signs BP 100/60 11/25/23 09:51 BMI result Body Mass Index 24.7 Results Reviewed Results Reviewed: Patient: Quyen Schmitt MR#: [id number] : 1990 Acct:[id number] Age/Sex: 33 / F ADM Date: 09/16/23 Loc: HO.US Attending Dr: Adriana Wang CNM Ordering Physician: Adriana Wang CNM Date of Service: 09/16/23 Procedure(s): US pelvic and transvaginal Accession Number(s): [id number] cc: Adriana Wang CNM; Katie De Paz~ EXAMINATION: US PELVIS CLINICAL INFORMATION: Ovarian cyst leiomyoma, last menstrual period 09/05/2023. COMPARISON: 10/09/2022. TECHNIQUE: Ultrasound of the pelvis is performed using both transabdominal and transvaginal transducers along with Doppler. Transvaginal imaging is performed due to inadequate visualization transabdominally. FINDINGS: The uterus is surgically absent and anteverted. The uterus measures 9.4 x 4.4 x 5.2 cm. Nabothian cysts in the cervix. Endometrial thickness is 10 mm. No significant free fluid. Prominent vasculature at the left pelvis may represent pelvic congestion. Right ovary measures 2.5 x 1.5 x 1.6 cm, volume 3.2 mL and is grossly unremarkable, although visualization is limited due to bowel gas. Left ovary measures 2.9 x 1.6 x 2.1 cm, volume 5.2 mL. Left ovarian 1.3 cm simple cyst is likely physiologic. There is no specific indication for additional imaging at this time. US/US pelvic and transvaginal IMPRESSION: 1. Endometrial thickness is 10 mm. 2. Prominent vasculature in the left pelvis may represent pelvic congestion. 3. No discrete fibroid appreciated. Dictated By: Judy Jackson MD Signed By: <Electronically signed by Judy Jackson MD in OV> 10/07/23 1055 DD/ 1116 TD/TT: Erp Specialist: Patient: Quyen Schmitt MR#: [id number] : 1990 Acct:[id number] Age/Sex: 33 / F ADM Date: 11/11/23 Loc: HO.US Attending Dr: Adriana Wang CNM Ordering Physician: Adriana Wang CNM Date of Service: 11/11/23 Procedure(s): US pelvic and transvaginal Accession Number(s): [id number] cc: Adriana Wang CNM; Katie De PazP~ EXAMINATION: US PELVIS CLINICAL INFORMATION: Irregular menses; the last menstrual period was on 10/25/2023. COMPARISON: None available. TECHNIQUE: Ultrasound of the pelvis is performed using both transabdominal and transvaginal transducers along with Doppler. Transvaginal imaging is performed due to inadequate visualization transabdominally. FINDINGS: Uterus: The uterus is anteverted and anteflexed. The uterus measures 8.6 x 3.8 x 4.6 cm. Nabothian cysts are seen within the cervix. The double wall endometrial thickness is 3 mm. The uterus is smooth in contour and has normal myometrial echogenicity. No visible fibroid. Adnexa: Both ovaries are visualized. There is normal color flow to the adnexa. There is no ovarian torsion. There is prominent left adnexal vasculature. There is a small amount of free fluid in the cul-de-sac. Right ovary measures 3.0 x 1.4 x 1.5 cm, volume 3.3 mL. Left ovary measures 5.5 x 5.0 x 4.9 cm, volume 73.4 mL. The left ovary contains a 4.2 x 4.2 x 4.4 cm simple, physiologic follicle. US/US pelvic and transvaginal IMPRESSION: 1. The left ovary contains a 4.4 cm benign, functional simple cyst. No imaging follow-up is recommended. 2. There is dilated left adnexal vasculature, which can be associated with pelvic congestion. 3. Nabothian cysts are seen within the cervix. 4. There is a small amount nonspecific free fluid within the cul-de-sac. Electronically signed by: Andrae Fulton MD 11/11/2023 09:15 PM EDT Dictated By: Andrae Fulton MD Signed By: <Electronically signed by Andrae Fulton MD in OV> 11/11/23 2115 DD/ 1458 TD/TT: 11/11/23 1510 Erp Specialist: IRWIN Assessment & Plan Assessment & Plan (1) Irregular intermenstrual bleeding: Code(s): N92.1 - Excessive and frequent menstruation with irregular cycle Category: Medical (2) Ovarian cyst: Comment: hx of.... has some llq discomfort x 3 months, await u/s. 10/06 1 cm likely physiologic cyst., prominent left vasculature.///11/10/2023 see notes. Code(s): N83.209 - Unspecified ovarian cyst, unspecified side Category: Medical (3) Patient desires : Code(s): Z31.9 - Encounter for procreative management, unspecified Category: Medical Plan Patient is here for ultrasound follow-up this is a follow-up ultrasound for 1 done previously that showed a cyst and recommended follow-up for she has had prominent vasculature seen on both ultrasounds and also in previous ultrasounds. Patient is not contraceptive thing she is open to she has a 12-year-old and a 13-year-old daughter. She had normal deliveries in [place] and no problems. She lives in [place]. She has been keeping track of her periods but she did report 2 periods in October. She reports her last periods as the following September 04 to September 08, September 28 to , October 24 to , and November 07 for 5 days. She had the ultrasound done on the in the [facility] it cites her last menstrual period as being October 24.. I reviewed both ultrasounds with her I reviewed her cycles detail I reviewed her desire for and her symptoms she may be having of ovulation I reviewed prominent pelvic vasculature and that if it presents a major problem in her life she would need to seek special marlene gynecologic care but in general it simply maybe just how she is made. Discussed simple ways to deal with discomforts from ovulation and other discomforts using heat and she can not take ibuprofen if she desires. Discussed that we do not have a birthing center and she would be better served by initiating full care from the very start at the institution of her choice where she can receive follow through care from throughout the she would want to go to [facility] as she is accompanied 3 friends and family members there. I recommend that she start a multivitamin with folic acid in it and continue to eat well. She has appointments set up for annual exams and if she has any further questions about her cycles she can review them then as well. Coding Level of Care Code Est Pt Level 3 (93178) Diagnoses Irregular intermenstrual bleeding N92.1 Ovarian cyst N83.209 Patient desires Z31.9
== END 2023-11-25 11:06 | disposition home or self-care (01) ==
PROVIDERS: PCP Registered Nurse; Visit Provider Advanced Practice Midwife
DX: N92.1 Excessive and frequent menstruation with irregular cycle (principal); N83.209 Unspecified ovarian cyst, unspecified side; Z31.9 Encounter for procreative management, unspecified
CPT/HCPCS: 99213

== ENCOUNTER → 2023-11-25 09:38 | Outpatient (BNVA) | payer MEDICAID, SELFPAY | PROVIDERS: PCP Registered Nurse; Visit Provider Advanced Practice Midwife | DX: N92.1 Excessive and frequent menstruation with irregular cycle (principal); N83.209 Unspecified ovarian cyst, unspecified side; Z31.9 Encounter for procreative management, unspecified | CPT/HCPCS: 99212 ==

== ENCOUNTER 2023-12-25 09:26 | Outpatient (REF) | payer MEDICAID, SELFPAY ==
--- NOTE | ~2023-12-25 | XR_ITS ---
EXAMINATION: XR ABDOMEN CLINICAL INFORMATION: Pain COMPARISON: None TECHNIQUE: Frontal view. 2 views upper and lower abdomen and pelvis FINDINGS: Included lung bases are clear. There is increased amount of stool projecting over the distribution of the colon raising suspicion for constipation. There is no evidence of bowel obstruction, however. There is no evidence of abnormal calcifications. There is no acute skeletal structure changes. There is no evidence of small-bowel obstruction. There is no free air in the abdomen. XR/XR KUB IMPRESSION: Increased amount of stool in the colon suggesting constipation. Please correlate with clinical presentation. Electronically signed by: Juan José Colon MD 12/25/2023 04:17 PM EDT
== END 2023-12-25 09:27 | disposition home or self-care (01) ==
LOC: HO.HHCX 09:26
PROVIDERS: Visit Provider Family Medicine
DX: R10.84 Generalized abdominal pain (principal)
CPT/HCPCS: 74018

== ENCOUNTER 2024-01-03 12:51 | Emergency (ER) | payer MEDICAID, SELFPAY ==
--- NOTE | ~2024-01-03 | XR_ITS ---
EXAMINATION: XR ABDOMEN KUB CLINICAL INDICATION: Constipation. COMPARISON: Abdominal radiograph 12/25/2023. TECHNIQUE: AP view of the abdomen. FINDINGS: Nonobstructive bowel gas pattern. Moderate degree of colonic stool burden, no significantly changed compared to recent prior. No unusual soft tissue calcifications. Lung bases are clear. No acute osseous findings. XR/XR KUB IMPRESSION: 1. Nonobstructive bowel gas pattern. 2. Moderate colonic stool burden. Electronically signed by: Sheron Kemp MD 01/03/2024 03:30 PM EDT
[2024-01-03 12:58] VITALS: BP 105/63; PULSE 69; RESP 16; TEMP 36.8; O2SAT 98; BMI 24.4
--- NOTE | 2024-01-03 12:58 | ED_ITS ---
HPI - General Adult General Chief complaint: Abdominal Pain Stated complaint: Constipated/lower back pain Time Seen by Provider: 01/03/24 13:25 Source: patient and RN notes reviewed Mode of arrival: ambulatory Limitations: no limitations History of Present Illness ED Provider: Megan Mora PA-C HPI narrative: This is a 33-year-old female, with a history of chronic pelvic pain, who presents emergency department with complaints of ongoing constipation x1 week. Patient states that she was initially seen on December 24 for the [facility] as she is noticing some increased constipation. She states that she used to have regular bowel movements however states that she now has not had frequent bowel movements. She states that the urgent care prescribed her gavilax powder, docusate, and hydrocortisone cream. She states that she has only been using the gavilax powder as she was instructed to only use the docusate when she was having bowel movements. She states that on ThursdayDecember 27. Patient denies any fevers, chills, chest pain, shortness of breath. She does report pelvic pain which is her typical pelvic pain that she has been experiencing. She denies any nausea or vomiting. Denies any urinary symptoms. Denies any surgeries. No night sweats. She states that she has lost 4 lb over the course of several months. She also reports that over the last 2 weeks she has noticed lower back pain. She states that the low back pain is constant and worsens with prolonged periods of time sitting. Denies any falls, heavy lifting or any other trauma to her back. She states that the pain in her back goes into her buttocks. Denies any saddle anesthesia. No urinary or bowel incontinence. She states that her diet consists of mostly protein and carbohydrates, reports that she does not typically eat a lot of fruit or veggies. No other complaints or concerns at this time. complaint: Constipation Onset (ago): week(s) Radiation: non-radiation Severity: moderate Quality: aching Relieving factors: none Exacerbating factors: none Related Data Previous Rx's ?Medication ?Instructions ?Recorded docusate calcium 240 mg capsule 240 mg PO DAILY #30 caps 01/03/24 sennosides 8.6 mg tablet (Senna 17.2 mg (2 x 8.6 mg) PO DAILY 2 01/03/24 Lax) weeks #28 tabs Allergies Allergy/AdvReac Type Severity Reaction Status Date / Time No Known Allergies Allergy Verified 01/03/24 12:59 [No Known Allergies*] Review of Systems 2 Review of Systems: Yes all other systems are reviewed and are negative Constitutional: Constitutional: Reports as per [facility] Past Medical History Attestation statement: The following information was validated with the patient. Medical History Severe headache Ovarian cyst Patient denies medical problems Family History Family History Father Thyroid disease Mother Thyroid disease Social History Social History Alcohol intake: never Patient Tobacco Use Status: Never used Tobacco Advance Directives: No Advance Directives Information Provided: Yes Gender identity: Female Physical Exam ED Vital Signs: Vital Signs - 24 hr 01/03/24 12:58 01/03/24 14:30 Temperature 98.2 F 98.1 F Pulse Rate 69 66 Respiratory Rate 16 18 Blood Pressure 105/63 102/62 Pulse Oximetry 98 99 Oxygen Delivery Method Room Air Room Air BMI result Body Mass Index 24.4 Const General: cooperative, comfortable and no acute distress Orientation/consciousness: patient oriented x3 Limitations: no limitations HENGA Head: Yes normal to inspection, Yes normocephalic and Yes atraumatic Ears: hearing grossly normal bilaterally General nose exam: Normal external nose present Face and sinus: Yes normal facial exam Mouth: Normal oral and palatal mucosa present, oropharynx normal and moist mucous membranes Throat: Yes posterior oropharynx normal Eyes General: appearance normal, both eyes and all related structures Eyelids: Yes eyelids normal Conjunctivae: conjunctivae normal Sclerae: sclerae normal Pupils: Equal, round and reactive pupils present EOM: EOMs intact bilaterally Neck Neck: Yes normal visual inspection, Yes full ROM and Yes no lymphadenopathy Lymphatic: no lymphadenopathy noted Chest Chest palpation & inspection: normal inspection of the chest Resp Effort & Inspection: normal respiratory effort and able to speak in complete sentences Auscultation: clear to auscultation bilaterally, no crackles, no rales, no rhonchi and no wheezes Cardio Rate: regular rate Rhythm: regular rhythm Heart sounds: S1 normal heart sound present and S2 normal heart sound present GI Other: Abdomen is soft, with no significant tenderness to palpation. Patient has mild suprapubic tenderness on examination which patient states is chronic for her no rebound or guarding. Hypoactive bowel sounds present in all 4 quadrants. External rectal examination with no external hemorrhoids noted. Inspection: Yes normal to inspection General: Yes no CVA tenderness Back/Spine/Pelvis Back: no CVA tenderness Skin General skin exam: no rashes or lesions noted Trauma: no lacerations or abrasions Wounds: no wounds Neuro General: patient oriented x3 and moves all extremities Cranial nerves: Yes Equal, round and reactive pupils present Extrem General: Yes normal to inspection Right upper extremity: normal to inspection Left upper extremity: normal to inspection Right lower extremity: normal to inspection Left lower extremity: normal to inspection Course Course Course Narrative: This is a Rapid Medical Examination (RME) performed by Elizabeth Delgado PA-C in triage. Full HPI, ROS, assessment and treatment plan per primary provider in the Main ED. 33 yo female here for eval of constipation x1.5 weeks. seen at on 12/25/23 w/ KUB showing increased stool in colon. discharged w/ hydrocortisone cream for hemorrhoids, laxative and stool softener. has not had BM since 12/28/23. also endorses left low back pain w/ radiation into her left thigh, burning in character. denies dysuria, hematuria. no injury/ trauma. Plan: labs, repeat KUB Reevaluation(s) Reevaluation #1: KUB x-ray revealing nonobstructive gas pattern, with moderate colonic stool burden. Not significantly changed compared to previous. Discussed overall workup with patient. She is well-appearing, under no acute distress. Given no change in KUB, will treat with senna and docusate as patient has not had much relief with MiraLax. Given strict return precautions. Also given change in stool habits, given referral to GI specialist for further management of her symptoms. Patient understands and agrees with overall plan. She will follow-up with her PCP and GI specialist next week. Given strict return precautions. Patient stable for discharge. Time: 15:43 Medical Decision Making Medical Decision Making MDM Narrative: This is a 33-year-old female who presents emergency department with complaints of constipation, low back pain. On arrival, vital signs within normal limits. She is speaking full sentences under no acute distress. She has tried laxatives without much relief. She was prescribed docusate which she has not been taking as she was told not to take until she had a bowel movement. On arrival, vital signs within normal limits. She is speaking in full sentences under no acute distress. She also reports low back pain, she has tenderness palpation along her bilateral SI joints. She is ambulatory with steady gait. 5/5 strength in lower extremities. Distal sensation circulation intact. Differential Diagnosis Differential Diagnoses: The differential diagnosis associated with the presentation includes Constipation, small-bowel obstruction, UTI Lab Data MDM Lab Attestation statement: I reviewed the patient's lab results. No leukocytosis, stable H&H, chemistry within normal limits. Urine with moderate leuk esterases, and wbc's however appears to be contaminated with 3+ bacteria. Urine negative. 01/03/24 13:06 01/03/24 13:06 Labs: Lab Results 01/03/24 01/03/24 Range/Units 13:06 14:35 WBC 9.4 (4.8-10.8) X10*3/uL RBC 4.19 L (4.20-5.50) X10*6/uL Hgb 12.8 (12.0-16.0) g/dl Hct 38.0 (37.0-47.0) % MCV 90.7 (80.0-98.0) fL MCH 30.5 (27.0-33.0) pg MCHC 33.7 (31.0-35.0) g/dl RDW 12.2 (11.0-16.0) % Plt Count 266 (160-400) X10*3/uL MPV 10.3 (9.4-12.3) fL Immature Gran % (Auto) 0.2 (0.0-0.4) % Neut % (Auto) 71.4 (45-73) % Lymph % (Auto) 19.8 L (20-40) % [place] % (Auto) 4.6 (2-11) % Eos % (Auto) 3.7 (0-4) % Baso % (Auto) 0.3 (0-2) % Lymph # (Auto) 1.9 (1.2-4.9) X10*3/uL [place] # (Auto) 0.4 (0.1-1.2) X10*3/uL Eos # (Auto) 0.4 (0.0-0.4) X10*3/uL Baso # (Auto) 0.0 (0.0-0.2) X10*3/uL Abs Immat Gran (auto) 0.02 (0.00-0.03) X10*3/uL Absolute Neuts (auto) 6.7 (2.0-8.3) x10*3/uL Absolute Nucleated RBC 0.000 (0.0-0.012) X10*3/uL Nucleated RBC % (auto) 0.0 (0.0-0.2) /100WBC Sodium 139 (135-145) mmol/L Potassium 4.0 (3.3-5.1) mmol/L Chloride 106 (96-108) mmol/L Carbon Dioxide 27 (22-29) mmol/L Anion Gap 10 L (12-20) BUN 7 L (9-16) mg/dL Creatinine 0.89 (0.5-1.4) mg/dL Estim Creat Clear Calc 73.9 Estimated GFR > 60 Random Glucose 94 (60-115) mg/dL Calcium 9.2 (8.4-10.2) mg/dL Total Bilirubin 0.5 (0.0-1.0) mg/dL AST 14 (5-31) U/L ALT 8 (0-31) U/L Alkaline Phosphatase 61 (39-117) U/L Total Protein 7.2 (6.5-8.0) g/dL Albumin 4.1 (3.5-5.0) g/dL Beta HCG, Quant < 2 mIU/mL Urine Color Yellow Urine Appearance Cloudy Urine pH 5.5 (5.0-9.0) Ur Specific [place] 1.025 (1.005-1.025) Urine Protein Negative (Neg-Trace) mg/dL Urine Glucose (UA) Negative (Negative) mg/dL Urine Ketones Negative (Negative) mg/dL Urine Blood Negative (Negative) Urine Nitrite Negative (Negative) Ur Leukocyte Esterase Moderate (2+) H (Negative) Urine RBC 0-2 (0-2) /HPF Urine WBC 21-50 H (0-5) /HPF Ur Squamous Epith Cells >20 (0-2) /HPF Urine Bacteria 3+ (None Seen) Hyaline Casts 3-5 (0-2) /LPF Urine Test NEGATIVE (NEGATIVE) Radiology Impression Discussion of test interpretation with radiology: I have reviewed the radiologist's reading. External Record Review External record reviewed: Inpatient record, Office record, Outpatient record, Prior outpatient labs, Prior outpatient radiology, Primary care record and Outside ED record Discharge Plan Discharge Clinical Impression: Constipation, Back pain Patient Disposition: Home, Self-Care Instructions: Constipation (ED), High Fiber Diet (ED), Back Pain (ED) Additional Instructions: You were seen in the emergency department due to ongoing constipation and low back pain. Your lab work was reassuring. I am prescribing you to different types of medications to help. Please take prescribed medications as directed. Drink plenty of fluids, increased fiber in your diet (eat more fruits and veggies, and see attached documentation for other ideas to increase fiber), and exercise can also help with this. If you start to develop diarrhea, you can discontinue the medications I prescribed to you. You need to follow-up with your primary care physician. Please also follow-up with the GI specialist as you have had a new change in bowel habits any to be further worked up. If any new or worsening symptoms occur including but not limited to fevers, chills, severe abdominal pain, vomiting, chest pain, shortness of breath, please seek emergent care. Prescriptions: New sennosides [Senna Lax] 8.6 mg tablet 17.2 mg PO DAILY 14 Days Qty: 28 0RF docusate calcium 240 mg capsule 240 mg PO DAILY Qty: 30 0RF Referrals: [facility] [Provider Group] Print Language: Slovak
[2024-01-03 13:11] LABS: MANUAL DIFF FLAG NO
[2024-01-03 13:13] LABS: Basophils Percent Auto 0.3 % (0-2); Eosinophils Absolute Auto 0.4 X10*3/uL (0.0-0.4); Eosinophils Percent Auto 3.7 % (0-4); Hemoglobin 12.8 g/dl (12.0-16.0); Imm Gran Abs Auto 0.02 X10*3/uL (0.00-0.03); Imm Gran Pct Auto 0.2 % (0.0-0.4); Lymphocytes Absolute Auto 1.9 X10*3/uL (1.2-4.9); Lymphocytes Percent Auto 19.8 % (20-40); Mean Corpuscular HGB Conc 33.7 g/dl (31.0-35.0); Mean Corpuscular Hemoglobin 30.5 pg (27.0-33.0); Mean Corpuscular Volume 90.7 fL (80.0-98.0); Mean Platelet Volume 10.3 fL (9.4-12.3); Monocytes Absolute Auto 0.4 X10*3/uL (0.1-1.2); Monocytes Percent Auto 4.6 % (2-11); Neutrophils Absolute Auto 6.7 x10*3/uL (2.0-8.3); Neutrophils Percent Auto 71.4 % (45-73); Platelet Count 266 X10*3/uL (160-400); Red Blood Count 4.19 X10*6/uL (4.20-5.50); Red Cell Distribution Width 12.2 % (11.0-16.0); White Blood Count 9.4 X10*3/uL (4.8-10.8)
[2024-01-03 13:32] LABS: Alanine Aminotransferase 8 U/L (0-31); Albumin Level 4.1 g/dL (3.5-5.0); Alkaline Phosphatase 61 U/L (39-117); Anion Gap 10 (12-20); Aspartate Amino Transferase 14 U/L (5-31); Bilirubin Total 0.5 mg/dL (0.0-1.0); Blood Urea Nitrogen 7 mg/dL (9-16); Calcium 9.2 mg/dL (8.4-10.2); Carbon Dioxide 27 mmol/L (22-29); Chloride 106 mmol/L (96-108); Creatinine Clr Calc Pharmacy 73.9; Estimated Glomerular Filt Rate > 60; Glucose Random 94 mg/dL (60-115); Sodium 139 mmol/L (135-145); Total Protein 7.2 g/dL (6.5-8.0)
[2024-01-03 13:38] LABS: HCG Quantitative < 2 mIU/mL
[2024-01-03 14:30] VITALS: BP 102/62; PULSE 66; RESP 18; TEMP 36.7; O2SAT 99
[2024-01-03 14:42] LABS: Appearance Urine Cloudy; Color Urine Yellow; Glucose Urine UA Negative (Negative); Leukocyte Esterase Urine Moderate (2+) (Negative); Nitrite Urine Negative (Negative); PH 5.5 (5.0-9.0); Specific Gravity - Urine 1.025 (1.005-1.025); UMIC TRIGGER UACC YES; Urine Blood Negative (Negative); Urine Ketones Negative (Negative); Urine Protein Negative (Neg-Trace)
[2024-01-03 14:44] LABS: UPreg QC Valid YES; Urine Pregnancy NEGATIVE (NEGATIVE)
[2024-01-03 14:52] LABS: Bacteria Urine 3+ (None Seen); RBC Urine 0-2 /HPF (0-2); Squamous Epithelial Cell Urine >20 /HPF (0-2); UACC Culture Trigger YES; WBC Urine 21-50 /HPF (0-5)
[2024-01-03 16:06] VITALS: BP 103/65; PULSE 68; RESP 18; TEMP 36.7; O2SAT 99
[2024-01-03 16:27] VITALS: BP 103/65; PULSE 68; RESP 18; TEMP 36.7; O2SAT 99
== END 2024-01-03 16:28 | disposition home or self-care (01) ==
PROVIDERS: Physician Assistant Medical; Emergency Provider Emergency Medicine
DX: K59.00 Constipation, unspecified (principal); R10.2 Pelvic and perineal pain; M54.50 Low back pain, unspecified
CPT/HCPCS: 36415; 74018; 80053; 81001; 81025; 84702; 85025; 87086; 99283

== ENCOUNTER 2024-01-06 17:40 | Outpatient (REF) | payer MEDICAID, SELFPAY | END 2024-01-06 17:41 | disposition home or self-care (01) | LOC: HO.HHCLNP 17:40 | PROVIDERS: Visit Provider Nurse Practitioner | DX: K62.9 Disease of anus and rectum, unspecified (principal) | CPT/HCPCS: 36415; 87255 ==

== ENCOUNTER 2024-01-12 17:56 | Outpatient (REF) | payer MEDICAID, SELFPAY ==
[2024-01-12 18:10] LABS: Appearance Urine Turbid; Color Urine Yellow; Glucose Urine UA Negative (Negative); Leukocyte Esterase Urine Trace (Negative); Nitrite Urine Negative (Negative); PH 5.5 (5.0-9.0); Specific Gravity - Urine 1.025 (1.005-1.025); UMIC TRIGGER UACC YES; Urine Blood Negative (Negative); Urine Ketones Negative (Negative); Urine Protein Negative (Neg-Trace)
[2024-01-12 20:26] LABS: Bacteria Urine None Seen (None Seen); Hyaline Casts Urine 0-2 /LPF (0-2); Other Crystals Urine Present; RBC Urine 0-2 /HPF (0-2); WBC Urine 0-5 /HPF (0-5)
[2024-01-13 13:29] LABS: Bacterial Vaginosis PCR NEGATIVE (Negative); Candida Group PCR NOT DETECTED (Not Detect); Candida glab krusei PCR NOT DETECTED (Not Detect); Trichomonas vaginalis PCR NOT DETECTED (Not Detect)
== END 2024-01-12 17:57 | disposition home or self-care (01) ==
LOC: HO.LNP 17:56
PROVIDERS: Visit Provider Student in an Organized Health Care Education/Training Program
DX: N93.9 Abnormal uterine and vaginal bleeding, unspecified (principal)
CPT/HCPCS: 0352U; 81001

== ENCOUNTER 2024-01-15 09:40 | Outpatient (REF) | payer MEDICAID, SELFPAY | END 2024-01-15 09:41 | disposition home or self-care (01) | LOC: HO.HMGCX 09:40 | PROVIDERS: PCP Nurse Practitioner Family; Visit Provider Student in an Organized Health Care Education/Training Program | DX: N39.9 Disorder of urinary system, unspecified (principal) | CPT/HCPCS: 76857 ==

== ENCOUNTER 2024-02-03 09:44 | Outpatient (REF) | payer MEDICAID, SELFPAY ==
[2024-02-04 07:49] LABS: CT PCR NOT DETECTED (Not Detect.); NG PCR NOT DETECTED (Not Detect.)
[2024-02-04 10:19] LABS: HPV 16,18/45 See PAP report
[2024-02-04 11:44] LABS: Bacterial Vaginosis PCR NEGATIVE (Negative); Candida Group PCR NOT DETECTED (Not Detect); Candida glab krusei PCR NOT DETECTED (Not Detect); Trichomonas vaginalis PCR NOT DETECTED (Not Detect)
== END 2024-02-03 09:45 | disposition home or self-care (01) ==
LOC: HO.LNP 09:44
PROVIDERS: PCP Registered Nurse; Visit Provider Advanced Practice Midwife
DX: Z01.419 Encounter for gynecological examination (general) (routine) without abnormal findings (principal); Z12.4 Encounter for screening for malignant neoplasm of cervix; Z11.3 Encounter for screening for infections with a predominantly sexual mode of transmission; A60.00 Herpesviral infection of urogenital system, unspecified; K59.00 Constipation, unspecified; R10.2 Pelvic and perineal pain; Z87.42 Personal history of other diseases of the female genital tract
CPT/HCPCS: 0352U; 87491; 87591; 87624; 88175; 99395

== ENCOUNTER 2024-02-03 09:44 | Outpatient (AMB) | payer MEDICAID, SELFPAY ==
[2024-02-03 09:56] VITALS: BP 104/60; BMI 23.6
--- NOTE | 2024-02-03 09:56 | MHC.OFFVIS ---
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 She had a lot to talk about today. Currently her periods are regular and coming exactly as she expects and she is keeping good track now she and her partner using condoms she is not interested in any other method of control at this time she had had a previous history of irregular menses and amenorrhea following Depo-Provera use and also periods of pelvic pain and ovarian cysts but all of those issues are not at play today. 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 Patient was given Valtrex for 5 days 1000 mg at that time and she is also given medication for a recurrence. She did have teaching with that provider about the nature of herpes but she wants to discuss it more today and is concerned about it and we did in fact discuss it in great detail today this visit. For her constipation she was in the end given either MiraLax or Metamucil as well as senna and prune juice pills she said the prune juice did not work but the thing that finally worked for her was milk of magnesia she still does not know what caused her constipation at that time and was very painful and upsetting. But she is regular now and having about every other day usually in the evening after dinner. She has had no further outbreaks herpes in fact the lesion was a single lesion only and she said it was like a pimple. [facility] Medical History Severe headache Ovarian cyst Patient denies medical problems Family History Father Thyroid disease Mother Thyroid disease Social History Alcohol intake: never Patient Tobacco Use Status: Never used Tobacco Patient : No Gender identity: Female Female Reproductive History Menstrual Age of Menarche: 11 Date of last menstrual period: 01/22/24 control method: none and other (Condom) Total pregnancies: 3 Full term: 2 Number of Living Children: 2 Ab spontaneous: 1 Date of last pap smear: 01/28/23 History of abnormal pap smear: No History of STI: No History of abnormal mammogram: No Physical Exam Vital Signs: Last Vital Signs BP 104/60 02/03/24 09:56 BMI result Body Mass Index 23.6 Const General: healthy appearing, comfortable, no acute distress, well developed and alert Nutritional Appearance: average body habitus Orientation/consciousness: patient oriented x3 Limitations: no limitations HEENT Head: Yes normocephalic Neck Neck: Yes normal visual inspection Chest Chest palpation & inspection: normal inspection of the chest Breast/axilla inspection: normal inspection of the breasts and normal inspection of the axillae Breast/axilla palpation: normal palpation of the breasts and normal palpation of the axillae Resp Effort & Inspection: normal respiratory effort GI Inspection: Yes normal to inspection, No Abdominal wall edema and No distended Palpation (GI): Soft to palpation and nontender Other: Thorough external and internal exam done there is no suspicious lesion that could be suspicious for HSV currently indeed I do not see any scar a recent lesion either. External vulva within normal limits vagina is pink and moist cervix is multiparous pink moist smooth healthy appearing normal appearing mucus possibly follicular phase. Cervix is long close thick mobile nontender uterus is nontender adnexa nontender nonenlarged good tone with Kegel. General: Yes bladder normal to palpation External Female Exam: normal external appearance and normal appearance of the urethra Speculum Exam - Vagina: normal appearance of the vagina, normal palpation and normal vaginal discharge Speculum Exam - Cervix: normal appearance of the cervix, normal palpation and nontender Bimanual exam- vagina & uterus: normal bimanual exam, normal palpation, uterine size normal, bladder normal to palpation, consistency normal, normal palpation, uterine mobility normal, uterine shape normal, No Cervical tenderness present, non-tender and no cervical motion tenderness Bimanual Exam- Adnexa, other: normal adnexae, no masses, normal and No adnexal tenderness Neuro General: patient oriented x3 Results Reviewed Results Reviewed: Name: Quyen Schmitt Age/Sex: 30/F Attending: Alisson Urrutia CNM : 1990 Submitted by: Adriana Wang CNM Copies to: Alisson Urrutia CNM MR #: [id number] Status: DEP REF Collected: 10/18/20 Location: .LAB Received: 10/19/20 Interpretation Satisfactory for evaluation. Mild inflammation. Negative for intraepithelial lesion or malignancy. HPV mRNA E6/E7: NOT DETECTED This assay detects E6/E7 viral messenger RNA (mRNA) from 14 high-risk HPV types (16, 18, 31, 33, 35, 39, 45, 51, 52, 56, 58, 59, 66, 68) HPV testing performed by [facility], [place], [place]. See reference laboratory portion of the EMR for entire report. Clinical Information LMP: Unsure date (depo) Previous PAP test: 2018, wnl Material Received ThinPrep cervical Copies To Alisson Urrutia CNM [address] [place] [address] Dr. Ramirez [address] [address] Adriana Wang CNM [address] [place] [address] Dr. Ramirez [address] [address] Electronically Signed By: AMBER Rasmussen ([facility]) 10/22/20 3417 The Pap Test is a screening procedure with the inherent possibility of both false negative and false positive results. Results should be interpreted in the context of historic and current clinical findings. Reliability of the Pap Test is enhanced by performing the test on a regular repetitive basis. Patient: Jose Daniel Page 1 of 1 Name: Quyen Schmitt Age/Sex: 33/F : 1990 Unit#: [id number] Attend Dr: Aide Seaman Re01/06/24 Status: DEP REF Location: [facility] Disch: SPEC : [id number] RIN: 01/06/24-UNK STATUS: COMP REQ : [id number] RECD: 01/06/[address]: Aide Seaman COMP: 01/12/24 ENTERED: 01/06/[address]: ORDERED: HSV Cult rflx Test Result Flag Reference HSV Cult rflx SEE NOTE A HERPES SIMPLEX VIRUS CULTURE W/RFL TO TYPING Micro Number: [id number] Test Status: Final Specimen Source: Not given Specimen Quality: Adequate HSV Culture: Isolated HSV TYPE 2: Isolated HSV TYPE 1: The incidence of HSV 1 infection in the presence of HSV 2 (dual infection) is extremely rare. Therefore, testing for HSV 1 was not performed. THIS TEST WAS PERFORMED AT: [email or web address] [id number] DILCIA VIDALES MD Assessment & Plan Assessment & Plan (1) Well woman exam with routine gynecological exam: Code(s): Z01.419 - Encounter for gynecological examination (general) (routine) without abnormal findings Category: Medical (2) Family planning counseling: Comment: Currently using condoms and content w those 02/03/2024. Code(s): Z30.09 - Encounter for other general counseling and advice on contraception Category: Medical (3) Constipation: Code(s): K59.00 - Constipation, unspecified Category: Medical (4) Herpes genitalis: Comment: Had single lesion diagnosed with culture HSV 2 to at [facility] urgent Care 01/06/2024 full teaching done, patient has Valtrex for episodic treatment. Code(s): A60.00 - Herpesviral infection of urogenital system, unspecified Category: Medical (5) Pelvic pain: Comment: new onset, left sided w unscheduled bleeding 11/08/23.; often before menses, better than before, has been evaluated,,,;02/03/24, not currently an issue she is aware of some discomfort related to ovulation which is pending now but does not describe it as painful. Code(s): R10.2 - Pelvic and perineal pain Category: Medical (6) Cervical cancer screening: Comment: 10/18/20 pap= neg , w neg hpv Code(s): Z12.4 - Encounter for screening for malignant neoplasm of cervix Category: Medical Plan -----Discussed in this visit the following: healthy balanced diet, regular and consistent exercise, getting recommended health screens, doing the best she can for her particular health concerns, kegel exercises, pap smear screening and followup recommendations, mammography screening and SBE, normal changes in cycles in her life stage--- Very thorough discussion about how HSV ease transmitted from 1 you min to another throughout our life cycle and that it can lie dormant for many many years and only under times of physical or emotional stressors such as her recent challenges with her GI system does it end up presenting as an outbreak and I went into all factors that are involved with transmission and self-care and treatment and limitations of treatment and limitations of diagnosis. Discussed that really it can only being diagnosed when the lesion has erupted out and is unroofed and able to be cultured as it was finally on the day that it was noted to be so.-by her history telling. According to her history she said the lesion was there a couple of days before, but everybody thought it was fine and I explained why that would be the case. --I reviewed primary and secondary outbreaks and HSV transmission and patterns of transmission, oral to genital, as well as genital to genital, and oral to oral, and to other sites as well. -- I discussed normal pathophysiology of the herpes virus, and patterns of recurrence, and contributing factors that can lead to an outbreak or recurrence. I discussed transmission in great detail, and comfort measures in detail. --Safer sex and limitations of condoms discussed. ( i e- they do not ever protect from vulvar or scrotal contact) I discussed other std testing as well ( hiv, hep b & c, rpr, gc/chlamydia, trichomoniasis), as well as common concurrent bacterial vaginosis or yeast. --she did want to go get HIV hep B hep C and syphilis testing in the lab today she is on the portal and will be able to get all of her results we reviewed her portal entries together at her request. --additionally I addressed the enormous emotional challenge that this presents and discussed the feelings that this always brings up. --discussed as well, issues with partner discussions, and transmission, and history and the challenge of sometimes figuring out original contact source. --also discussed personal hygiene and safety as regards intimate towels, clothing, and avoiding inadvertent touching of potentially infectious areas and then touching other mucosal membranes or open lesions, including eyes, and also protecting babies from inappropriate contact with these. At this point she is fine and she does not feel she has a anymore questions needs called or see her in 1 year. Orders: Orders Hepatitis C Antibody Today A60.00 - Herpesviral infection of urogenital system, unspecified, K59.00 - Constipation, unspecified, Z01.419 - Encounter for gynecological examination (general) (routine) without abnormal findings, Z30.09 - Encounter for other general counseling and advice on contraception Hepatitis B Surface Antigen Today A60.00 - Herpesviral infection of urogenital system, unspecified, K59.00 - Constipation, unspecified, Z01.419 - Encounter for gynecological examination (general) (routine) without abnormal findings, Z30.09 - Encounter for other general counseling and advice on contraception HIV Ab/Ag Today A60.00 - Herpesviral infection of urogenital system, unspecified, K59.00 - Constipation, unspecified, Z01.419 - Encounter for gynecological examination (general) (routine) without abnormal findings, Z30.09 - Encounter for other general counseling and advice on contraception Syphilis Screen Today A60.00 - Herpesviral infection of urogenital system, unspecified, K59.00 - Constipation, unspecified, Z01.419 - Encounter for gynecological examination (general) (routine) without abnormal findings, Z30.09 - Encounter for other general counseling and advice on contraception Bacterial Vaginosis Panel Today Z01.419 - Encounter for gynecological examination (general) (routine) without abnormal findings CT NG by PCR Today Z01.419 - Encounter for gynecological examination (general) (routine) without abnormal findings Pap Smear Today Z01.419 - Encounter for gynecological examination (general) (routine) without abnormal findings Coding Level of Care Code Est Pt Prev Care 18-39y([id number]) Diagnoses Well woman exam with routine gynecological exam Z01.419 Family planning counseling Z30.09 Constipation K59.00 Herpes genitalis A60.00 Pelvic pain R10.2 Cervical cancer screening Z12.4
== END 2024-02-03 11:09 | disposition home or self-care (01) ==
PROVIDERS: PCP Registered Nurse; Visit Provider Advanced Practice Midwife
DX: Z01.419 Encounter for gynecological examination (general) (routine) without abnormal findings (principal); Z30.09 Encounter for other general counseling and advice on contraception; K59.00 Constipation, unspecified; A60.00 Herpesviral infection of urogenital system, unspecified; R10.2 Pelvic and perineal pain; Z12.4 Encounter for screening for malignant neoplasm of cervix
CPT/HCPCS: 99395

== ENCOUNTER 2024-02-03 11:56 | Outpatient (REF) | payer MEDICAID, SELFPAY ==
[2024-02-03 13:17] LABS: Appearance Urine Clear; Color Urine Yellow; Glucose Urine UA Negative (Negative); Leukocyte Esterase Urine Negative (Negative); Nitrite Urine Negative (Negative); Urine Blood Negative (Negative); Urine Ketones Negative (Negative); Urine Protein Negative (Neg-Trace)
[2024-02-03 13:24] LABS: Bacteria Urine None Seen (None Seen); Hyaline Casts Urine 0-2 /LPF (0-2); RBC Urine 0-2 /HPF (0-2); WBC Urine 0-5 /HPF (0-5)
[2024-02-03 14:01] LABS: Syphilis Screen Nonreactive (Nonreactive)
[2024-02-03 14:02] LABS: HBsAGNum1 0.39 S/CO (0.00-0.99); HIV AB/AG Nonreactive (Nonreactive); HIV Num 1 0.05 S/CO (0.00-0.99); Hepatitis B Surface Antigen Negative (Negative); ~HepC Num1 0.12 S/CO (0.00-0.79); ~Hepatitis C Antibody Nonreactive (Nonreactive)
[2024-02-04 07:06] LABS: CT PCR NOT DETECTED (Not Detect.); NG PCR NOT DETECTED (Not Detect.)
== END 2024-02-03 11:57 | disposition home or self-care (01) ==
LOC: HO.HHCL 11:56
PROVIDERS: Visit Provider Advanced Practice Midwife
DX: Z01.419 Encounter for gynecological examination (general) (routine) without abnormal findings (principal); Z30.09 Encounter for other general counseling and advice on contraception; A60.00 Herpesviral infection of urogenital system, unspecified; K59.00 Constipation, unspecified
CPT/HCPCS: 81001; 86780; 86803; 87340; 87389; 87491; 87591

== ENCOUNTER 2024-03-15 10:39 | Outpatient (REF) | payer MEDICAID, SELFPAY ==
--- NOTE | ~2024-03-15 | US_ITS ---
EXAMINATION: MM DIAGNOSTIC DIGITAL BREAST TOMOSYNTHESIS, BILATERAL Limited left breast ultrasound. CLINICAL INFORMATION: Left breast palpable lump in the lower outer quadrant. Patient previously had left breast pain which she does not have today. COMPARISON: Mammography: Comparison is made with relevant prior exams. TECHNIQUE: Digital breast mammography with tomosynthesis is performed in both the craniocaudal and mediolateral oblique views along with computer-aided detection (CAD). Limited left breast ultrasound. FINDINGS: The breasts are extremely dense, which lowers the sensitivity of mammography (ACR BI-RADS breast composition Category d). Right: There are no significant masses, abnormal calcifications, or other abnormalities. Left: 1 cm oval mass in the central inner breast. No suspicious calcifications or other abnormal findings. Targeted color Doppler ultrasound in the lower outer quadrant demonstrates normal fibroglandular breast tissue. There is an incidental simple cyst at 4:00 5 cm from the nipple measuring 4 x 3 x 2 mm. Targeted color Doppler ultrasound at 10:00 7 cm from nipple demonstrates a simple cyst measuring 10 x 4 x 8 mm which correlates with the circumscribed oval mass seen on mammography. Otherwise and 9:00 3 cm from nipple there is a simple cyst measuring 5 x 5 x 4 mm. Results are provided to the patient at time of visit by the technologist. US/US breast LT limited mamm only IMPRESSION: Simple cysts o ultrasound. Benign. No mammographic or sonographic abnormality to account for the patient's lower outer quadrant palpable lump. Recommend clinical evaluation and follow-up. ASSESSMENT: BI-RADS BI-RADS 2 - Benign Findings RECOMMENDATION: Mammo at 40 or earlier if clinically needed This patient's information was entered into a reminder system with a target due date for their next mammogram. Electronically signed by: Laura Timmons DO 03/15/2024 11:58 AM EST
== END 2024-03-15 10:40 | disposition home or self-care (01) ==
LOC: HO.MAMMO 10:39
PROVIDERS: PCP Nurse Practitioner Primary Care; Visit Provider Nurse Practitioner Primary Care
DX: N63.23 Unspecified lump in the left breast, lower outer quadrant (principal)
CPT/HCPCS: 76642; 77062; 77066

== ENCOUNTER → 2024-03-15 10:45 | Outpatient (BNV) | payer MEDICAID, SELFPAY | PROVIDERS: PCP Nurse Practitioner Primary Care; Visit Provider Internal Medicine | DX: N63.23 Unspecified lump in the left breast, lower outer quadrant (principal) | CPT/HCPCS: 76642; 77062; 77066 ==

== ENCOUNTER 2024-04-14 17:46 | Outpatient (REF) | payer MEDICAID, SELFPAY ==
--- OUTSIDE RECORDS SUMMARY | 2024-04-14 19:44 | XMS_ITS | Clinical Summary ---
Author Organization [employer] Address [address] [facility] [address] [place] [address] Care Team Providers Care Hostess Party Sales Representative Name Role Phone Ting Fitzpatrick NP Primary Care Provider [phone] Allergies No known active allergies Medications docusate sodium (Colace) 100 MG capsule Take 1 capsule (100 mg) by mouth 2 times daily. 180 capsule 3 4 12/25/19 25 Active hydrocortisone (Proctosol HC) 2.5 % rectal cream Insert into the rectum if needed in the morning and at bedtime for hemorrhoids. 28 g 1 4 Active Additional Information Patient not taking.Reported on 01/12/2024 witch vidya-glycerin (Tucks) pad Apply topically if needed for irritation or hemorrhoids. 100 each 1 4 Active acyclovir (Zovirax) 5 % ointmentIndicat ions:Rectal lesion Apply topically 6 (six) times a day. Space applications every 3 hours. 15 g 4 Active ibuprofen 400 MG tabletIndicatio ns:Viral URI Take 1 tablet (400 mg) by mouth every 8 (eight) hours if needed for fever or mild pain. 30 tablet 5 05/15/19 25 Active Active Problems Problem Noted Date Diagnosed Date HSV (herpes simplex virus) anogenital infection 01/20/2024 Assessment & Plan (01/31/2024 3:06 PM EST): Reviewed course of virus, Episodic rx prescribed Monitor frequency of reoccurrence Transmission reviewed Change in bowel habits 01/20/2024 Assessment & Plan (01/31/2024 3:06 PM EST): Encouraged hydration, colace rx sent Referral to gi Difficulty in urination 01/12/2024 Assessment & Plan (01/12/2024 11:36 AM EDT): -Urine dipstick today is neg -TV/pelvis US 10/2023 The left ovary contains a 4.4 cm benign, functional simple cyst. No imaging follow-up is recommended. There is dilated left adnexal vasculature, which can be associated with pelvic congestion. Nabothian cysts are seen within the cervix. 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 -today BV panel to eval for trich,ch/gn sent today -will call w results -UA w reflex to r/o hematuria -bladder US referred today to r/o any anatomic obstruction -will call w results -alarm signs and symptoms discussed w pt -miralax prn only and continue milk of mag -apt w PCP 01/20/2024 scheduled already Encounter for health maintenance examination Assessment & Plan (06/01/2023 9:52 AM EDT): 32 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, 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, anticipatory guidance reviewed, open to at this time, hpv vaccines reviewed Carpal tunnel syndrome of right wrist 06/01/2023 Assessment & Plan (06/01/2023 9:53 AM EDT): Pt endoreses intermittent tingling, has carpal tunnel brace at home, unable to elicit symptoms today, wear braces nocturnally for up to 2 weeks, if symptoms increase, fail to resolve, return to clinic Exposure to communicable disease 06/01/2023 Assessment & Plan (06/01/2023 9:54 AM EDT): T spot required for work, no cough hx negative Family history of thyroid disease in father 05/14 Assessment & Plan (06/01/2023 9:54 AM EDT): Pt endorses some fatigue, labs as ordered below, Chronic headache disorder 11/01/2021 Retinal tear of right eye 06/25/2021 Assessment & Plan (06/01/2023 9:54 AM EDT): In care with ophthalmology Encounters Date Type Department Care Team Description 04/14/2024 10:40 AM EST Office Visit [facility] [address] [address] Francisco Mcmahon MD Viral URI 03/29/[address] [address] Trisha Saavedra RN Results 03/24/[address] [address] Paige Sheffield [place] recall 03/15/2024 Orders Only [address] [address] Teri Sy ANP 02/19/2024 1:00 PM EST Office Visit [facility] [address] [address] Teri Sy ANP Breast tenderness in female (Primary Dx); Mass of lower outer quadrant of left breast 02/03/2024 Orders Only GENERIC EXTERNAL DATA DEPARTMENT Provider, Generic External Data 01/20/2024 11:15 AM EST Office Visit [address] [address] Ting Fitzpatrick NP HSV (herpes simplex virus) anogenital infection (Primary Dx); Change in bowel habits 01/14/[address] [address] Heather Alberto, HERMAN 01/13/2024 Orders Only [facility] [address] [address] Aide Seaman NP Genital herpes in women (Primary Dx) 01/13/2024 Telephone [facility] [address] [place] [address] Heather Alberto RN 01/13/2024 Orders Only [facility] [address] [place] [address] Aide Seaman NP from Last 3 Months Family History Medical History Relation Name Comments Hyperlipidemia Father Hypertension Father Hyperthyroidism Father s/p thyroide ctomy, not malignant Relation Name Status Comments Father Social History Tobacco Use Types Packs/Day Years Used Date Smoking Tobacco: Never Passive Smoke Exposure: Never Smokeless Tobacco: Never Tobacco Cessation:Counseling Given: Not Answered Alcohol Use Standard Drinks/Week Comments Never 0 (1 standard drink = 0.6 oz pur e alcohol) Depression Answer Date Recorded Patient Health Questionnaire-9 Score 0 06/01/2023 Patient Health Questionnaire-9 Score 0 06/01/2023 Last PHQ-9: Questionnaire Data Not on file 0 06/01/2023 Housing Stability Answer Date Recorded What is your housing situation today? I have megan grant 06/01/[address] you li ve. Do you have problems with any of the following? None of the above 06/01/2023 Food Insecurity Answer Date Recorded Within the past 12 months, y ou worried that your food would run out before you got money to buy more: Never True 06/01/2023 Within the past 12 months,th e food you bought just didn't last and you didn't have enough money to get more: Never True Transportation Answer Date Recorded In the past 12 months, has l ack of transportation kept you from medical appts, meetings, work or from getting things needed for daily living? No 06/01/2023 Utilities Answer Date Recorded In the past 12 months, has t he electric, gas, oil or water company threatened to shut off services in your home? No 06/01/2023 Depression Answer Date Recorded Patient Health Questionnaire-2 Score 0 06/01/2023 Comments Unknown Sex and Gender Information Value Date Recorded Sex Assigned at Female 01/13/2022 10:20 AM EDT Legal Sex Female 10:20 AM EDT Gender Identity Female 01/13/2022 10:20 AM EDT Sexual Orientation Choose not to disclose 2021 10:20 AM EDT Last Filed Vital Signs Vital Sign Reading Time Taken Comments Blood Pressure 124/81 04/14/2024 10:46 AM EST Pulse 70 04/14/2024 10:46 AM EST Temperature 36.6 ??C (97.9 ??F) 04/14/2024 10:[address] Respiratory Rate 16 04/14/2024 10:46 AM EST Oxygen Saturation 100% 04/14/2024 10:46 AM EST Inhaled Oxygen Concentration - - Weight 56 kg (123 lb 6.4 oz) 04/14/2024 10:46 AM EST Height 154.9 cm (5' 1 ) 01/20/2024 11:10 AM EST Body Mass Index 23.32 01/20/2024 11:10 AM EST Plan of Treatment Upcoming Encounters Date Type Department Care Team (Late st Contact Info) Description 06/06/2024 9:00 AM EDT Office Visit [facility] [address] [place], [place] [phone] Ting Fitzpatrick NP [address] [place] [address] Health Maintenance Due Date Last Done Comments Alcohol/Substance Use Screening 2002 Family Planning (PISQ) 2005 HPV Vaccines (2 - 3-dose series) 12/26/2008 11/28/2008 HPV/Cotest 2020 COVID-19 Vaccine ( season) 2023 02/25/2021, 06/11/2020 Influenza Vaccine (#1) 2023 , 12/05/2020, 12/31/2018, Additional history exists Depression Screening 05/31/2024 06/01/2023, 06/01/19 SDOH Screening 05/31/2024 06/01/2023 Tobacco Screening 02/18/2025 02/19/2024 DTaP/Tdap/Td Vaccines (7 - Td or Tdap) 11/11/2026 11/11/2016, 06/10/2015, 08/31/2003, Additional history exists Cervical Cancer Screening 02/02/2027 Pap Smear 02/02/2027 02/03/2024 Zoster Vaccines (1 of 2) 2040 RSV Patients and Patients Aged 60 years or older (1 - 1-dose 75+ series) 2065 HIB Vaccines Completed 12/28/1991, 03/16, 01/26/1991, Additional history exists IPV Vaccines Completed 09/23/1994, 05/14, 12/28/1991, Additional history exists Hepatitis B Vaccines Completed 05/15/1997, 11/11/1996, 09/02/1996 Meningococcal Vaccine Completed 11/28/2008 Hepatitis C Screening Completed 03/29/2020 HIV Screening Completed 06/25/2021, 03/29/2020 Hepatitis A Vaccines Aged Out No long er eligible based on patient's age to complete this topic Pneumococcal Vaccine: Pediatrics (0 to 5 Years) and At-Risk Patients (6 to 49) Years) Aged Out No longer eligible based on patient's age to complete this topic RSV under 20 months Aged Out No longe r eligible based on patient's age to complete this topic Rotavirus Vaccines Aged Out No longer eligible based on patient's age to complete this topic Procedures Procedure Name Priority Date/Time Associated Diagnosis Comments POCT INFLUENZA A (ID NOW RAPID MOLECULAR) Routine 04/14/2024 11:06 AM EST Viral URI POCT RAPID STREP A Routine 04/14/2024 11 :05 AM EST Viral URI POCT INFLUENZA B (ID NOW RAPID MOLECULAR) Routine 04/14/2024 11:05 AM EST Viral URI POCT RAPID COVID ANTIGEN Routine 04/14/2024 10:49 AM EST Viral URI BI US BREAST LIMITED LEFT Urgent 03/15/2024 11:15 AM EST Mass of lower outer quadrant of left breast BI MAMMOGRAM DIAGNOSTIC TOMOSYNTHESIS BILATERAL Routine 03/15/2024 10:45 AM EST PAP SMEAR Routine 02/03/2024 11:08 AM EST BACTERIAL VAGINOSIS PANEL Routine 02/03/2024 10:00 AM EST CHLAMYDIA/N. GONORRHOEAE RNA, TMA, UROGENITAL Routine 02/03/2024 10:00 AM EST US BLADDER Routine 01/15/2024 10:26 AM EDT Urinary problem in female HIV 1/2 ANTIGEN/ANTIBODY, FOURTH GENERATION W/RFL Routine 06/25/2021 9:58 AM EDT ZZZ HISTORICAL HIV AB/AG Routine 03/29/2020 10:44 AM EST from Last 3 Months or Most Recently Relevant to Health Maintenance Results * Influenza A (ID NOW Rapid Molecular) (04/14/2024 11:06 AM EST) [facility] Influenza A Negative Negative, Indeterminate [facility] Swab 04/14/2024 11:0 6 AM EST Francisco Mcmahon MD POINT OF CARE TEST ENTER/EDIT OR DERABLES Final Result Performing Organization Address City/[facility]/ZIP Co de Phone Number [facility] [address] [place] [address] [phone] * Influenza B (ID NOW Rapid Molecular) (04/14/2024 11:05 AM EST) [facility] Influenza B Negative Negative, Indeterminate [facility] Swab 04/14/2024 11:0 5 AM EST Francisco Mcmahon MD POINT OF CARE TEST ENTER/EDIT OR DERABLES Final Result Performing Organization Address [facility] Co de Phone Number [facility] [address] [place] [phone] * POCT rapid strep A manually resulted (04/14/2024 11:05 AM EST) [facility] Rapid Strep A Screen Negative Negative, None Detected Swab 04/14/2024 11:0 5 AM EST us Francisco Mcmahon MD POINT OF CARE TEST ENTER/EDIT OR DERABLES Final Result * POCT Rapid COVID Ag (04/14/2024 10:49 AM EST) Rapid COVID Ag Negative Swab 04/14/2024 10:4 9 AM EST us Francisco Mcmahon MD POINT OF CARE TEST ENTER/EDIT OR DERABLES Final Result * BI US Breast Limited Left (03/15/2024 11:15 AM EST) Anatomical Region Laterality Modality Breast Left Ultrasound 03/15/2024 11:1 5 AM EST Narrative 03/15/2024 12:00 PM EST ? [facility] ? [address] ?[place] [address] ? Ultrasound Report ? Signed ? Patient: Jose DanielQuyen Pedraza ?MR#: [id number] ?? [id number] ? : 1990 ?Acct:[id number] ? Age/Sex: 33 / F ?ADM Date: 03/15/24 ? Loc: HO.MAMMO ? Attending Dr: Teri Sy NP ? Ordering Physician: TERI SY NP ?? Date of Service: 03/15/24 ?? Procedure(s): US breast LT limited mamm only ?? Accession Number(s): [id number] ? cc: TERI SY NP ? EXAMINATION: ?? MM DIAGNOSTIC DIGITAL BREAST TOMOSYNTHESIS, BILATERAL ?? Limited left breast ultrasound. ? CLINICAL INFORMATION: ? Left breast palpable lump in the lower outer quadrant. Patient ?? previously had left breast pain which she does not have today. ? COMPARISON: ?? Mammography: Comparison is made with relevant prior exams. ? TECHNIQUE: ?? Digital breast mammography with tomosynthesis is performed in both the ?? craniocaudal and mediolateral oblique views along with computer-aided ?? detection (CAD). ?? Limited left breast ultrasound. ? FINDINGS: ?? The breasts are extremely dense, which lowers the sensitivity of ?? mammography (ACR BI-RADS breast composition Category d). ?? Right: ?? There are no significant masses, abnormal calcifications, or other ?? abnormalities. ? Left: ?? 1 cm oval mass in the central inner breast. ?? No suspicious calcifications or other abnormal findings. ? Targeted color Doppler ultrasound ??in the lower outer quadrant ?? demonstrates normal fibroglandular breast tissue. There is an ?? incidental simple cyst at 4:00 5 cm from the nipple measuring 4 x 3 x 2 ?? mm. ? Targeted color Doppler ultrasound at 10:00 7 cm from nipple ?? demonstrates a simple cyst measuring 10 x 4 x 8 mm which correlates ?? with the circumscribed oval mass seen on mammography. ?? Otherwise and 9:00 3 cm from nipple there is a simple cyst measuring 5 ?? x 5 x 4 mm. ? Results are provided to the patient at time of visit by the ?? technologist. ? US/US breast LT limited mamm only ?? IMPRESSION: ?? Simple cysts o ultrasound. Benign. ?? No mammographic or sonographic abnormality to account for the patient's ?? lower outer quadrant palpable lump. Recommend clinical evaluation and ?? follow-up. ? ASSESSMENT: ? BI-RADS BI-RADS 2 - Benign Findings ? RECOMMENDATION: ?? Mammo at 40 or earlier if clinically needed ? This patient's information was entered into a reminder system with a ?? target due date for their next mammogram. ? Electronically signed by: ??Laura Timmons DO ??03/15/2024 11:58 AM EST ? Dictated By: ?Laura Timmons DO ? Signed By: ?<Electronically signed by Laura Timmons, DO in OV> ? 03/15/24 1158 ? DD/ 1115 ? TD/TT: 03/15/24 1145 ? Record Cutter: ? Procedure Note Jessika Wild - 03/15/2024 [place] [facility] [address] [place], [place] [address] Ultrasound Report Signed Patient: Jatin Schmitt#: [id number] : 1990Acct:[id number] Age/Sex: 33 / FADM Date: 03/15/24 Loc: HO.MAMMO Attending Dr: Teri Sy NP Ordering Physician: TERI SY NP Date of Service: 03/15/24 Procedure(s): US breast LT limited mamm only Accession Number(s): [id number] cc: TERI SY NP EXAMINATION: MM DIAGNOSTIC DIGITAL BREAST TOMOSYNTHESIS, BILATERAL Limited left breast ultrasound. CLINICAL INFORMATION: Left breast palpable lump in the lower outer quadrant. Patient previously had left breast pain which she does not have today. COMPARISON: Mammography: Comparison is made with relevant prior exams. TECHNIQUE: Digital breast mammography with tomosynthesis is performed in both the craniocaudal and mediolateral oblique views along with computer-aided detection (CAD). Limited left breast ultrasound. FINDINGS: The breasts are extremely dense, which lowers the sensitivity of mammography (ACR BI-RADS breast composition Category d). Right: There are no significant masses, abnormal calcifications, or other abnormalities. Left: 1 cm oval mass in the central inner breast. No suspicious calcifications or other abnormal findings. Targeted color Doppler ultrasound in the lower outer quadrant demonstrates normal fibroglandular breast tissue. There is an incidental simple cyst at 4:00 5 cm from the nipple measuring 4 x 3 x 2 mm. Targeted color Doppler ultrasound at 10:00 7 cm from nipple demonstrates a simple cyst measuring 10 x 4 x 8 mm which correlates with the circumscribed oval mass seen on mammography. Otherwise and 9:00 3 cm from nipple there is a simple cyst measuring 5 x 5 x 4 mm. Results are provided to the patient at time of visit by the technologist. US/US breast LT limited mamm only IMPRESSION: Simple cysts o ultrasound. Benign. No mammographic or sonographic abnormality to account for the patient's lower outer quadrant palpable lump. Recommend clinical evaluation and follow-up. ASSESSMENT: BI-RADS BI-RADS 2 - Benign Findings RECOMMENDATION: Mammo at 40 or earlier if clinically needed This patient's information was entered into a reminder system with a target due date for their next mammogram. Electronically signed by: Laura Timmons DO 03/15/2024 11:58 AM [facility] Dictated By: Laura Timmons DO Signed By: <Electronically signed by Laura Timmons DO in OV> 03/15/24 1158 DD/ 1115 TD/TT: 03/15/24 1145 Record Cutter: us Teri Corey ARANA IMMiryam US PROCEDURES Edited Result - Final * BI Mammogram Diagnostic Tomosynthesis Bilateral (03/15/2024 10:45 AM EST) Anatomical Region Laterality Modality Breast Bilateral Mammography 03/15/2024 10:4 5 AM EST Narrative 03/15/2024 12:00 PM EST ? [facility] ? [address] ?[place], [place] [address] ? Mammography Report ? Signed ? Patient: Quyen Schmitt ?MR#: [id number] ?? [id number] ? : 1990 ?Acct:[id number] ? Age/Sex: 33 / F ?ADM Date: 03/15/24 ? Loc: HO.MAMMO ? Attending Dr: Teri Sy MANAGEMENT SCIENTIST ? Ordering Physician: TERI SY NP ?Results: 2Benign Fin ?? dings ? Date of Service: 03/15/24 ?Follow Up: Mammo at 40 or e ?? arlier if clinically needed ? Procedure(s): MM tomosynthesis diagnostic BI ?? Accession Number(s): [id number] ? cc: TERI SY NP ? EXAMINATION: ?? MM DIAGNOSTIC DIGITAL BREAST TOMOSYNTHESIS, BILATERAL ?? Limited left breast ultrasound. ? CLINICAL INFORMATION: ? Left breast palpable lump in the lower outer quadrant. Patient ?? previously had left breast pain which she does not have today. ? COMPARISON: ?? Mammography: Comparison is made with relevant prior exams. ? TECHNIQUE: ?? Digital breast mammography with tomosynthesis is performed in both the ?? craniocaudal and mediolateral oblique views along with computer-aided ?? detection (CAD). ?? Limited left breast ultrasound. ? FINDINGS: ?? The breasts are extremely dense, which lowers the sensitivity of ?? mammography (ACR BI-RADS breast composition Category d). ?? Right: ?? There are no significant masses, abnormal calcifications, or other ?? abnormalities. ? Left: ?? 1 cm oval mass in the central inner breast. ?? No suspicious calcifications or other abnormal findings. ? Targeted color Doppler ultrasound ??in the lower outer quadrant ?? demonstrates normal fibroglandular breast tissue. There is an ?? incidental simple cyst at 4:00 5 cm from the nipple measuring 4 x 3 x 2 ?? mm. ? Targeted color Doppler ultrasound at 10:00 7 cm from nipple ?? demonstrates a simple cyst measuring 10 x 4 x 8 mm which correlates ?? with the circumscribed oval mass seen on mammography. ?? Otherwise and 9:00 3 cm from nipple there is a simple cyst measuring 5 ?? x 5 x 4 mm. ? Results are provided to the patient at time of visit by the ?? technologist. ? MM/MM tomosynthesis diagnostic BI ?? IMPRESSION: ?? Simple cysts o ultrasound. Benign. ?? No mammographic or sonographic abnormality to account for the patient's ?? lower outer quadrant palpable lump. Recommend clinical evaluation and ?? follow-up. ? ASSESSMENT: ? BI-RADS BI-RADS 2 - Benign Findings ? RECOMMENDATION: ?? Mammo at 40 or earlier if clinically needed ? This patient's information was entered into a reminder system with a ?? target due date for their next mammogram. ? Electronically signed by: ??Laura Timmons DO ??03/15/2024 11:58 AM EST ?? RP ? Dictated By: ?Laura Timmons DO ? Signed By: ?<Electronically signed by Laura Timmons, DO in OV> ? 03/15/24 1158 ? DD/ 1045 ? TD/TT: 03/15/24 1105 ? Record Cutter: ? Procedure Note Donotuseinterpreter, Image - 03/15/2024 [place] [facility] [address] [place] [address] Mammography Report Signed Patient: Jatin Schmitt#: [id number] : 1990Acct:[id number] Age/Sex: 33 / FADM Date: 03/15/24 Loc: HO.MAMMO Attending Dr: Teri Sy MANAGEMENT SCIENTIST Ordering Physician: TERI SY NPResults: 2Benign Kam [place] Date of Service: 03/15/24Follow Up: Mammo at 40 or e arlier if clinically needed Procedure(s): MM tomosynthesis diagnostic BI Accession Number(s): [id number] cc: TERI SY NP EXAMINATION: MM DIAGNOSTIC DIGITAL BREAST TOMOSYNTHESIS, BILATERAL Limited left breast ultrasound. CLINICAL INFORMATION: Left breast palpable lump in the lower outer quadrant. Patient previously had left breast pain which she does not have today. COMPARISON: Mammography: Comparison is made with relevant prior exams. TECHNIQUE: Digital breast mammography with tomosynthesis is performed in both the craniocaudal and mediolateral oblique views along with computer-aided detection (CAD). Limited left breast ultrasound. FINDINGS: The breasts are extremely dense, which lowers the sensitivity of mammography (ACR BI-RADS breast composition Category d). Right: There are no significant masses, abnormal calcifications, or other abnormalities. Left: 1 cm oval mass in the central inner breast. No suspicious calcifications or other abnormal findings. Targeted color Doppler ultrasound in the lower outer quadrant demonstrates normal fibroglandular breast tissue. There is an incidental simple cyst at 4:00 5 cm from the nipple measuring 4 x 3 x 2 mm. Targeted color Doppler ultrasound at 10:00 7 cm from nipple demonstrates a simple cyst measuring 10 x 4 x 8 mm which correlates with the circumscribed oval mass seen on mammography. Otherwise and 9:00 3 cm from nipple there is a simple cyst measuring 5 x 5 x 4 mm. Results are provided to the patient at time of visit by the technologist. MM/MM tomosynthesis diagnostic BI IMPRESSION: Simple cysts o ultrasound. Benign. No mammographic or sonographic abnormality to account for the patient's lower outer quadrant palpable lump. Recommend clinical evaluation and follow-up. ASSESSMENT: BI-RADS BI-RADS 2 - Benign Findings RECOMMENDATION: Mammo at 40 or earlier if clinically needed This patient's information was entered into a reminder system with a target due date for their next mammogram. Electronically signed by: Laura Timmons DO 03/15/2024 11:58 AM EST Dictated By: Laura Timmons DO Signed By: <Electronically signed by Laura Timmons DO in OV> 03/15/24 1158 DD/ 1045 TD/TT: 03/15/24 1105 Record Cutter: Teri ARANA IMMiryam BI PROCEDURES Edited Result - Final * Pap Smear (02/03/2024 11:08 AM EST) 02/03/2024 11:0 8 AM EST 02/04/2024 8:50 AM EST [facility] - 02/12/2024 11:27 AM EST ----- ------- Name: Quyen Schmitt ? Age/Sex: 33/F ? : 1990 Unit#: [id number] ?? Attend Dr: Adriana Wang CNM ?Re02/03/24 ?Status: DEP REF ? Location: HO.LNP ?Disch: ? ----- ------- SPEC : [id number] ?RECD: 02/04/24 ? STATUS: ??SOUT ? REQ NUM: [id number] ? RIN: 02/03/243 ? SUBM DR: Adriana Wang CNM ? ENTERED: ??02/04/24 ?SP TYPE: Pap Smr ?OTHR DR: Katie De Paz MOTEL FOOD SERVICE SUPERVISOR ? ORDERED: ??Pap Smear ? Interpretation ?? Satisfactory for evaluation. ?? Negative for intraepithelial lesion or malignancy. ? HPV High Risk: ??Negative ? HPV Genotyping 16: ??Negative ?? HPV Genotyping 18: ??Negative ?Clinical Information LMP: Unknown date Previous PAP test: 2019, HPV mRNA E6/E7 ? Material Received ?? ThinPrep-Cervical Copies To: ?? Adriana Wang CNM ?? [facility] ?? [address] [facility] ?? [place] [address] ?? [phone] ?? Katie De Paz MOTEL FOOD SERVICE SUPERVISOR ?? [address] [facility] ?? [place] [address] ?? [phone] ----- ------- Signed (signature on file) AMBER Laguna ([facility]) 02/12/241126 ? ----- ------- ? END OF REPORT ? Generic External Data Provider LAB CYTOLOGY FRANKLIN ROBLEDO Final Result [facility] [address] [place] [address] [place] [address] [phone] * Bacterial Vaginosis (02/03/2024 10:00 AM EST) TRICHOMONAS VAGINALIS DETECTION BY PCR NOT DETECTED Not Detect [facility] BACTERIAL VAGINOSIS DETECTION BY PCR NEGATIVE Negative [facility] Comment:The BV organism targ ets of the Xpert Xpress MVP test can becommensal in women; Xpert Xpress MVP positive results forbacterial vaginosis should be considered in conjunction withother clinical and patient information to determine thedisease status. Organisms that are not detected by the XpertXpress MVP test have also been reported to be associatedwith BV and aerobic vaginitis.The Xpert Xpress MVP test performance has not been evaluatedin patients under the age of 14. ANTONIA GROUP DETECTION BY PCR NOT DETECTED Not Detect [facility] Antonia glab krusei PCR NOT DETECTED Not Detect [facility] 02/03/2024 10:0 0 AM EST 02/03/2024 6:09 PM EST us Generic External Data Provider LAB MICROBIOLOGY - GENERAL ORDERABLES Final Result [facility] [address] [place] [address] [phone] * Chlamydia/N. Gonorrhoeae RNA, TMA, Urogenitial (02/03/2024 10:00 AM EST) CT PCR NOT DETECTED Not Detect. [facility] Comment:A not detected test result does not exclude the possibilityof infection because test results can be affected byimproper specimen collection, concurrent antibiotic therapy,or the number of organisms in the specimen which may bebelow the sensitivity of the test. As with many diagnostictests, results from the Xpert CT/NG assay should beinterpreted in conjunction with other laboratory andclinical data available to the clinician.Xpert CT/NG performance has not been evaluated in patientsless than 14 years of age. The assay should not be used forthe evaluationof suspected sexual abuse or for other medico-legalindications. Additional testing is recommended in anycircumstance when false positive or false negative resultscould lead to adverse medical, social or psychologicalconsequences. NG PCR NOT DETECTED Not Detect. [facility] Comment:A not detected test result does not exclude the possibilityof infection because test results can be affected byimproper specimen collection, concurrent antibiotic therapy,or the number of organisms in the specimen which may bebelow the sensitivity of the test. As with many diagnostictests, results from the Xpert CT/NG assay should beinterpreted in conjunction with other laboratory andclinical data available to the clinician.Xpert CT/NG performance has not been evaluated in patientsless than 14 years of age. The assay should not be used forthe evaluationof suspected sexual abuse or for other medico-legalindications. Additional testing is recommended in anycircumstance when false positive or false negative resultscould lead to adverse medical, social or psychologicalconsequences. 02/03/2024 10:0 0 AM EST 02/03/2024 6:09 PM EST Narrative [facility] - 02/04/2024 7:49 AM EST Urine us Generic External Data Provider LAB MICROBIOLOGY - GENERAL ORDERABLES Final Result [facility] [address] [place] [address] [phone] * US BLADDER (01/15/2024 10:26 AM EDT) Anatomical Region Laterality Modality Abdomen Ultrasound 01/15/2024 10:2 6 AM EDT Narrative 03/13/2024 8:18 AM EST ? [facility] ?[address] ? [place] [address] ? Ultrasound Report ? Signed ? Patient: Quyen Schmitt ?MR#: [id number] ?? [id number] ? : 1990 ?Acct:[id number] ? Age/Sex: 33 / F ?ADM Date: 01/15/24 ? Loc: HO.HMGCX ? Attending Dr: Barb Lewis MD ? Ordering Physician: Barb Amador MD ?? Date of Service: 01/15/24 ?? Procedure(s): US bladder ?? Accession Number(s): [id number] ? cc: Ting Fitzpatrick NP; Barb Amador MD ? EXAMINATION: ?? US PELVIS LIMITED (BLADDER) ? CLINICAL INFORMATION: ?? Disordered urinary system. ? COMPARISON: ?? KUB January 03, 2024. ? TECHNIQUE: ?? Real-time imaging of the bladder. ? FINDINGS: ? BLADDER: Moderately distended. LEFT ureteral check visualized RIGHT ?? ureteral jet not visualized. Prevoid bladder volume is 204 mL. Postvoid ?? bladder volume is 0.7 mL. ? Complex low level internal echoes and the bladder characteristic of ?? debris. ? US/US bladder ?? IMPRESSION: ?? Complex low-level internal echoes in the bladder characteristic of ?? debris.. ? Electronically signed by: ??Judy Jackson MD ??03/13/2024 08:14 AM EST ?? RP ? Dictated By: ?Judy Jackson MD ? Signed By: ?<Electronically signed by Judy Jackson MD in OV> ? 03/13/24 0814 ? DD/ 1026 ? TD/TT: 01/15/24 1042 ? Record Cutter: ? Procedure Note Donotuseinterpreter, Image - 03/13/2024 [facility] [address] [place] [address] [place] [address] Ultrasound Report Signed Patient: Jatin Schmitt#: [id number] : 1990Acct:[id number] Age/Sex: 33 / FADM Date: 01/15/24 Loc: HO.HMGCX Attending Dr: Babr Lewis MD Ordering Physician: Barb Amador MD Date of Service: 01/15/24 Procedure(s): US bladder Accession Number(s): [id number] cc: Ting Fitzpatrick MANAGEMENT SCIENTIST; Barb Amador MD EXAMINATION: US PELVIS LIMITED (BLADDER) CLINICAL INFORMATION: Disordered urinary system. COMPARISON: KUB January 03, 2024. TECHNIQUE: Real-time imaging of the bladder. FINDINGS: BLADDER: Moderately distended. LEFT ureteral check visualized RIGHT ureteral jet not visualized. Prevoid bladder volume is 204 mL. Postvoid bladder volume is 0.7 mL. Complex low level internal echoes and the bladder characteristic of debris. US/US bladder IMPRESSION: Complex low-level internal echoes in the bladder characteristic of debris.. Electronically signed by: Judy Jackson MD 03/13/2024 08:14 AM EST Dictated By: Judy Jackson MD Signed By: <Electronically signed by Judy Jackson MD in OV> 03/13/24 0814 DD/ 1026 TD/TT: 01/15/24 1042 Record Cutter: us Barb Lewis MD [facility] US PROCEDURES Final Result * HIV 1/2 ANTIGEN/ANTIBODY,FOURTH GENERATION W/RFL (06/25/2021 9:58 AM EDT) HIV-1/2 ANTIGEN AND ANTIBODIES, 4TH GENERATION W/ REFLEX NON-REACT LIGIA NON-REACT LIGIA [facility] Comment: HIV-1 antigen and HIV-1/HIV-2 antibodies were not detected. There is no laboratory evidence of HIV infection. ?? PLEASE NOTE: This information has been disclosed to you from records whose confidentiality may be protected by state law. ??If your state requires such protection, then the state law prohibits you from making any further disclosure of the information without the specific written consent of the person to whom it pertains, or as otherwise permitted by law. A general authorization for the release of medical or other information is NOT sufficient for this purpose. ? For additional information please refer to http://education.[employer] Silicon/faq/KFZ739 (This link is being provided for informational/ educational purposes only.) ? The performance of this assay has not been clinically validated in patients less than 2 years old. ?? 06/25/2021 9:58 AM EDT us Molly Butcher MANAGEMENT SCIENTIST LAB BLOOD ORDERABLES Final Resu lt [facility] [address] * HIV AB/AG (03/29/2020 10:44 AM EST) HIV AB/AG Nonreactive Nonreactive [facility] Comment: HIV-1 p24 Ag and/or HIV-1/HIV-2 Ab not detected. ?? A test result that is nonreactive does not exclude the possibility of exposure to or infection with HIV-1 and/or HIV-2. Nonreactive results in this assay for individuals with prior exposure to HIV-1 and/or HIV-2 may be due to antigen and antibody levels that are below the limit of detection of this assay. ?? [employer] HIV Ag/Ab Combo assay result and supplemental assay results should be interpreted in conjunction with the patient's clinical presentation, history and other laboratory results. ??If the results are inconsistent with clinical evidence, additional testing is suggested to confirm the result. Hepatitis B Surface Antigen Negative Negative [facility] Hepatitis C Antibody Nonreactive Nonreactive [facility] Comment: Antibodies to HCV not detected; does not exclude early acute HCV infection. 03/29/2020 10:4 4 AM EST us Historical Provider HISTORICAL/NON ORDERABLE LABS Final Result [facility] [address] from Last 3 Months or Most Recently Relevant to Health Maintenance Insurance [facility] Care Teams Hostess Party Sales Representative Relationship Specialty Start Date End Date Ting Fitzpatrick NP [address] [place] [address] [place] [address] PCP - General Family Medicine 04/30/23
--- OUTSIDE RECORDS SUMMARY | 2024-04-14 19:44 | XMS_ITS | Encounter Summary ---
Author Organization [employer] Address [address] [place] [address] Care Team Providers Care Logistics Specialist Name Role Phone Ting Fitzpatrick NP Primary Care Provider [phone] Reason for Visit * Reason Onset Date Comments Results 03/29/2024 Encounter Details Date Type Department Care Team ([facility] Contact Info) Description 03/29/2024 Telephone [facility] [address] [place] [address] [phone] Trisha Saavedra RN Results Social History Tobacco Use Types Packs/Day Years Used Date Smoking Tobacco: Never Passive Smoke Exposure: Never Smokeless Tobacco: Never Alcohol Use Standard Drinks/Week Comments Never 0 [...] not to disclose 2021 10:20 AM EDT documented as of this encounter Miscellaneous Notes * Telephone Encounter - Trisha Saavedra RN - 03/29/2024 12:58 PM EST Telephone call to pt to advise of below results, pt stated she was already aware of the results from the ultrasound/mammogram. Advised her to call if any new or different symptoms present, pt verbalized understanding, to call clinic PRN. * Telephone Encounter - Trisha Saavedra RN - 03/29/2024 12:55 PM EST ----- Message from Michelle Nicole sent at 03/29/2024 9:23 AM EST ----- Pt likely aware of result from time of study, but please let pt know that US and mammo showed simple cysts, these do not need any intervention unless painful or any new symptoms. documented in this encounter Plan of Treatment Upcoming Encounters Date Type Department Care Team (Late st Contact Info) Description 06/06/2024 9:00 AM EDT Office Visit [facility] [address] [place] [address] Ting Fitzpatrick NP [address] [place] [address] documented as of this encounter Visit Diagnoses Not on filedocumented in this encounter Additional Health Concerns Assessment Noted Time PHQ-9 Depression Total Score: 0 06/01/19 9:03 AM EDT documented as of this encounter Care Teams Logistics Specialist Relationship Specialty Start Date End Date Ting Fitzpatrick NP [address] [place] [address] PCP - General Family Medicine 04/30/23 documented as of this encounter
--- OUTSIDE RECORDS SUMMARY | 2024-04-14 19:44 | XMS_ITS | Encounter Summary ---
Author Organization [employer] Address [address] [place] [address] Care Team Providers Care Mold Yarn Supervisor Name Role Phone Ting Fitzpatrick NP Primary Care Provider [phone] Reason for Visit * Reason Comments Sore Throat Encounter Details Date Type Department Care Team ([facility] Contact Info) Description 04/14/2024 10:40 AM EST Office Visit [facility] [address] [place], [place] [phone] Francisco Mcmahon MD [address] [place] [address] Viral URI Social History Tobacco Use Types Packs/Day Years [...] AM EDT documented as of this encounter Last Filed Vital Signs Vital Sign Reading [...] 6.4 oz) 04/14/2024 10:46 AM EST Height - - Body Mass Index 23.32 01/20/2024 11:10 AM EST documented in this encounter Progress Notes * Francisco Mcmahon MD - 04/14/2024 10:40 AM EST Subjective History was provided by the patient. Quyen Melissa is a 33 y.o. female who presents for evaluation of symptoms of a URI. Symptomsinclude myalgia, sore throat, and headache . Onset of symptoms was 1 day ago, unchanged since that time. Associated negative symptoms include cough, fever, runny nose, chills, congestion, nausea, vomiting, diarrhea, ear pain, and rash. Evaluation to date: none. 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 Constitutional: Appearance: Normal appearance. She is normal weight. HENT: Head: Normocephalic and atraumatic. Right Ear: Tympanic membrane, ear canal and external ear normal. Left Ear: Tympanic membrane, ear canal and external ear normal. Nose: Nose normal. No congestion or rhinorrhea. Mouth/Throat: Mouth: Mucous membranes are moist. Pharynx: Oropharynx is clear. Posterior oropharyngeal erythema present. No oropharyngeal exudate. Comments: No tonsillar enlargement. No thrush/exudate. Eyes: Extraocular Movements: Extraocular movements intact. Conjunctiva/sclera: Conjunctivae normal. Pupils: Pupils are equal, round, and reactive to light. Cardiovascular: Rate and Rhythm: Normal rate and regular rhythm. Heart sounds: Normal heart sounds. Pulmonary: Effort: Pulmonary effort is normal. Breath sounds: Normal breath sounds. Musculoskeletal: General: Normal range of motion. Cervical back: Normal range of motion and neck supple. Lymphadenopathy: Cervical: Cervical adenopathy (Left anterior cervical LAD ~5mm, non-tender & mobile) present. Skin: General: Skin is warm and dry. Neurological: General: No focal deficit present. Mental Status: She is alert and oriented to person, place, and time. Mental status is at baseline. Psychiatric: Mood and Affect: Mood normal. Behavior: Behavior normal. Thought Content: Thought content normal. Judgment: Judgment normal. Office Visit on 04/14/2024 Component Date Value Ref Range Status Influenza A 04/14/2024 Negative Negative, Indeterminate Final Influenza B 04/14/2024 Negative Negative, Indeterminate Final Rapid Strep A Screen 04/14/2024 Negative Negative, None Detected Final Rapid COVID Ag 04/14/2024 Negative Final Quyen was seen today for sore throat. Diagnoses and all orders for this visit: Viral URI - Influenza A (ID NOW Rapid Molecular) - Influenza B (ID NOW Rapid Molecular) - POCT rapid strep A manually resulted - POCT Rapid COVID Ag - Culture, Throat - ibuprofen 400 MG tablet; Take 1 tablet (400 mg) by mouth every 8 (eight) hours if needed for fever or mild pain. Patient with a clinical presentation of viral URI Normal pulmonary exam and no respiratory distress O2 sat reassuring Patient with isolated sore throat, body ache, and headache without cough/congestion Also with left anterior cervical LAD Rapid Strep was negative; given presenting symptoms, will check Throat Culture Rapid COVID-19 and Influenza A/B negative today Discussed supportive care with ample hydration, sleep position and rest OTC supportive medications reviewed Rx Ibuprofen; denies any chance of Droplet precautions discussed Advised to contact the clinic if no improvement of symptoms Indications for UC/ER use reviewed Work note provided documented in this encounter Plan of Treatment Upcoming Encounters Date Type Department Care Team (Late st Contact Info) Description 06/06/2024 9:00 AM EDT Office Visit [facility] [address] [place], [place] [phone] Ting Fitzpatrick NP [address] [place] [address] Scheduled Orders Name Type Priority Associated Diagnoses Orde r Schedule Culture, Throat Microbiology Routine Viral URI Ordered: 04/14/2024 documented as of this encounter Procedures Procedure Name Priority Date/Time Associated Diagnosis Comments POCT INFLUENZA A (ID NOW RAPID MOLECULAR) Routine 04/14/2024 11:06 AM EST Viral URI POCT INFLUENZA B (ID NOW RAPID MOLECULAR) Routine 04/14/2024 11:05 AM EST Viral URI POCT RAPID STREP A Routine 04/14/2024 11 :05 AM EST Viral URI POCT RAPID COVID ANTIGEN Routine 04/14/2024 10:49 AM EST Viral URI documented in this encounter Results * Influenza A (ID NOW Rapid Molecular) (04/14/2024 11:06 AM EST) Influenza A Negative Negative, Indeterminate [facility] Swab 04/14/2024 11:0 6 AM EST us Francisco Mcmahon MD POINT OF CARE TEST ENTER/EDIT OR DERABLES Final Result Performing Organization Address City/State/[facility] Co de Phone Number [facility] [address] [place] [phone] * POCT rapid strep A manually resulted (04/14/2024 11:05 AM EST) [facility] Rapid Strep A Screen Negative Negative, None Detected Swab 04/14/2024 11:0 5 AM EST us Francisco Mcmahon MD POINT OF CARE TEST ENTER/EDIT OR DERABLES Final Result * Influenza B (ID NOW Rapid Molecular) (04/14/2024 11:05 AM EST) [facility] Influenza B Negative Negative, Indeterminate [facility] Swab 04/14/2024 11:0 5 AM EST us Francisco Mcmahon MD POINT OF CARE TEST ENTER/EDIT OR DERABLES Final Result Performing Organization Address [facility] Co de Phone Number [facility] [address] [place] [phone] * POCT Rapid COVID Ag (04/14/2024 10:49 AM EST) [facility] Rapid COVID Ag Negative Swab 04/14/2024 10:4 9 AM EST us Francisco Mcmahon MD POINT OF CARE TEST ENTER/EDIT OR DERABLES Final Result documented in this encounter Visit Diagnoses Diagnosis Viral URI Acute upper respiratory infections of unspecified site documented in this encounter Additional Health Concerns Assessment Noted Time PHQ-9 Depression Total Score: 0 06/01/19 24 9:03 AM EDT documented as of this encounter Care Teams Mold Yarn Supervisor Relationship Specialty Start Date End Date Ting Fitzpatrick NP [address] [place] [phone] PCP - General Family Medicine 04/30/23 documented as of this encounter
--- OUTSIDE RECORDS SUMMARY | 2024-04-14 19:44 | XMS_ITS | Encounter Summary ---
Author Organization [employer] Address [address] [place] [address] Care Team Providers Care Hand Model Name Role Phone Ting Fitzpatrick NP Primary Care Provider [phone] Encounter Details Date Type Department Care Team ([facility] st Contact Info) Description 03/15/[address] [facility] [address] [place], [place] [phone] Teri Sy ANP [address] [place], [place] [phone] Social History Tobacco Use Types Packs/Day Years [...] AM EDT documented as of this encounter Plan of Treatment Upcoming Encounters Date Type Department Care Team (Late st Contact Info) Description 06/06/2024 9:00 AM EDT Office Visit [facility] [address] [place] [phone] Ting Fitzpatrick NP [address] [place] [address] documented as of this encounter Procedures Procedure Name Priority Date/Time Associated Diagnosis Comments BI MAMMOGRAM DIAGNOSTIC TOMOSYNTHESIS BILATERAL Routine 03/15/2024 10:45 AM EST documented in this encounter Results * BI Mammogram Diagnostic Tomosynthesis Bilateral (03/15/2024 10:45 AM EST) Anatomical Region Laterality Modality Breast Bilateral Mammography 03/15/2024 10:4 5 AM EST Narrative 03/15/2024 12:00 PM EST ? [facility] ? [address] ?[place] [address] ? Mammography Report ? Signed ? Patient: Jose Daniel Melissa,Quyen ?MR#: [id number] ?? [id number] ? : 1990 ?Acct:[id number] ? Age/Sex: 33 / F ?ADM Date: 12/31/24 ? Loc: HO.MAMMO ? Attending Dr: Teri Sy MACHINIST MATE ? Ordering Physician: TERI SY NP ?Results: 2Benign Fin ?? dings ? Date of Service: 03/15/24 ?Follow Up: Mammo at 40 or e ?? arlier if clinically needed ? Procedure(s): MM tomosynthesis diagnostic BI ?? Accession Number(s): [id number] ? cc: TERI SY NP ? EXAMINATION: [...] DD/ 1045 ? TD/TT: 03/15/24 1105 ? Oxygen Therapy Teacher: ? Procedure Note Jessika Wild - 03/15/2024 Sheron [facility] [address] [place] [address] Mammography Report Signed Patient: Jatin Schmitt#: [id number] : 1990Acct:[id number] Age/Sex: 33 / FADM Date: 03/15/24 Loc: HO.MAMMO Attending Dr: Teri Sy MACHINIST MATE Ordering Physician: TERI SYesults: 2Benign Kam salmeron Date of Service: 03/15/24Follow Up: Mammo at 40 or e arlier if clinically needed Procedure(s): MM tomosynthesis diagnostic BI Accession Number(s): [id number] cc: TERI SY MACHINIST MATE EXAMINATION: MM DIAGNOSTIC DIGITAL BREAST TOMOSYNTHESIS, BILATERAL [...] 03/15/24 1158 DD/ 1045 TD/TT: 03/15/24 1105 Oxygen Therapy Teacher: us Teri GONZALES BI PROCEDURES Edited Result - Final documented in this encounter Visit Diagnoses Not on filedocumented in this encounter Additional Health Concerns Assessment Noted Time PHQ-9 Depression Total Score: 0 06/01/19 9:03 AM EDT documented as of this encounter Care Teams Hand Model Relationship Specialty Start Date End Date Ting Fitzpatrick NP [address] [place] [phone] PCP - General Family Medicine 04/30/23 documented as of this encounter
--- OUTSIDE RECORDS SUMMARY | 2024-04-14 19:44 | XMS_ITS | Encounter Summary ---
Author Organization [employer] Address [address] [place] [address] Care Team Providers Care Straightening Machine Operator Name Role Phone Ting Fitzpatrick NP Primary Care Provider [phone] Reason for Visit * Reason Onset Date Comments recall 03/24/2024 Encounter Details Date Type Department Care Team ([facility] Contact Info) Description 03/24/2024 Telephone [facility] [address] [place] [address] [phone] Paige Sheffield MA recall Social History Tobacco Use Types Packs/Day Years [...] encounter Miscellaneous Notes * Telephone Encounter - Paige Sheffield MA - 03/24/2024 2:11 PM EST T/C- Lpta and Patient made a Physical appointment with Sherley for May. Appointment reminder sent via mail. documented in this encounter Plan of Treatment Upcoming Encounters Date Type Department Care Team (Late st Contact Info) Description 06/06/2024 9:00 AM EDT Office Visit [facility] [address] [place] [address] Ting Fitzpatrick NP [address] [place] [address] documented as of this encounter Visit Diagnoses Not on filedocumented in this encounter Additional Health Concerns Assessment Noted Time PHQ-9 Depression Total Score: 0 06/01/19 9:03 AM EDT documented as of this encounter Care Teams Straightening Machine Operator Relationship Specialty Start Date End Date Ting Fitzpatrick NP [address] [place] [address] PCP - General Family Medicine 04/30/23 documented as of this encounter
== END 2024-04-14 17:47 | disposition home or self-care (01) ==
LOC: HO.HHCLNP 17:46
PROVIDERS: Visit Provider Family Medicine
DX: J06.9 Acute upper respiratory infection, unspecified (principal)
CPT/HCPCS: 87070; 87147

== ENCOUNTER 2024-05-12 11:19 | Outpatient (REF) | payer MEDICAID, SELFPAY ==
--- OUTSIDE RECORDS SUMMARY | 2024-05-12 13:44 | XMS_ITS | Encounter Summary ---
Author Organization [employer] Address [address] [place] [address] Care Team Providers Care Tailings Man Name Role Phone Ting Fitzpatrick NP Primary Care Provider [phone] Reason for Visit * Reason Comments Sore Throat Encounter Details Date Type Department Care Team ([facility] Contact Info) Description 04/14/2024 10:40 AM EST Office Visit [facility] WALK-IN CENTER [address] [place], [place] [phone] Francisco Mcmahon MD [address] [place] [address] Viral URI Social History Tobacco Use Types [...] in this encounter Progress Notes * Francisco cMmahon MD - 04/14/2024 10:40 AM EST Subjective [...] Treatment to date: none 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 Objective Vitals: 04/14/24 1046 BP: 124/81 BP [...] Description 06/06/2024 9:00 AM EDT Office Visit [facility] MEDICINE [address] [place], [place] [phone] Ting Fitzpatrick NP [address] [place] [address] documented as of this encounter Procedures Procedure [...] Routine 04/14/2024 10:49 AM EST Viral URI CULTURE, THROAT Routine 04/14/2024 12:00 AM EST Viral URI documented in this encounter Results * Influenza A (ID NOW Rapid Molecular) (04/14/2024 11:06 AM EST) Influenza A Negative Negative, Indeterminate [facility] Swab 04/14/2024 11:0 6 AM EST us Francisco Mcmahon MD POINT OF CARE TEST ENTER/EDIT OR DERABLES Final Result Performing Organization Address [facility] de Phone Number [facility] [address] [place] [phone] * POCT rapid strep A manually resulted (04/14/2024 11:05 AM EST) [facility] Rapid Strep A Screen Negative Negative, None Detected Swab 04/14/2024 11:0 5 AM EST us Francisco Mcmahon MD POINT OF CARE TEST ENTER/EDIT OR DERABLES Final Result * Influenza B (ID NOW Rapid Molecular) (04/14/2024 11:05 AM EST) [facility] Influenza B Negative Negative, Indeterminate [facility] Swab 04/14/2024 11:0 5 AM EST us Francisco Mcmahon MD POINT OF CARE TEST ENTER/EDIT OR DERABLES Final Result Performing Organization Address [facility] de Phone Number [facility] [address] [place] [phone] * POCT Rapid COVID Ag (04/14/2024 10:49 AM EST) [facility] Rapid COVID Ag Negative Swab 04/14/2024 10:4 9 AM EST us Francisco Mcmahon MD POINT OF CARE TEST ENTER/EDIT OR DERABLES Final Result * Culture, Throat (04/14/2024 12:00 AM EST) Throat Structure of anterior portion of neck / Unknown 04/14/2024 04/14/2024 Comment:Throat Narrative [facility] - 04/16/2024 10:33 AM EST Throat Culture No Group A Beta-hemolytic Streptococci isolated. Specimen Source: Throat us Francisco Mcmahon MD LAB MICROBIOLOGY - GENERAL ORDER SHILPI Final Result Performing Organization Address [facility] Co de Phone Number [facility] [address] [place] [address] [phone] documented in this encounter Visit Diagnoses Diagnosis Viral URI Acute upper respiratory infections of unspecified site documented in this encounter Additional Health Concerns Assessment Noted Time PHQ-9 Depression Total Score: 0 06/01/19 24 9:03 AM EDT documented as of this encounter Care Teams Tailings Man Relationship Specialty Start Date End Date Ting Fitzpatrick NP [address] [place] [address] PCP - General Family Medicine 04/30/23 documented as of this encounter
--- OUTSIDE RECORDS SUMMARY | 2024-05-12 13:44 | XMS_ITS | Clinical Summary ---
Author Organization [employer] Address [address] [facility] [address] [place] [address] Care Team Providers Care Tutoring Manager Name Role Phone Ting Fitzpatrick NP Primary Care Provider [phone] Allergies No known active allergies Medications docusate [...] examination -pt reports has apt w her [employer] 02/03/2024 -today BV panel to eval for [...] EDT): 32 year old followed by outside host and hostess, 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, anticipatory guidance reviewed, open [...] Encounters Date Type Department Care Team Description 05/12/2024 11:00 AM EST [facility] [address] [address] Francisco Mcmahon MD Blepharospasm of both eyes (Primary Dx) 04/14/2024 10:40 AM EST [facility] [address] [address] Francisco Mcmahon MD Viral URI 03/29/2024 Telephone [facility] MEDICINE [address] [place] [phone] Trisha Saavedra, HERMAN Results 03/24/2024 Telephone [facility] MEDICINE [address] [place] [phone] Paige Sheffield [place] recall 03/15/2024 Orders Only [facility] MEDICINE [address] [place] [phone] Teri Sy ANP 02/19/2024 1:00 PM EST Office Visit [facility] WALKIN [address] [address] Teri Sy ANP Breast tenderness in female (Primary Dx); Mass of lower outer quadrant of left breast from Last 3 Months Family History Medical [...] Sign Reading Time Taken Comments Blood Pressure 128/75 05/12/2024 11:01 AM EST Pulse 70 05/12/2024 11:01 AM EST Temperature 36.6 ??C (97.8 ??F) 05/12/2024 11:[address] Respiratory Rate 16 05/12/2024 11:01 AM EST Oxygen Saturation 100% 05/12/2024 11:01 AM EST Inhaled Oxygen Concentration - - Weight 57.2 kg (126 lb 2 oz) 05/12/2024 11:01 AM EST Height 154.9 cm (5' 1 ) 05/12/2024 11:01 AM EST Body Mass Index 23.83 05/12/2024 11:01 AM EST Plan of Treatment Upcoming Encounters Date Type Department Care Team (Late st Contact Info) Description 06/06/2024 9:00 AM EDT Office Visit [facility] MEDICINE [address] [place] [address] Ting Fitzpatrick NP [address] [place] [address] Health Maintenance Due Date Last Done Comments Alcohol/Substance Use Screening 2002 Family Planning (PISQ) 2005 HPV Vaccines (2 - 3-dose series) 12/26/2008 11/28/2008 HPV/Cotest 2020 COVID-19 Vaccine ( season) 2023 02/25/2021, 06/11/2020 Influenza Vaccine (#1) 2023 2, 12/05/2020, 12/31/2018, Additional history exists Depression Screening 05/31/2024 06/01/2023, 06/01/19 24 SDOH Screening 05/31/2024 06/01/2023 Tobacco Screening 05/12/2025 05/12/2024 DTaP/Tdap/Td Vaccines (7 - Td or Tdap) [...] Routine 04/14/2024 12:00 AM EST Viral URI BI US BREAST LIMITED LEFT Urgent 03/15/2024 11:15 AM EST Mass of lower outer quadrant of left breast BI MAMMOGRAM DIAGNOSTIC TOMOSYNTHESIS BILATERAL Routine 03/15/2024 10:45 AM EST PAP SMEAR Routine 02/03/2024 11:08 AM EST HIV 1/2 ANTIGEN/ANTIBODY, FOURTH GENERATION W/RFL Routine 06/25/2021 9:58 AM EDT ZZZ HISTORICAL HIV AB/AG Routine 03/29/2020 10:44 AM EST from Last 3 Months or Most Recently Relevant to Health Maintenance Results * Influenza A (ID NOW Rapid Molecular) (04/14/2024 11:06 AM EST) Influenza A Negative Negative, Indeterminate [facility] Swab 04/14/2024 11:0 6 AM EST us Francisco Mcmahon MD POINT OF CARE TEST ENTER/EDIT OR DERABLES Final Result Performing Organization Address City/[facility]/ZIP Co de Phone Number [facility] [address] [place] [phone] * Influenza B (ID NOW Rapid Molecular) (04/14/2024 11:05 AM EST) [facility] Influenza B Negative Negative, Indeterminate [facility] Swab 04/14/2024 11:0 5 AM EST us Francisco Mcmahon MD POINT OF CARE TEST ENTER/EDIT OR DERABLES Final Result Performing Organization Address [facility] Co de Phone Number [facility] [address] [place] [phone] * POCT rapid strep A manually resulted (04/14/2024 11:05 AM EST) [facility] Rapid Strep A Screen Negative Negative, None Detected Swab 04/14/2024 11:0 5 AM EST us Francisco Mcmahon MD POINT OF CARE TEST ENTER/EDIT OR DERABLES Final Result * POCT Rapid COVID Ag (04/14/2024 10:49 AM EST) [facility] Rapid COVID Ag Negative Swab 04/14/2024 10:4 9 AM EST us Francisco Mcmahon MD POINT OF CARE TEST ENTER/EDIT OR DERABLES Final Result * Culture, Throat (04/14/2024 12:00 AM EST) Throat Structure of anterior portion of neck / Unknown 04/14/2024 04/14/2024 Comment:Throat Narrative [facility] - 04/16/2024 10:33 AM EST Throat Culture No Group A Beta-hemolytic Streptococci isolated. Specimen Source: Throat us Francisco Salome MD LAB MICROBIOLOGY - GENERAL ORDER SHILPI Final Result [facility] [address] [place] [address] [phone] * BI US Breast Limited Left (03/15/2024 11:15 AM EST) Anatomical Region Laterality Modality Breast Left Ultrasound 03/15/2024 11:1 5 AM EST Narrative 03/15/2024 12:00 PM EST ? [facility] [place] ? [address] ?[place] [address] ? Ultrasound Report ? Signed ? Patient: Jose Daniel Shin,Quyen ?MR#: [id number] ?? [id number] ? : 1990 ?Acct:[id number] ? Age/Sex: 33 / F ?ADM Date: 03/15/24 ? Loc: HO.MAMMO ? Attending Dr: Teri Sy NP ? Ordering Physician: TERI SY NP ?? Date of Service: 03/15/24 ?? Procedure(s): US breast LT limited mamm only ?? Accession Number(s): [id number] ? cc: TERI SY NP ? EXAMINATION: [...] DD/ 1115 ? TD/TT: 03/15/24 1145 ? Pediatric Allergist: ? Procedure Note Donalfredointerpreter, Image - 03/15/2024 [place] [facility] [address] [place] [address] Ultrasound Report Signed Patient: Jatin Schmitt#: [id number] : 1990Acct:[id number] Age/Sex: 33 / FADM Date: 03/15/24 Loc: MAMMO Attending Dr: Teri yS NP Ordering Physician: TERI SY NP Date of Service: 03/15/24 Procedure(s): US breast LT limited mamm only Accession Number(s): [id number] cc: TERI SY NP EXAMINATION: MM DIAGNOSTIC [...] 03/15/24 1158 DD/ 1115 TD/TT: 03/15/24 1145 Pediatric Allergist: us Teri Yossi GONZALES US PROCEDURES Edited Result - Final * BI Mammogram Diagnostic Tomosynthesis Bilateral (03/15/2024 10:45 AM EST) Anatomical Region Laterality Modality Breast Bilateral Mammography 03/15/2024 10:4 5 AM EST Narrative 03/15/2024 12:00 PM EST ? [facility] ? [address] [place] [address] ? Mammography Report ? Signed ? Patient: Jose Daniel Melissa,Quyen ?MR#: [id number] ?? [id number] ? : 1990 ?Acct:[id number] ? Age/Sex: 33 / F ?ADM Date: 03/15/24 ? Loc: HO.MAMMO ? Attending Dr: Teri Sy GRADES 9 THROUGH 12 TEACHER ? Ordering Physician: TERI SY NP ?Results: 2Benign Fin ?? dings ? Date of Service: 03/15/24 ?Follow Up: Mammo at 40 or e ?? arlier if clinically needed ? Procedure(s): MM tomosynthesis diagnostic BI ?? Accession Number(s): [id number] ? cc: YOSSI,TERI GONZALES ? EXAMINATION: ?? MM DIAGNOSTIC DIGITAL BREAST [...] DD/ 1045 ? TD/TT: 03/15/24 1105 ? Pediatric Allergist: ? Procedure Note Torri, Image - 03/15/2024 [facility] [address] [place] [address] Mammography Report Signed Patient: Jatin Schmitt#: [id number] : 1990Acct:[id number] Age/Sex: 33 / FADM Date: 03/15/24 Loc: HO.MAMMO Attending Dr: Teri Sy NP Ordering Physician: TERI SY NPResults: 2Benign Kam [place]on Date of Service: 03/15/24Follow Up: Mammo at 40 or e arlier if clinically needed Procedure(s): MM tomosynthesis diagnostic BI Accession Number(s): [id number] cc: TERI SY NP EXAMINATION: MM DIAGNOSTIC [...] 03/15/24 1158 DD/ 1045 TD/TT: 03/15/24 1105 Pediatric Allergist: Teri ARANA IM BI PROCEDURES Edited Result - Final * Pap Smear (02/03/2024 11:08 AM EST) 02/03/2024 11:0 8 AM EST 02/04/2024 8:50 AM EST [facility] - 02/12/2024 11:27 AM EST ----- ------- Name: Quyen Schmitt ? Age/Sex: 33/F ? : 1990 Unit#: [id number] ?? Attend Dr: Adriana Wang CNM ?Re02/03/24 ?Status: DEP REF ? Location: HO.LNP ?Disch: ? ----- ------- SPEC : [id number] ?RECD: 02/04/24 ? STATUS: ??SOUT ? REQ NUM: [id number] ? RIN: 02/03/24 ? SUBM DR: Adriana Wang CNVenrell ? ENTERED: ??02/04/24 ?SP TYPE: Pap Smr ?OTHR DR: Katie De Paz DONOR SERVICES MANAGER ? ORDERED: ??Pap Smear ? Interpretation ?? Satisfactory for evaluation. ?? Negative for intraepithelial lesion or malignancy. ? HPV High Risk: ??Negative ? HPV Genotyping 16: ??Negative ?? HPV Genotyping 18: ??Negative ?Clinical Information LMP: Unknown date Previous PAP test: 2019, HPV mRNA E6/E7 ? Material Received ?? ThinPrep-Cervical Copies To: ?? Adriana Wang CNVernell ?? [facility] ?? [address] ?? [place] [address] ?? [phone] ?? Katie De Paz DONOR SERVICES MANAGER ?? [address] ?? [place] [address] ?? [phone] ----- ------- Signed (signature on file) Jhonatan AMBER Bowen ([facility]) 02/12/24 1127 ? ----- ------- ? END OF REPORT ? us Generic External Data Provider LAB CYTOLOGY ORDE [facility] Final Result [facility] [address] [place] [phone] * HIV 1/2 ANTIGEN/ANTIBODY,FOURTH GENERATION W/RFL (06/25/2021 9:58 AM EDT) [facility] HIV-1/2 ANTIGEN AND ANTIBODIES, 4TH GENERATION W/ REFLEX NON-REACT LIGIA NON-REACT LIGIA [facility] Comment: HIV-1 antigen and HIV-1/HIV-2 [...] ? For additional information please refer to http://education.[employer]/faq/BIG944 (This link is being provided for informational/ educational purposes only.) ? The performance of this assay has not been clinically validated in patients less than 2 years old. ?? 06/25/2021 9:58 AM EDT Molly Butcher GRADES 9 THROUGH 12 TEACHER LAB BLOOD ORDERABLES Final Resu lt Performing Organization Address [facility] Co de Phone Number [facility] [address] * HIV AB/AG (03/29/2020 10:44 AM EST) [facility] HIV AB/AG Nonreactive Nonreactive [facility] Comment: HIV-1 p24 Ag and/or [...] detection of this assay. ?? [employer] HIV Ag/Ab Combo assay result and supplemental assay results should be interpreted in conjunction with the patient's clinical presentation, history and other laboratory results. ??If the results are inconsistent with clinical evidence, additional testing is suggested to confirm the result. Hepatitis B Surface Antigen Negative Negative [facility] Hepatitis C Antibody Nonreactive Nonreactive [facility] Comment: Antibodies to HCV not detected; does not exclude early acute HCV infection. 03/29/2020 10:4 4 AM EST us Historical Provider MD HISTORICAL/NON ORDERABLE LABS Final Result Performing Organization Address [facility] de Phone Number [facility] [address] from Last 3 Months or Most Recently Relevant to Health Maintenance Insurance [facility] C3 Care Teams Tutoring Manager Relationship Specialty Start Date End Date Ting Fitzpatrick NP [address] [place] [phone] PCP - General Family Medicine 04/30/23
--- OUTSIDE RECORDS SUMMARY | 2024-05-12 13:44 | XMS_ITS | Encounter Summary ---
Author Organization [employer] Address [address] [place] [address] Care Team Providers Care Town Clerk Name Role Phone Ting Fitzpatrick NP Primary Care Provider [phone] Encounter Details Date Type Department Care Team (Latest Contact Info) Description 05/12/2024 11:00 AM EST Office Visit [facility] WALK-IN CENTER [address] [place] [address] [phone] Francisco Mcmahon MD [address] [place], [place] [phone] Blepharospasm of both eyes (Primary Dx) Social History Tobacco Use Types Packs/Day Years [...] Mass Index 23.83 05/12/2024 11:01 AM EST documented in this encounter Progress Notes * Francisco Mcmahon MD - 05/12/2024 11:00 AM EST Subjective History was provided by the patient. Quyen Melissa is a 33 y.o. female who presents for evaluation of on-and-off bilateral upper eyelid twitching for 2-3 months. Unsure of any triggers. 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 Denies any significant screen use. Not on any chronic medications. Not on any OTC antihistamine. LMP was 05/04/2024 (using condoms consistently). Eyelids get tired. Minimal discharge at times. Denies pink eyes. Recently was seen for URI 1 month ago (tested negative for COVID-19, Influenza A/B, and Strep). Symptoms precede her recent URI. Denies F/C/N/V/D. Denies any change in vision. Objective Vitals: 05/12/24 1101 BP: 128/75 BP Location: Left arm Patient Position: Sitting BP Cuff Size: Adult Pulse: 70 Resp: 16 Temp: 97.8 ??F (36.6 ??C) TempSrc: Oral SpO2: 100% Weight: 126 lb 2 oz (57.2 kg) Height: 5' 1 (1.549 m) Physical Exam Vitals reviewed. Constitutional: Appearance: Normal appearance. She is normal weight. HENT: Head: Normocephalic and atraumatic. Right Ear: External ear normal. Left Ear: External ear normal. Nose: Nose normal. Mouth/Throat: Mouth: Mucous membranes are dry. Pharynx: Oropharynx is clear. Eyes: General: No scleral icterus. Right eye: No discharge. Left eye: No discharge. Extraocular Movements: Extraocular movements intact. Conjunctiva/sclera: Conjunctivae normal. Pupils: Pupils are equal, round, and reactive to light. Comments: No eyelid edema or erythema Pulmonary: Effort: Pulmonary effort is normal. Musculoskeletal: General: Normal range of motion. Cervical back: Normal range of motion and neck supple. Lymphadenopathy: Cervical: No cervical adenopathy. Skin: General: Skin is warm and dry. Neurological: General: No focal deficit present. Mental Status: She is alert and oriented to person, place, and time. Mental status is at baseline. Cranial Nerves: No cranial nerve deficit. Sensory: No sensory deficit. Motor: No weakness. Coordination: Coordination normal. Gait: Gait normal. Deep Tendon Reflexes: Reflexes normal. Psychiatric: Mood and Affect: Mood normal. Behavior: Behavior normal. Thought Content: Thought content normal. Judgment: Judgment normal. Diagnoses and all orders for this visit: Blepharospasm of both eyes (Primary) - CBC auto differential; Future - Comprehensive Metabolic Panel; Future - AHMET Screen,IFA, with Reflex to Titer and Pattern; Future - Sed Rate by Modified Westergren; Future - RPR (Monitor) with Reflex to Titer; Future - Ceruloplasmin; Future - Vitamin B12/Folate, Serum Panel; Future - Copper; Future Patient [facility] to [facility] due to on-and-off bilateral blepharospasm No clinical evidence of conjunctivitis No clinical evidence of preseptal or septal cellulitis CN 2-12 grossly intact, non-focal neurologic exam States Optometry exam UTD (another one scheduled for 08/2024) Will check CBC, CMP, AHMET, ESR, RPR, Ceruloplasmin, Copper, and Vitamin B12/Folate Encouraged cold compress for her eyes Indications for UC/ER use reviewed Advised to contact the clinic if worsening or persistent symptoms documented in this encounter Plan of Treatment Upcoming Encounters Date Type Department Care Team (Late st Contact Info) Description 06/06/2024 9:00 AM EDT Office Visit [facility] MEDICINE [address] [place], [place] [phone] Ting Fitzpatrick NP [address] [place], [place] [phone] Scheduled Orders Name Type Priority Associated Diagnoses Orde r Schedule CBC auto differential Lab Routine Blepharospasm of both eyes Expected: 05/12/2024 (Approximate), Expires: 05/12/2025 Comprehensive Metabolic Panel Lab Routine Blepharospasm of both eyes Expected: 05/12/2024 (Approximate), Expires: 05/12/2025 AHMET Screen,IFA, with Reflex to Titer and Pattern Lab Routine Blepharospasm of both eyes Expected: 05/12/2024 (Approximate), Expires: 05/12/2025 Sed Rate by Modified Westergren Lab Routine Blepharospasm of both eyes Expected: 05/12/2024, Expires: 05/12/2025 RPR (Monitor) with Reflex to??Titer Lab Routine Blepharospasm of both eyes Expected: 05/12/2024, Expires: 05/12/2025 Ceruloplasmin Lab Routine Blepharospasm of both eyes Expected: 05/12/2024 (Approximate), Expires: 05/12/2025 Vitamin B12/Folate, Serum Panel Lab Routine Blepharospasm of both eyes Expected: 05/12/2024, Expires: 05/12/2025 Copper Lab Routine Blepharospasm of both eyes Expected: 05/12/2024 (Approximate), Expires: 05/12/2025 documented as of this encounter Visit Diagnoses Diagnosis Blepharospasm of both eyes- Primary documented in this encounter Additional Health Concerns Assessment Noted Time PHQ-9 Depression Total Score: 0 06/01/19 9:03 AM EDT documented as of this encounter Care Teams Town Clerk Relationship Specialty Start Date End Date Ting Fitzpatrick NP [address] [place] [address] PCP - General Family Medicine 04/30/23 documented as of this encounter
[2024-05-13 07:47] LABS: Syphilis Screen Nonreactive (Nonreactive)
[2024-05-13 08:06] LABS: HIV AB/AG Nonreactive (Nonreactive); HIV Num 1 0.05 S/CO (0.00-0.99); Hepatitis B Surface Antigen Negative (Negative); ~Hepatitis C Antibody Nonreactive (Nonreactive)
== END 2024-05-12 11:20 | disposition home or self-care (01) ==
LOC: HO.HHCL 11:19
PROVIDERS: Visit Provider Advanced Practice Midwife
DX: Z01.419 Encounter for gynecological examination (general) (routine) without abnormal findings (principal); Z30.09 Encounter for other general counseling and advice on contraception; A60.00 Herpesviral infection of urogenital system, unspecified; K59.00 Constipation, unspecified
CPT/HCPCS: 36415; 86780; 86803; 87340; 87389

== ENCOUNTER 2024-06-29 10:52 | Outpatient (REF) | payer MEDICAID, SELFPAY ==
--- OUTSIDE RECORDS SUMMARY | 2024-06-29 12:57 | XMS_ITS | Clinical Summary ---
Author Organization [employer] Address [address] [facility] [address] [place] [address] Care Team Providers Care Contract Paralegal Name Role Phone Ting Fitzpatrick NP Primary Care Provider [phone] Allergies No known active allergies Medications docusate [...] every 3 hours. 15 g 4 Active acetaminophen (Tylenol Extra Strength) 500 MG tabletIndicatio ns:Sore throat Take 2 tablets (1,000 mg) by mouth every 8 (eight) hours if needed for mild pain for up to 10 days. 30 tablet 5 07/05/19 25 Active Active Problems Problem Noted Date Diagnosed Date Skin tag 06/29/2024 Assessment & Plan (06/29/2024 10:56 AM EDT): Provided education about skin tags and their benign nature Will refer to derm clinic for possible removal and routine skin check as requested by pt Encounter for physical examination 06/29/2024 Assessment & Plan (06/29/2024 10:57 AM EDT): Physical exam wnl today Pt needs tspot for work, ordered today Provided IMM report for work, pt declines flu and covid today For her eye conditions she was referred to a specialist by optometry, plans to f/u soon. 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, 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, anticipatory guidance reviewed, open [...] Encounters Date Type Department Care Team Description 06/29/2024 10:15 AM EDT Office Visit [facility] [address] [place] [address] Zee Hernandez CNP Encounter for physical examination (Primary Dx); Skin tag; Retinal tear of right eye 06/29/2024 Travel 06/24/2024 9:00 AM EDT Office Visit [facility] [address] [place] [address] Ting Fitzpatrick NP Sore throat (Primary Dx) 06/24/2024 Travel 06/22/2024 Patient Outreach [facility] [address] [place] [address] Ting Fitzpatrick NP Pre-visit Planning (SDOH screening completed on 05/26/24) 06/20/2024 11:00 AM EDT Office Visit [facility] [address] [place] [address] Jc, Carol, OD Retinal tear of right eye (Primary Dx); Retina disorder, right; Eyelid myokymia; Hyperopia of both eyes 06/20/2024 Telephone [facility] [address] [place] [address] Ting Fitzpatrick NP Chart Prep 06/20/2024 Travel 05/27/2024 Population Health Risk Score [facility] () Department [address] [place] [phone] Provider, Population Health Generic 05/26/2024 Patient Outreach [facility] [address] [place] [address] Ting Fitzpatrick NP Pre-visit Planning (SDOH Screening negative and Tobacco screening negative) 05/26/2024 Telephone [facility] [address] [place] [phone] Radha Contreras MA Chart Prep 05/12/2024 11:00 AM EST Office Visit [facility] [address] [address] Francisco Mcmahon MD Blepharospasm of both eyes (Primary Dx) 04/14/2024 10:40 AM EST Office Visit [facility] [address] [address] Francisco Mcmahon MD Viral URI from Last 3 Months Immunizations Name Administration Dates Next Due DTaP 09/23/1994, 2,03/30/1991,01/26,1990 HPV 9-Valent 11/28/2008 Hep B, Adolescent or Pediatric 05/15/1997,1996,09/02/1996 Hib (PRP-T) 12/28/1991, 2,01/26/1991,11/18 IPV 09/23/1994, 4,12/28/1991,01/26,1990 Influenza Injectable Quadriv alant Preservative Free IIV4 MDCK 11/19/2021 Influenza injectable quadriv alent IIV4 with preservative 11/30/2017 Influenza injectable quadriv alent preservative free 12/05/2020,12/31/2018 MMR 05/20/2022,05/31/1993,09/21/1991 Meningococcal MCV4P ACYW-135 11/28/2008 TD (adult), 2 Lf tetanus tox oid, preservative free, adsorbed 08/31/2003 Td (adult), 5 Lf tetanus tox oid, preservative free, adsorbed 06/10/2015 Tdap 11/11/2016 Family History Medical History Relation Name Comments [...] Answer Date Recorded Patient Health Questionnaire-9 Score 4 06/29/2024 Patient Health Questionnaire-9 Score 4 06/29/2024 Last PHQ-9: Questionnaire Data Not on file 0 06/29/2024 Housing Stability Answer Date Recorded What is your housing situation today? I have megan grant 06/29/[address] you li ve. Do you have problems with any of the following? Mold 06/29/2024 Food Insecurity Answer Date Recorded Within the past 12 months, y ou worried that your food would run out before you got money to buy more: Sometimes True 2024 Within the past 12 months,th e food you bought just didn't last and you didn't have enough money to get more: Never True 06/29/2024 Transportation Answer Date Recorded In the past [...] Date Recorded Patient Health Questionnaire-2 Score 0 06/29/2024 Internet Access Answer Date Recorded Internet Access Q1 Yes 05/26/2024 Internet Access Q2 Not on file 05/26/2024 Comments Unknown Sex and Gender Information Value Date Recorded Sex Assigned at Female 01/13/2022 10:20 AM EDT Legal Sex Female 10:20 AM EDT Gender Identity Female 01/13/2022 10:20 AM EDT Sexual Orientation Choose not to disclose 2021 10:20 AM EDT Last Filed Vital Signs Vital Sign Reading Time Taken Comments Blood Pressure 122/79 06/29/2024 10:14 AM EDT Pulse 73 06/29/2024 10:14 AM EDT Temperature 36.7 ??C (98.1 ??F) 06/29/2024 10:14 AM E DT Respiratory Rate 18 06/29/2024 10:14 AM EDT Oxygen Saturation 99% 06/29/2024 10:14 AM EDT Inhaled Oxygen Concentration - - Weight 58.1 kg (128 lb) 06/29/2024 10:14 AM EDT Height 154.9 cm (5' 1 ) 06/29/2024 10:14 AM EDT Body Mass Index 24.19 06/29/2024 10:14 AM EDT Plan of Treatment Upcoming Encounters Date Type Department Care Team (Late st Contact Info) Description 12/26/2024 10:30 AM EDT Office Visit [facility] [address] [place] [address] Jc, Carol, OD [address] [place] [address] Health Maintenance Due Date Last Done Comments Alcohol/Substance Use Screening 2002 HPV Vaccines (2 - 3-dose series) 12/26/2008 11/28/2008 HPV/Cotest 2020 COVID-19 Vaccine ( season) 2023 02/25/2021, 06/11/2020 Influenza Vaccine (#1) 2023 , 12/05/2020, 12/31/2018, Additional history exists Tobacco Screening 06/24/2025 06/24/2024 Depression Screening 06/29/2025 06/29/2024, 06/30/19 Family Planning (PISQ) 06/29/2025 06/29/2024 SDOH Screening 06/29/2025 06/29/2024 DTaP/Tdap/Td Vaccines (7 - Td or Tdap) [...] INFLUENZA A (ID NOW RAPID MOLECULAR) Routine 06/24/2024 9:36 AM EDT Sore throat POCT INFLUENZA B (ID NOW RAPID MOLECULAR) Routine 06/24/2024 9:35 AM EDT Sore throat POCT COVID-19 AG GÓMEZ ID NOW Routine 06/24/2024 9:35 AM EDT Sore throat POC GÓMEZ ID NOW STREP A Routine 06/24/2024 9:26 AM EDT Sore throat POCT INFLUENZA A (ID NOW RAPID MOLECULAR) Routine 04/14/2024 11:06 AM EST Viral URI POCT RAPID STREP A Routine 04/14/2024 11 :05 AM EST Viral URI POCT INFLUENZA B (ID NOW RAPID MOLECULAR) Routine 04/14/2024 11:05 AM EST Viral URI POCT RAPID COVID ANTIGEN Routine 04/14/2024 10:49 AM EST Viral URI CULTURE, THROAT Routine 04/14/2024 12:00 AM EST Viral URI PAP SMEAR Routine 02/03/2024 11:08 AM EST HIV 1/2 ANTIGEN/ANTIBODY, FOURTH GENERATION W/RFL Routine 06/25/2021 9:58 AM EDT ZZZ HISTORICAL HIV AB/AG Routine 03/29/2020 10:44 AM EST from Last 3 Months or Most Recently Relevant to Health Maintenance Results * POCT Rapid Influenza A GÓMEZ ID NOW (06/24/2024 9:36 AM EDT) Only the most recent of2 resultswithin the time period is included. Influenza A Negative Negative, Indeterminate [facility] QC Media Lot # [id number] [facility] Lot# Expiration Date [id number] [facility] Swab 06/24/2024 9:36 AM EDT us Ting Fitzpatrick NP POINT OF CARE TEST ENTER/EDIT OR DERABLES Final Result [facility] [address] [place] [address] [phone] * POCT Rapid Influenza B GÓMEZ ID NOW (06/24/2024 9:35 AM EDT) Only the most recent of2 resultswithin the time period is included. [facility] Influenza B Negative Negative, Indeterminate [facility] QC Media Lot # [id number] [facility] Lot# Expiration Date [id number] [facility] Swab 06/24/2024 9:35 AM EDT Ting Fitzpatrick SECURITY SERGEANT POINT OF CARE TEST ENTER/EDIT OR DERABLES Final Result Performing Organization Address [facility] Co de Phone Number [facility] [address] [place] [address] [phone] * POCT Rapid Covid-19 GÓMEZ ID NOW (06/24/2024 9:35 AM EDT) [facility] Coronavirus Antigen PCR Negative Negative, Indeterminate, None Detected, Invalid, Specimen unsatisfactory for evaluation, Weakly Positive QC Media Lot # [id number] Lot# Expiration Date 90,426 Swab 06/24/2024 9:35 AM EDT Ting Fitzpatrick SECURITY SERGEANT POINT OF CARE TEST ENTER/EDIT OR DERABLES Final Result * POCT Rapid Strep A GÓMEZ ID NOW (06/24/2024 9:26 AM EDT) [facility] Rapid Strep A Screen Negative Negative, None Detected QC Media Lot # [id number] Lot# Expiration Date 120,526 Swab 06/24/2024 9:26 AM EDT Ting Fitzpatrick SECURITY SERGEANT POINT OF CARE TEST ENTER/EDIT OR DERABLES Final Result * POCT rapid strep A manually resulted (04/14/2024 11:05 AM EST) Rapid Strep A Screen Negative Negative, None [...] neck / Unknown 04/14/2024 04/14/2024 Comment:Throat Narrative [facility] - 04/16/2024 10:33 AM EST Throat Culture No Group A Beta-hemolytic Streptococci isolated. Specimen Source: Throat us Francisco Mcmahon MD LAB MICROBIOLOGY - GENERAL ORDER SHILPI Final Result Performing Organization Address City/State/[facility] Co de Phone Number [facility] [address] [place] [phone] * Pap Smear (02/03/2024 11:08 AM EST) 02/03/2024 11:0 8 AM EST 02/04/2024 8:50 AM EST Narrative [facility] - 02/12/2024 11:27 AM EST ----- ------- Name: Quyen Schmitt ? Age/Sex: 33/F ? : 1990 Unit#: [id number] ?? Attend Dr: FelipeAdriana CNM ?Re02/03/24 ?Status: DEP REF ? Location: HO.LNP ?Disch: ? ----- ------- SPEC : [id number] ?RECD: 02/04/24 ? STATUS: ??SOUT ? REQ NUM: [id number] ? RIN: 02/03/24-1107 ? SUBM DR: FelipeAdriana CNM ? ENTERED: ??02/04/24 ?SP TYPE: Pap Smr ?OTHR DR: Katie De Paz MASTER DYER ? ORDERED: ??Pap Smear ? Interpretation ?? Satisfactory for evaluation. ?? Negative for intraepithelial lesion or malignancy. ? HPV High Risk: ??Negative ? HPV Genotyping 16: ??Negative ?? HPV Genotyping 18: ??Negative ?Clinical Information LMP: Unknown date Previous PAP test: 2019, HPV mRNA E6/E7 ? Material Received ?? ThinPrep-Cervical Copies To: ?? Stanislaus,Adriana Stanford CESAR ?? [facility] [place] [address] [facility], [address] Floor ?? [place] [address] ?? [phone] ?? Katie De Paz MASTER DYER ?? [address] [facility] ?? [place] ?? [phone] ----- ------- Signed (signature on file) AMBER Laguna (ASCP) 02/12/24 1127 ? ----- ------- ? END OF REPORT ? us Generic External Data Provider LAB CYTOLOGY FRANKLIN ROBLEDO Final Result [facility] [address] [place] [address] [phone] * HIV 1/2 ANTIGEN/ANTIBODY,FOURTH GENERATION W/RFL (06/25/2021 9:58 AM EDT) Pathologist [facility] HIV-1/2 ANTIGEN AND ANTIBODIES, 4TH GENERATION W/ REFLEX NON-REACT LIGIA NON-REACT LIGIA [facility] Comment: HIV-1 antigen and HIV-1/HIV-2 [...] ? For additional information please refer to http://education.[employer]/faq/LUW311 (This link is being provided for informational/ educational purposes only.) ? The performance of this assay has not been clinically validated in patients less than 2 years old. ?? 06/25/2021 9:58 AM EDT us Molly Butcher SECURITY SERGEANT LAB BLOOD ORDERABLES Final Resu lt [facility] [address] * HIV AB/AG (03/29/2020 10:44 AM EST) Pathologist [facility] HIV AB/AG Nonreactive Nonreactive [facility] Comment: HIV-1 p24 Ag and/or [...] of detection of this assay. ?? The [employer] HIV Ag/Ab Combo assay result and supplemental assay results should be interpreted in conjunction with the patient's clinical presentation, history and other laboratory results. ??If the results are inconsistent with clinical evidence, additional testing is suggested to confirm the result. Hepatitis B Surface Antigen Negative Negative [facility] Hepatitis C Antibody Nonreactive Nonreactive [facility] Comment: Antibodies to HCV not detected; does not exclude early acute HCV infection. 03/29/2020 10:4 4 AM EST us Historical Provider HISTORICAL/NON ORDERABLE LABS Final Result [facility] [address] from Last 3 Months or Most Recently Relevant to Health Maintenance Insurance [facility] C3 Care Teams Contract Paralegal Relationship Specialty Start Date End Date Ting Fitzpatrick NP [address] [place] [phone] PCP - General Family Medicine 04/30/23
--- OUTSIDE RECORDS SUMMARY | 2024-06-29 12:57 | XMS_ITS | Encounter Summary ---
Author Organization [employer] Address [address] [facility] [address]t [place] [address] Care Team Providers Care Facing Slitter Name Role Phone Ting Fitzpatrick NP Primary Care Provider [phone] Encounter Details Date Type Department Care Team (Latest Contact Info) Description 06/24/2024 Travel Social History Tobacco Use Types Packs/Day Years [...] Recorded Patient Health Questionnaire-2 Score 0 06/01/2023 Internet Access Answer Date Recorded Internet Access [...] Description 12/26/2024 10:30 AM EDT Office Visit [facility] [address] [place] [address] JcCarol gallegos, OD [address] [place] [address] documented as of this encounter Visit Diagnoses Not on filedocumented in this encounter Additional Health Concerns Assessment Noted Time PHQ-9 Depression Total Score: 0 06/01/19 24 9:03 AM EDT documented as of this encounter Care Teams Facing Slitter Relationship Specialty Start Date End Date Ting Fitzpatrick NP [address] [place] [address] PCP - General Family Medicine 04/30/23 documented as of this encounter
--- OUTSIDE RECORDS SUMMARY | 2024-06-29 12:57 | XMS_ITS | Encounter Summary ---
Author Organization [employer] Address [address] [facility] [address]t [place] [address] Care Team Providers Care Freight Brakeman Name Role Phone Ting Fitzpatrick NP Primary Care Provider Encounter Details Date Type Department Care Team (Latest Contact Info) Description 06/29/2024 Travel Social History Tobacco Use Types Packs/Day [...] is your housing situation today? I have megantabitha grant 06/29/[address] you [...] Description 12/26/2024 10:30 AM EDT Office Visit [facility] [address] [place], [place] [phone] JcCarol gallegos, OD [address] [place] [address] documented as of this encounter Visit Diagnoses Not on filedocumented in this encounter Additional Health Concerns Assessment Noted Time PHQ-9 Depression Total Score: 4 06/30/19 25 10:57 AM EDT documented as of this encounter Care Teams Freight Brakeman Relationship Specialty Start Date End Date Ting Fitzpatrick NP [address] [place] [address] PCP - General Family Medicine 04/30/23 documented as of this encounter
--- OUTSIDE RECORDS SUMMARY | 2024-06-29 12:57 | XMS_ITS | Encounter Summary ---
Author Organization [employer] Address [address] [facility] [address] [place] [address] Care Team Providers Care Wharf Worker Name Role Phone Ting Fitzpatrick NP Primary Care Provider [phone] Reason for Referral * Consultation (Routine) - Authorized Specialty Diagnoses / Procedures Referred By Lydia pathak Referred To Contact Family Medicine Diagnoses Skin tag Zee Hernandez CNP [address] [place] [address] Phone: tel: fax: Referral ID Status Reason Start Date Expiration Date Visits Requested Visits Authorized [id number] Authorized Specialty Services Required 06/29/2024 06/29/2025 1 1 Reason for Visit * Reason Comments Employment Physical Encounter Details Date Type Department Care Team ([facility] Contact Info) Description 06/29/2024 10:15 AM EDT Office Visit [facility] [address] [place] [id number] Zee Hernandez CNP [address] [place] [address] Encounter for physical examination (Primary Dx); Skin tag; Retinal tear of right eye Social History Tobacco Use Types Packs/Day Years [...] Mass Index 24.19 06/29/2024 10:14 AM EDT documented in this encounter Progress Notes * Zee ARLEEN Hernandez - 06/29/2024 10:15 AM EDT Subjective: Quyen Melissa is a 33 y.o. female who presents to the office for a physical exam for work. Per pt she works at [employer] and has been working there for 7 years. PCP GUEVARA Olea. Pt expresses concern regarding brown spots on skin. She denies them changing in size or color over the past few years, they aren't bothersome she just wants to have them looked at. Interim history: Pt see by PCP for sick visit on 06/24. Pt was diagnosed with sore throat and encouraged tylenol for pain relief, all rapid testing in office negative. Pt was seen for routine eye exam on 06/20/24. 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 She was also complaining of eyelid twitching in bot eyes which started 2 months ago.She does not currently wear glasses, reports good vision at distance/near. No other ocular or visual concerns today. Patient Active Problem List Diagnosis Chronic headache disorder Retinal tear of right eye Encounter for health maintenance examination Carpal tunnel syndrome of right wrist Exposure to communicable disease Family history of thyroid disease in father Difficulty in urination HSV (herpes simplex virus) anogenital infection Change in bowel habits Sore throat Skin tag Encounter for physical examination No past surgical history on file. Family History Problem Relation Name Age of Onset Hyperlipidemia Father Hypertension Father Hyperthyroidism Father s/p thyroidectomy, not malignant Social History Living situation: lives at home with daughters Employment/Education: works at [employer] Diet/exercise: Substance use: -alcohol : none -tobacco : none -opioids : none Sexual activity: yes, AMAB monogamous partner Contraception: uses condoms Mental health: No data recorded SHAY-7 Total Score: 7 (06/29/2024 10:55 AM) No LMP recorded. LMP: 06/23/24, regular No Known Allergies Review of Systems Constitutional: Negative for appetite change, chills, diaphoresis, fatigue, fever and unexpected weight change. HENT: Negative. Eyes: Negative for photophobia, pain, discharge, redness, itching and visual disturbance. Eye twitching Respiratory: Negative for apnea, cough, chest tightness, shortness of breath and wheezing. Cardiovascular: Negative for chest pain and palpitations. Gastrointestinal: Negative for abdominal distention, abdominal pain, blood in stool, constipation, diarrhea, nausea and vomiting. Endocrine: Negative. Genitourinary: Negative. Musculoskeletal: Negative. Skin: Negative for pallor. Reporting brown spots on trunk and neck Allergic/Immunologic: Negative. Neurological: Negative for dizziness, syncope, speech difficulty, weakness, light-headedness, numbness and headaches. Hematological: Negative. Psychiatric/Behavioral: Negative for behavioral problems, decreased concentration, dysphoric mood, self-injury and sleep disturbance. The patient is not nervous/anxious. Vitals: 06/29/24 1014 BP: 122/79 BP Location: Left arm Patient Position: Sitting BP Cuff Size: Adult Pulse: 73 Resp: 18 Temp: 98.1 ??F (36.7 ??C) TempSrc: Temporal SpO2: 99% Weight: 128 lb (58.1 kg) Height: 5' 1 (1.549 m) Physical Exam Constitutional: General: She is not in acute distress. Appearance: Normal appearance. She is not ill-appearing. HENT: Head: Normocephalic and atraumatic. Right Ear: Tympanic membrane, ear canal and external ear normal. There is no impacted cerumen. Left Ear: Tympanic membrane, ear canal and external ear normal. There is no impacted cerumen. Nose: No congestion or rhinorrhea. Mouth/Throat: Mouth: Mucous membranes are moist. Pharynx: No oropharyngeal exudate or posterior oropharyngeal erythema. Eyes: General: No scleral icterus. Right eye: No discharge. Left eye: No discharge. Extraocular Movements: Extraocular movements intact. Pupils: Pupils are equal, round, and reactive to light. Cardiovascular: Rate and Rhythm: Normal rate and regular rhythm. Pulses: Normal pulses. Heart sounds: Normal heart sounds. No murmur heard. No friction rub. No gallop. Pulmonary: Effort: Pulmonary effort is normal. No respiratory distress. Breath sounds: Normal breath sounds. No stridor. No wheezing, rhonchi or rales. Chest: Chest wall: No tenderness. Abdominal: General: Abdomen is flat. Bowel sounds are normal. There is no distension. Palpations: Abdomen is soft. There is no mass. Tenderness: There is no abdominal tenderness. There is no guarding. Musculoskeletal: General: Normal range of motion. Cervical back: Normal range of motion and neck supple. No tenderness. Right lower leg: No edema. Left lower leg: No edema. Lymphadenopathy: Cervical: No cervical adenopathy. Skin: General: Skin is warm and dry. Capillary Refill: Capillary refill takes less than 2 seconds. Coloration: Skin is not ashen, cyanotic, jaundiced or pale. Comments: +brown colored freckles diffusely distributed on neck and trunk +multiple 1mm skin tags on neck Neurological: General: No focal deficit present. Mental Status: She is alert and oriented to person, place, and time. Psychiatric: Mood and Affect: Mood normal. Behavior: Behavior normal. Thought Content: Thought content normal. Judgment: Judgment normal. Routine Screening and Health Maintenance Optometry: Yes Dentist: Yes [facility] Routine Cancer Screening Cervical CA: Last pap 02/03/2024 NILM, HPV neg, due 01/2029 Problem List Items Addressed This Visit Retinal Tear of right eye Pt is being followed by optometry last visit 06/20/24, no visual changes at this time. She reports she also is going to be following up with specialist for her eye conditions in near future. Skin tag Current Assessment & Plan Provided education about skin tags and their benign nature Will refer to derm clinic for possible removal and routine skin check as requested by pt Relevant Orders Referral to [facility] Skin Adult Encounter for physical examination - Primary Current Assessment & Plan Physical exam wnl today Low CAD risk, no hx of CVD, non smoker. Age appropriate cancer screening UTD. Pt needs tspot for work, ordered today Provided IMM report for work, pt declines flu and covid today Declines STI testing today, reports she completed last December For her eye conditions she was referred to a specialist by optometry, plans to f/u soon. Pt may RTC prn for new or worsening conditions Relevant Orders T-SPOT??.TB [facility] PRESCRIPTION EYEGLASS MAKER Attestation PRESCRIPTION EYEGLASS MAKER Resident Attestation: Patient was seen and evaluated by Zee Hernandez CNP , in collaboration with GUEVARA Olea who has reviewed my assessment and plan. I, GUEVARA Olea, have reviewed the resident's note and agree with the assessment & plan of care as documented above. documented in this encounter Miscellaneous Notes * Assessment & Plan Note - Zee Hernandez CNP - 06/29/2024 10:56 AM EDT Associated Problem(s): Skin tag Provided education about skin tags and their benign nature Will refer to derm clinic for possible removal and routine skin check as requested by pt * Assessment & Plan Note - Zee Hernandez CNP - 06/29/2024 10:56 AM EDT Associated Problem(s): Encounter for physical examination Physical exam wnl today Pt needs tspot for work, ordered today Provided IMM report for work, pt declines flu and covid today For her eye conditions she was referred to a specialist by optometry, plans to f/u soon. Pt may RTC prn for new or worsening conditions documented in this encounter Plan of Treatment Upcoming Encounters Date Type Department Care Team (Late st Contact Info) Description 12/26/2024 10:30 AM EDT Office Visit [facility] [address] [place] [address] Jc, Carol, OD [address] [place] [address] Scheduled Orders Name Type Priority Associated Diagnoses Orde r Schedule T-SPOT??.TB Lab Routine Encounter for physical examination Expected: 06/29/2024 (Approximate), Expires: 06/29/2025 Scheduled Referrals Name Type Priority Associated Diagnoses Orde r Schedule Referral to [facility] D[facility] Skin Adult Outpatient Referral Routine Skin tag Expected: 06/29/2024 (Approximate), Expires: 06/29/2025 documented as of this encounter Visit Diagnoses Diagnosis Encounter for physical examination- Primary Skin tag Unspecified hypertrophic and atrophic condition of skin Retinal tear of right eye documented in this encounter Additional Health Concerns Assessment Noted Time PHQ-9 Depression Total Score: 4 06/30/19 25 10:57 AM EDT documented as of this encounter Care Teams Wharf Worker Relationship Specialty Start Date End Date Ting Fitzpatrick NP [address] [place] [id number] PCP - General Family Medicine 04/30/23 documented as of this encounter
--- OUTSIDE RECORDS SUMMARY | 2024-06-29 12:57 | XMS_ITS | Encounter Summary ---
Author Organization [employer] Address [address] [place] [address] Care Team Providers Care Insurance Loss Adjuster Name Role Phone Ting Fitzpatrick NP Primary Care Provider [phone] Encounter Details Date Type Department Care Team ([facility] st Contact Info) Description 06/24/2024 9:00 AM EDT Office Visit [facility] [address] [place] [phone] Ting Fitzpatrick NP [address] [place], [place] [phone] Sore throat (Primary Dx) Social History Tobacco Use Types [...] Sign Reading Time Taken Comments Blood Pressure 114/67 06/24/2024 9:22 AM EDT Pulse 68 06/24/2024 9:22 AM EDT Temperature 35.6 ??C (96 ??F) 06/24/2024 9:22 AM EDT Respiratory Rate 20 06/24/2024 9:22 AM EDT Oxygen Saturation 97% 06/24/2024 9:22 AM EDT Inhaled Oxygen Concentration - - Weight 57.7 kg (127 lb 3.2 oz) 06/24/2024 9:22 A M EDT Height 154.9 cm (5' 1 ) 06/24/2024 9:22 AM EDT Body Mass Index 24.03 06/24/2024 9:22 AM EDT documented in this encounter Miscellaneous Notes * Assessment & Plan Note - Ting Fitzpatrick NP - 06/24/2024 9:40 AM EDTAssociated Problem(s): Sore throat Pt with sore throat and headache, no fever, Poct for strep, influenza and covid neg Reassuring breath sounds Supportive measures reviewed, Return to clinic for worsening symptoms, failure to resolve Encouraged hydration and supportive measures documented in this encounter Plan of Treatment Upcoming Encounters Date Type Department Care Team (Late st Contact Info) Description 12/26/2024 10:30 AM EDT Office Visit [facility] [address] [place] [address] Carol Greene, OD [address] [place] [address] documented as of this encounter Procedures Procedure [...] Routine 06/24/2024 9:26 AM EDT Sore throat documented in this encounter Results * POCT Rapid Influenza A GÓMEZ ID NOW (06/24/2024 9:36 AM EDT) Pathologist [facility] Influenza A Negative Negative, Indeterminate [facility] QC Media Lot # [id number] [facility] Lot# Expiration Date [id number] [facility] Swab 06/24/2024 9:36 AM EDT Ting Fitzpatrick NP POINT OF CARE TEST ENTER/EDIT OR DERABLES Final Result [facility] [address] [place] [address] [phone] * POCT Rapid Influenza B GÓMEZ ID NOW (06/24/2024 9:35 AM EDT) Pathologist [facility] Influenza B Negative Negative, Indeterminate [facility] QC Media Lot # [id number] [facility] Lot# Expiration Date [id number] [facility] Swab 06/24/2024 9:35 AM EDT Ting Fitzpatrick SIGN MAKER POINT OF CARE TEST ENTER/EDIT OR DERABLES Final Result [facility] [address] [place] [address] [phone] * POCT Rapid Covid-19 GÓMEZ ID NOW (06/24/2024 9:35 AM EDT) Pathologist [facility] Coronavirus Antigen PCR Negative Negative, Indeterminate, None Detected, Invalid, Specimen unsatisfactory for evaluation, Weakly Positive QC Media Lot # [id number] Lot# Expiration Date [id number] Swab 06/24/2024 9:35 AM EDT Ting Fitzpatrick SIGN MAKER POINT OF CARE TEST ENTER/EDIT OR DERABLES Final Result * POCT Rapid Strep A GÓMEZ ID NOW (06/24/2024 9:26 AM EDT) Pathologist [facility] Rapid Strep A Screen Negative Negative, None Detected QC Media Lot # [id number] Lot# Expiration Date 120,526 Swab 06/24/2024 9:26 AM EDT Ting Fitzpatrick NP POINT OF CARE TEST ENTER/EDIT OR DERABLES Final Result documented in this encounter Visit Diagnoses Diagnosis Sore throat- Primary Acute pharyngitis documented in this encounter Additional Health Concerns Assessment Noted Time PHQ-9 Depression Total Score: 0 06/01/19 24 9:03 AM EDT documented as of this encounter Care Teams Insurance Loss Adjuster Relationship Specialty Start Date End Date Ting Fitzpatrick NP [address] [place] [id number] PCP - General Family Medicine 04/30/23 documented as of this encounter
[2024-07-02 10:08] LABS: TS Negative Control Passed; TS Panel A 0; TS Panel B 0; TS Positive Control Passed; TSpotTB Negative (Negative)
== END 2024-06-29 10:53 | disposition home or self-care (01) ==
LOC: HO.HHCL 10:52
DX: Z00.00 Encounter for general adult medical examination without abnormal findings (principal)
CPT/HCPCS: 36415; 86481

== ENCOUNTER 2024-12-04 14:44 | Emergency (ER) | payer MEDICAID, SELFPAY ==
[2024-12-04 15:12] VITALS: BP 123/57; PULSE 100; RESP 18; TEMP 36.9; O2SAT 100; BMI 23.7
--- NOTE | 2024-12-04 15:12 | ED_ITS ---
HPI - General Adult General Chief complaint: Upper Respiratory Symptoms Stated complaint: coughing, sore throat, headache Related Data Home Medications ?Medication ?Instructions ?Recorded ?Confirmed No Known Home Meds 02/03/24 02/03/24 Allergies Allergy/AdvReac Type Severity Reaction Status Date / Time No Known Allergies (No Known Allergy Verified 12/04/24 15:14 Allergies*) [facility] Past Medical History Medical History (Updated 12/07/24 @ 10:12 by Alyssa Montoya NP) Constipation Severe headache Ovarian cyst Patient denies medical problems Family History Family History Father Thyroid disease Mother Thyroid disease Social History Social History Alcohol intake: never Patient Tobacco Use Status: Never used Tobacco Advance Directives: No Advance Directives Information Provided: No Gender identity: Female Physical Exam ED Vital Signs: BMI result Body Mass Index 23.7 Course Course Course Narrative: This is a rapid medical exam performed by Efraín Montoya NP: Additional HPI, ROS, PE not included below will be deferred to primary provider. Patient is a 34y/o F presenting to the ED with complaint of sore throat, cough, headache x 2 days. Also reporting left sided chest pain which began today. Daughter recently sick with similar symptoms. Plan: EKG, strep and viral swabs Medical Decision Making Lab Data Labs: Lab Results 12/04/24 Range/Units 16:00 COVID-19 (FRANCISCO) Negative (Negative) COVID-19 Clin Com See Note Influenza Type A (LUANN) Negative (Negative) Influenza Type B (LUANN) Negative (Negative) Influenza A & B Note See Note S. pyogenes GrpA LUANN Negative (Negative) Discharge Plan Discharge Clinical Impression: Sore throat Patient Disposition: Left W/O Completing Treatment Prescriptions: No Action No Known Home Meds Discharge Date/Time: 12/04/24 19:30
--- NOTE | 2024-12-04 15:13 | ECG_ITS ---
Test Reason : chest pain Blood Pressure : */* mmHG Vent. Rate : 98 BPM Atrial Rate : 98 BPM P-R Int : 148 ms QRS Dur : 66 ms QT Int : 320 ms P-R-T Axes : 59 38 46 degrees QTcB Int : 408 ms Normal sinus rhythm Normal ECG When compared with ECG of 09-Oct-2021 04:18, No significant change was found Referred By: Alyssa Montoya Electronically Signed By: Michael Blanchard
--- OUTSIDE RECORDS SUMMARY | 2024-12-04 16:06 | XMS_ITS | Encounter Summary ---
Author Organization [employer] Address [address] [place] [address] Care Team Providers Care Warrant Clerk Name Role Phone Ting Fitzpatrick NP Primary Care Provider [phone] Reason for Visit * Reason Comments Med Refill Encounter Details Date Type Department Care Team ([facility] st Contact Info) Description 07/01/2024 Refill [facility] [address] [place], [place] [phone] Almaz Brown DO [address] [place], [place] [phone] Social History Tobacco Use Types Packs/Day Years [...] Care Team (Late st Contact Info) Description 01/27/2025 2:45 PM EST Office Visit [facility] [address] [place] [address] Abraham Alvarado MD [address] [place] [address] documented as of this encounter Visit Diagnoses Not on filedocumented in this encounter Additional Health Concerns Assessment Noted Time PHQ-9 Depression Total Score: 4 06/30/19 25 10:57 AM EDT documented as of this encounter Care Teams Warrant Clerk Relationship Specialty Start Date End Date Ting Fitzpatrick NP [address] [place] [address] PCP - General Family Medicine 04/30/23 documented as of this encounter
--- OUTSIDE RECORDS SUMMARY | 2024-12-04 16:06 | XMS_ITS | Clinical Summary ---
Author Organization [employer] Address [address] [facility] [address] [place] [address] Care Team Providers Care Executive Director Of Marketing Name Role Phone Amari Ting GONZALES Primary Care Provider [phone] Allergies No known active allergies Medications docusate sodium (Colace) 100 MG capsule Take 1 capsule (100 mg) by mouth 2 times daily. 180 capsule 3 12/25/19 24 025 Active hydrocortisone (Proctosol HC) 2.5 % rectal cream Insert into the rectum if needed in the morning and at bedtime for hemorrhoids. 28 g 1 12/25/19 24 Active Additional Information Patient not taking.Reported on 01/12/2024 witch vidya-glycerin (Tucks) pad Apply topically if needed for irritation or hemorrhoids. 100 each 1 12/25/19 24 Active acyclovir (Zovirax) 5 % ointmentIndica tions:Rectal lesion Apply topically 6 (six) times a day. Space applications every 3 hours. 15 g 01/06/20 24 Active ibuprofen 600 MG tablet TAKE 1 TABLET BY MOUTH 3 TIMES DAILY. 90 tablet 11/17/19 25 Active ibuprofen 600 MG tablet Take 1 tablet (600 mg) by mouth 3 times daily. 90 tablet 10/19/19 25 025 Discontinued Active Problems Problem Noted Date Diagnosed Date Metatarsalgia of right foot 10/18/2024 Assessment & Plan (10/18/2024 6:58 PM EDT): Avoid bare foot walking, wear comfortable sneaker with inserts, apply ice, rest, take ibuprofen as needed, call back if not improving Skin tag 06/29/2024 Assessment & Plan (06/29/2024 [...] virus) anogenital infection 01/20/2024 Assessment & Plan (10/18/2024 6:59 PM EDT): Will prescribe valacyclovir, follow up as needed Assessment & Plan (01/31/2024 3:06 PM EST): [...] examination -pt reports has apt w her BISQUE BRUSHER 02/03/2024 -today BV panel to eval for [...] EDT): 32 year old followed by outside nurse obgyn, 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, anticipatory guidance reviewed, open [...] Encounters Date Type Department Care Team Description 11/16/2024 Refill [facility] [address] [place] [address] Chente Fam MD 10/18/2024 5:20 PM EDT Office Visit [facility] [address] [place] [address] Chente Fam MD Metatarsalgia of right foot (Primary Dx); HSV (herpes simplex virus) anogenital infection 10/18/2024 Travel from Last 3 Months Immunizations Immunization Administration Dates Next Due DTaP 09/23/1994, 2,03/30/1991,01/26,1990 [...] Q2 Not on file 05/26/2024 Comments Unknown Intention Date Recorded No desire to become (finding) 0 06/29/2024 Sex and Gender Information Value Date Recorded Sex Assigned at Female 01/13/2022 10:20 AM EDT Legal Sex Female 10:20 AM EDT Gender Identity Female 01/13/2022 10:20 AM EDT Sexual Orientation Choose not to disclose 2021 10:20 AM EDT Last Filed Vital Signs Vital Sign Reading Time Taken Comments Blood Pressure 106/71 10/18/2024 4:47 PM EDT Pulse 84 10/18/2024 4:47 PM EDT Temperature 36.8 C (98.2 F) 10/18/2024 4:47 PM EDT Respiratory Rate 20 10/18/2024 4:47 PM EDT Oxygen Saturation 97% 10/18/2024 4:47 PM EDT Inhaled Oxygen Concentration - - Weight 57.2 kg (126 lb 3.2 oz) 10/18/2024 4:47 P M EDT Height 154.9 cm (5' 1 ) 10/18/2024 4:47 PM EDT Body Mass Index 23.85 10/18/2024 4:47 PM EDT Plan of Treatment Upcoming Encounters Date Type Department Care Team (Late st Contact Info) Description 01/27/2025 2:45 PM EST Office Visit [facility] [address] [place] [address] Abraham Alvarado MD [address] [place] [address] Health Maintenance Due Date Last Done Comments Alcohol/Substance Use Screening 2002 HPV Vaccines (2 - 3-dose series) 12/26/2008 11/28/2008 COVID-19 Vaccine ( season) 2024 02/25/2021, 06/11/2020 Influenza Vaccine (#1) 2024 , 12/05/2020, 12/31/2018, Additional history exists Depression Screening 06/29/2025 06/29/2024, 06/30/19 25 Disability Screening 06/29/2025 06/29/2024 Family Planning (PISQ) 06/29/2025 06/29/2024 SDOH Screening 06/29/2025 06/29/2024 Tobacco Screening 10/18/2025 10/18/2024 DTaP/Tdap/Td Vaccines (7 - Td or Tdap) 11/11/2026 11/11/2016, 06/10/2015, 08/31/2003, Additional history exists Cervical Cancer Screening 02/02/2029 HPV/Cotest 02/02/2029 Pap Smear 02/02/2029 02/03/2024 Zoster Vaccines (1 of 2) 2040 [...] on patient's age to complete this topic Meningococcal B Vaccine Aged Out No l onger eligible based on patient's age to complete this topic Pneumococcal Vaccine: Pediatrics (0 to 5 Years) and At-Risk Patients (6 to 49) Years Aged Out No longer eligible based on patient's age to complete this topic RSV under 20 months Aged Out No longe r eligible based on patient's age to complete this topic Rotavirus Vaccines Aged Out No longer eligible based on patient's age to complete this topic Procedures Procedure Name Priority Date/Time Associated Diagnosis Comments PAP SMEAR Routine 02/03/2024 11:08 AM EST HIV 1/2 ANTIGEN/ANTIBODY, FOURTH GENERATION W/RFL Routine 06/25/2021 9:58 AM EDT [facility] HISTORICAL HIV AB/AG Routine 03/29/2020 10:44 AM EST from Last 3 Months or Most Recently Relevant to Health Maintenance Results * Pap Smear (02/03/2024 11:08 AM EST) 02/03/2024 11:0 8 AM EST 02/04/2024 8:50 AM EST [facility] - 02/12/2024 11:27 AM EST ----- ------- Name: Quyen Schmitt Age/Sex: 33/F : 1990 Unit#: [id number] Attend Dr: Adriana Wang CNM Re02/03/24 Status: DEP [facility] Disch: ----- ------- SPEC : [id number] RECD: 02/04/24 STATUS: SWEETIE MARRERO NUM: [id number] RIN: 02/03/[address] [facility] [address]: Adriana Wang CNM ENTERED: 02/04/24 SP TYPE: Pap Smr OTHR DR: Katie De Paz ORDERED: Pap Smear Interpretation Satisfactory for evaluation. Negative for intraepithelial lesion or malignancy. HPV High Risk: Negative HPV Genotyping 16: Negative HPV Genotyping 18: Negative Clinical Information LMP: Unknown date Previous PAP test: 2019, HPV mRNA E6/E7 Material Received ThinPrep-Cervical Copies To: Adriana Wang CNM [facility] [address] [facility]rd [place] [address] Katie De Paz [facility] [address] [place] [address] ----- ------- Signed (signature on file) AMBER Laguna (ASCP) 02/12/24 1127 ----- ------- END OF REPORT Generic External Data Provider LAB CYTOLOGY FRANKLIN ROBLEDO Final Result Performing Organization Address City/[facility]/ZIP Co de Phone Number [facility] [address] [place] [address] [phone] * HIV 1/2 ANTIGEN/ANTIBODY,FOURTH GENERATION W/RFL (06/25/2021 9:58 AM EDT) HIV-1/2 ANTIGEN AND ANTIBODIES, 4TH GENERATION W/ REFLEX NON-REACT LIGIA NON-REACT LIGIA [facility] Comment: HIV-1 antigen and HIV-1/HIV-2 antibodies were not detected. There is no laboratory evidence of HIV infection. PLEASE NOTE: This information has been disclosed to you from records whose confidentiality may be protected by state law. If your state requires such protection, then the state law prohibits you from making any further disclosure of the information without the specific written consent of the person to whom it pertains, or as otherwise permitted by law. A general authorization for the release of medical or other information is NOT sufficient for this purpose. For additional information please refer to http://education.Passman/faq/RBY348 (This link is being provided for informational/ educational purposes only.) The performance of this assay has not been clinically validated in patients less than 2 years old. 06/25/2021 9:58 AM EDT Molly Butcher SALES MANAGER [employer] LAB BLOOD ORDERABLES Final Resu lt Performing Organization Address City/[facility]/ZIP Co de Phone Number [facility] [address] * HIV AB/AG (03/29/2020 10:44 AM EST) HIV AB/AG Nonreactive Nonreactive [facility] Comment: HIV-1 p24 Ag and/or HIV-1/HIV-2 Ab not detected. A test result that is nonreactive does not exclude the possibility of exposure to or infection with HIV-1 and/or HIV-2. Nonreactive results in this assay for individuals with prior exposure to HIV-1 and/or HIV-2 may be due to antigen and antibody levels that are below the limit of detection of this assay. [employer] HIV Ag/Ab Combo assay result and supplemental assay results should be interpreted in conjunction with the patient's clinical presentation, history and other laboratory results. If the results are inconsistent with clinical evidence, additional testing is suggested to confirm the result. Hepatitis B Surface Antigen Negative Negative [facility] Hepatitis C Antibody Nonreactive Nonreactive [facility] Comment: Antibodies to HCV not detected; does not exclude early acute HCV infection. 03/29/2020 10:4 4 AM EST us Historical Provider HISTORICAL/NON ORDERABLE LABS Final Result Performing Organization Address City/State/[facility] Co de Phone Number [facility] [address] from Last 3 Months or Most Recently Relevant to Health Maintenance Insurance [facility] ADRYAN Allred [id number] [facility] [employer] [place] Allred [id number] [employer] [place] [id number] Care Teams Executive Director Of Marketing Relationship Specialty Start Date End Date Ting Fitzpatrick NP [address] [place] [phone] PCP - General Family Medicine 04/30/23
--- OUTSIDE RECORDS SUMMARY | 2024-12-04 16:06 | XMS_ITS | Encounter Summary ---
Author Organization [employer] Address [address] [facility] [address] [place] [address] Care Team Providers Care High Tension Tester Name Role Phone Ting Fitzpatrick NP Primary Care Provider [phone] Reason for Visit * Reason Comments Med Refill Encounter Details Date Type Department Care Team ([facility] st Contact Info) Description 07/22/2024 Refill [facility] [address] [place], [place] [phone] Almaz Brown DO [address] [place], [place] [phone] Social History Tobacco Use Types Packs/Day Years [...] Description 01/27/2025 2:45 PM EST Office Visit [facility] [address] [place] [address] Abraham Alvarado MD [address] [place] [address] documented as of this encounter Visit Diagnoses Not on filedocumented in this encounter Additional Health Concerns Assessment Noted Time PHQ-9 Depression Total Score: 4 06/30/19 25 10:57 AM EDT documented as of this encounter Care Teams High Tension Tester Relationship Specialty Start Date End Date Ting Fitzpatrick NP [address] [place] [address] PCP - General Family Medicine 04/30/23 documented as of this encounter
[2024-12-04 16:18] LABS: IDNOW Serial# 152EDE1D; Strep A Nucleic Acid Negative (Negative)
[2024-12-04 16:22] LABS: COVID-19 Test Negative (Negative); IDNOW Serial# 16C4AD1C
[2024-12-04 16:36] LABS: IDNOW Serial# 152EDE1D; Influenza B2 Negative (Negative)
== END 2024-12-04 19:30 | disposition left against medical advice (07) ==
PROVIDERS: Registered Nurse Emergency; Emergency Provider Emergency Medicine
DX: J02.9 Acute pharyngitis, unspecified (principal); R05.9 Cough, unspecified; R51.9 Headache, unspecified; R07.89 Other chest pain; Z79.899 Other long term (current) drug therapy; Z11.52 Encounter for screening for COVID-19
CPT/HCPCS: 87502; 87635; 87651; 93005; 99283

== ENCOUNTER → 2024-12-04 15:13 | Outpatient (BNV) | payer MEDICAID, SELFPAY | PROVIDERS: Emergency Provider Emergency Medicine; Visit Provider Internal Medicine Cardiovascular Disease | DX: R07.89 Other chest pain (principal) | CPT/HCPCS: 93010 ==

== ENCOUNTER 2025-02-25 23:31 | Emergency (ER) | payer MEDICAID, SELFPAY ==
[2025-02-25 23:39] VITALS: BP 115/67; PULSE 72; RESP 18; TEMP 36.1; O2SAT 100; BMI 24.0
--- OUTSIDE RECORDS SUMMARY | 2025-02-26 01:42 | XMS_ITS | Encounter Summary ---
Author Organization [employer] Address [address] [facility] [address] [place] [address] Care Team Providers Care Computer Systems Security Administrator Name Role Phone Ting Fitzpatrick NP Primary Care Provider [phone] Reason for Visit * Reason Comments Med Refill Encounter Details Date Type Department Care Team ([facility] st Contact Info) Description 07/01/2024 Refill [facility] [address] [place], [place] [phone] Almaz Brown DO [address] [place], [place] [phone] Social History Tobacco Use Types Packs/Day Years [...] Care Team (Late st Contact Info) Description 06/09/2025 3:30 PM EDT Office Visit [facility] [address] [place] [address] Abraham Alvarado MD [address] [place] [address] 06/27/2025 3:00 PM EDT Office Visit [facility] [address] [place] [address] Jc, Carol, OD [address] [place] [address] documented as of this encounter Visit Diagnoses Not on filedocumented in this encounter Additional Health Concerns Assessment Noted Time PHQ-9 Depression Total Score: 4 06/30/19 25 10:57 AM EDT documented as of this encounter Care Teams Computer Systems Security Administrator Relationship Specialty Start Date End Date Ting Fitzpatrick NP [address] [place] [address] PCP - General Family Medicine 04/30/23 documented as of this encounter
--- OUTSIDE RECORDS SUMMARY | 2025-02-26 01:42 | XMS_ITS | Encounter Summary ---
Author Organization [employer] Address [address] [facility] [address] [place] [address] Care Team Providers Care Milk Tester Name Role Phone Ting Fitzpatrick NP Primary Care Provider [phone] Reason for Visit * Reason Comments Med Refill Encounter Details Date Type Department Care Team ([facility] st Contact Info) Description 07/22/2024 Refill [facility] [address] [place], [place] [phone] Almaz Brown DO [address] [place], [place] [phone] Social History Tobacco Use Types Packs/Day Years [...] Description 06/09/2025 3:30 PM EDT Office Visit [facility] [address] [place] [address] Abraham Alvarado MD [address] [place] [address] 06/27/2025 3:00 PM EDT Office Visit [facility] [address] [place] [address] Jc, Carol, OD [address] [place] [address] documented as of this encounter Visit Diagnoses Not on filedocumented in this encounter Additional Health Concerns Assessment Noted Time PHQ-9 Depression Total Score: 4 06/30/19 25 10:57 AM EDT documented as of this encounter Care Teams Milk Tester Relationship Specialty Start Date End Date Ting Fitzpatrick NP [address] [place] [address] PCP - General Family Medicine 04/30/23 documented as of this encounter
--- OUTSIDE RECORDS SUMMARY | 2025-02-26 01:42 | XMS_ITS | Clinical Summary ---
Author Organization [employer] Address [address] [facility] 7t [place] [address] Care Team Providers Care Data Center Operator Name Role Phone Ting Fitzpatrick NP Primary Care Provider [phone] Allergies No known active allergies Medications hydrocortisone (Proctosol HC) 2.5 % rectal cream [...] 3 hours. 15 g 01/06/20 24 Active fluticasone (Flonase) 50 MCG/ACT nasal sprayIndicatio ns:Viral URI Administer 1 spray into each nostril Once per day. Shake gently. Before first use, prime pump. After use, clean tip and replace cap. 16 g 12 01/11/20 25 026 Active loratadine (Claritin) 10 MG tabletIndicati ons:Viral URI Take 1 tablet (10 mg) by mouth Once per day. 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 -today BV panel to eval for [...] EDT): 32 year old followed by outside on air announcer, 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, anticipatory guidance reviewed, open [...] Encounters Date Type Department Care Team Description 02/20/2025 Refill [facility] [address] [place] [address] Ting Fitzpatrick NP 02/06/2025 Travel 01/26/2025 Telephone [facility] MEDICINE [address] [place] [address] Ting Fitzpatrick NP Appointment Request 01/23/2025 Refill [facility] WALK-IN [address] [address] Ting Fitzpatrick NP 01/10/2025 5:20 PM EDT Office Visit [facility] WALK-IN [address] [address] Zee Hernandez CNP Viral URI (Primary Dx); Sore throat 01/10/2025 Travel 12/21/2024 Refill [facility] [address] [address] Ting Fitzpatrick NP 12/04/2024 Orders Only GENERIC EXTERNAL DATA DEPARTMENT Provider, Generic External Data from Last 3 Months Immunizations Immunization Administration [...] Sign Reading Time Taken Comments Blood Pressure 112/71 01/10/2025 5:15 PM EDT Pulse 79 01/10/2025 5:15 PM EDT Temperature 37 C (98.6 F) 01/10/2025 5:15 PM EDT Respiratory Rate 18 01/10/2025 5:15 PM EDT Oxygen Saturation 99% 01/10/2025 5:15 PM EDT Inhaled Oxygen Concentration - - Weight 59.1 kg (130 lb 3.2 oz) 01/10/2025 5:15 P M EDT Height 154.9 cm (5' 1 ) 01/10/2025 5:15 PM EDT Body Mass Index 24.6 01/10/2025 5:15 PM EDT Plan of Treatment Upcoming Encounters Date Type Department Care Team (Late st Contact Info) Description 06/09/2025 3:30 PM EDT Office Visit [facility] MEDICINE [address] [place] [address] Abraham Alvarado MD [address] [place] [address] 06/27/2025 3:00 PM EDT Office Visit [facility] OPTOMETRY [address] [place] [address] Cj, Carol, OD [address] [place] [address] Health Maintenance Due Date Last Done Comments Alcohol/Substance Use Screening 2002 HPV Vaccines (2 - 3-dose series) 12/26/2008 11/28/2008 COVID-19 Vaccine ( season) 2024 02/25/2021, 06/11/2020 Influenza Vaccine (#1) 2024 2, 12/05/2020, 12/31/2018, Additional history exists Depression [...] Name Priority Date/Time Associated Diagnosis Comments POCT COVID-19 AG GÓMEZ ID NOW Routine 01/10/2025 5:26 PM EDT Sore throat POCT INFLUENZA B (ID NOW RAPID MOLECULAR) Routine 01/10/2025 5:24 PM EDT Sore throat POCT INFLUENZA A (ID NOW RAPID MOLECULAR) Routine 01/10/2025 5:24 PM EDT Sore throat POC GÓMEZ ID NOW STREP A Routine 01/10/2025 5:20 PM EDT Sore throat COVID-19 ID NOW (GÓMEZ) Routine 12/04/2024 4:00 PM EDT INFLUENZA A B2 ID NOW (GÓMEZ) Routine 12/04/2024 4:00 PM EDT STREP A NUCLEIC ACID Routine 12/04/2024 4:00 PM EDT PAP SMEAR Routine 02/03/2024 11:08 AM EST HIV 1/2 ANTIGEN/ANTIBODY, FOURTH GENERATION W/RFL Routine 06/25/2021 9:58 AM EDT ZZZ HISTORICAL HIV AB/AG Routine 03/29/2020 10:44 AM EST from Last 3 Months or Most Recently Relevant to Health Maintenance Results * POCT Rapid Covid-19 GÓMEZ ID NOW (01/10/2025 5:26 PM EDT) Pathologist [facility] Coronavirus Antigen PCR Negative Negative, Indeterminate, None Detected, Invalid, Specimen unsatisfactory for evaluation, Weakly Positive, 2+ QC Media Lot # [id number] Lot# Expiration Date [id number] Swab 01/10/2025 5:26 PM EDT [facility] POINT OF CARE TEST ENTER/ EDIT ORDERABLES Final Result * POCT Rapid Influenza B GÓMEZ ID NOW (01/10/2025 5:24 PM EDT) Pathologist [facility] Influenza B Negative Negative, Indeterminate [facility] QC Media Lot # [id number] [facility] Lot# Expiration Date [facility] Swab 01/10/2025 5:24 PM EDT Result [facility] POINT OF CARE TEST ENTER/ EDIT ORDERABLES Final Result Performing Organization Address [facility] de Phone Number [facility] [address] [place] [address] [phone] * POCT Rapid Influenza A GÓMEZ ID NOW (01/10/2025 5:24 PM EDT) [facility] Influenza A Negative Negative, Indeterminate [facility] QC Media Lot # [id number] [facility] Lot# Expiration Date [facility] Swab 01/10/2025 5:24 PM EDT Result [facility] POINT OF CARE TEST ENTER/ EDIT ORDERABLES Final Result Performing Organization Address [facility] Co de Phone Number [facility] [address] [place] [address] [phone] * POCT Rapid Strep A GÓMEZ ID NOW (01/10/2025 5:20 PM EDT) [facility] Rapid Strep A Screen Negative Negative, None Detected QC Media Lot # [id number] Lot# Expiration Date Swab 01/10/2025 5:20 PM EDT Result [facility] POINT OF CARE TEST ENTER/ EDIT ORDERABLES Final Result * Influenza A B2 ID NOW (Gómez) (12/04/2024 4:00 PM EDT) Pathologist [facility] IDNOW SERIAL# [id number] [facility] Influenza A Negative Negative [facility] Influenza B2 Negative Negative [facility] Influenza A B2 Note See Note [facility] Comment:The Gómez ID NOW In fluenza A B2 test is used for thequalitative detection of influenza A and B from patientswith signs and symptoms of respiratory infection.Negative results do not preclude influenza virus infectionand should not be used as the sole basis for diagnosis,treatment or other patient management decisions.There is a risk of false negative results due to thepresence of variants in the viral targets of the assay, lowlevels of virus in the specimen and co- infection withRespiratory Syncytial Virus. 12/04/2024 4:00 PM EDT 12/04/2024 4:07 PM EDT Generic External Data Provider LAB MICROBIOLOGY - GENERAL ORDERABLES Final Result Performing Organization Address [facility] Co de Phone Number [facility] [address] [place] [phone] * Strep A Nucleic Acid (12/04/2024 4:00 PM EDT) IDNO SERIAL# [id number] [facility] Strep A Nucleic Acid Negative Negative [facility] Comment:All test results mus t be correlated with clinical findings.This test has not been evaluated for monitoring treatment ofinfection.Additional follow-up testing using the culture method isrequired if the result is negative and clinical symptomspersist, or in the event of an acute rheumatic feveroutbreak. 12/04/2024 4:00 PM EDT 12/04/2024 4:07 PM EDT Generic External Data Provider LAB MICROBIOLOGY - GENERAL ORDERABLES Final Result Performing Organization Address [facility] Co de Phone Number [facility] [address] [place] [address] [phone] * COVID-19 ID NOW (GÓMEZ) (12/04/2024 4:00 PM EDT) IDNOW SERIAL# [id number] [facility] COVID-19 TEST Negative Negative [facility] COVID-19 NOTE See Note [facility] Comment: Results are for the identification of SARS-CoV2 RNA. TheSARS-CoV2 RNA is generally detectable in respiratory samplesduring the acute phase of infection. Positive results areindicative of the presence of SARS-CoV-2 RNA; clinicalcorrelation with patient history and other diagnosticinformation is necessary to determine patient infectionstatus. Positive results do not rule out bacterial infectionor co- infection with other viruses.Testing facilities within the [place] and [facility] are required to report all positive results tothe appropriate public health authorities.Negative results should be treated as presumptive and, ifinconsistent with clinical signs and symptoms or necessaryfor patient management, should be tested with differentauthorized or cleared molecular tests. Negative results donot preclude SARS-CoV2 RNA infection and should not be usedas the sole basis for patient management decisions. Negativeresults should be considered in the context of a patient'srecent exposures, history and the presence of clinical signsand symptoms consistent with COVID-19.This test has been authorized by the FDA under an EmergencyUse Authorization (EUA) for use by authorized laboratories.Testing performed on the WeTag NOW utilizing NAAT. 12/04/2024 4:00 PM EDT 12/04/2024 4:07 PM EDT us Generic External Data Provider LAB MOLECULAR ERMA GNOSTICS ORDERABLES Final Result [facility] [address] [place] [phone] * Pap Smear (02/03/2024 11:08 AM EST) 02/03/2024 11:0 8 AM EST 02/04/2024 8:50 AM EST Narrative [facility] - 02/12/2024 11:27 AM EST ----- ------- Name: Quyen Schmitt Age/Sex: 33/F : 1990 Unit#: [id number] Attend Dr: Adriana Wang CNM Re02/03/24 Status: DEP REF Location: [facility] Disch: ----- ------- SPEC : [id number] RECD: 02/04/24 STATUS: SWEETIE MARRERO NUM: [id number] RIN: 02/03/24-[address] [facility] [address]: Adriana Wang CNM ENTERED: 02/04/24 SP TYPE: Pap Smr OTHR DR: Katie De Paz ORDERED: Pap Smear Interpretation Satisfactory for evaluation. Negative for intraepithelial lesion or malignancy. HPV High Risk: Negative HPV Genotyping 16: Negative HPV Genotyping 18: Negative Clinical Information LMP: Unknown date Previous PAP test: 2019, HPV mRNA E6/E7 Material Received ThinPrep-Cervical Copies To: Adriana Wang CNM [facility] [address] [facility], 3rd [place] [address] Katie De Paz [facility] [address] [place] [address] ----- ------- Signed (signature on file) AMBER Laguna (ASCP) 02/12/24 1127 ----- ------- END OF REPORT Generic External Data Provider LAB CYTOLOGY ORDE RABMARILYN Final Result Performing Organization Address [facility]/ZIP Co de Phone Number [facility] [address] [place] [address] [phone] * HIV 1/2 ANTIGEN/ANTIBODY,FOURTH GENERATION W/RFL (06/25/2021 9:58 AM EDT) Pathologist [facility] HIV-1/2 ANTIGEN AND ANTIBODIES, 4TH GENERATION W/ REFLEX NON-REACT LIGIA NON-REACT LIGIA [facility] Comment: HIV-1 antigen and HIV-1/HIV-2 [...] purpose. For additional information please refer to http://education.[employer]/faq/QTQ520 (This link is being provided for informational/ educational purposes only.) The performance of this assay has not been clinically validated in patients less than 2 years old. 06/25/2021 9:58 AM EDT Molly Butcher FIRE PREVENTION RESEARCH ENGINEER LAB BLOOD ORDERABLES Final Resu lt Performing Organization Address [facility]/ZIP Co de Phone Number [facility] [address] * HIV AB/AG (03/29/2020 10:44 AM EST) Pathologist [facility] HIV AB/AG Nonreactive Nonreactive [facility] Comment: HIV-1 p24 Ag and/or [...] limit of detection of this assay. The Gómez Harmonic Analyst HIV Ag/Ab Combo assay result and supplemental assay results should be interpreted in conjunction with the patient's clinical presentation, history and other laboratory results. If the results are inconsistent with clinical evidence, additional testing is suggested to confirm the result. Hepatitis B Surface Antigen Negative Negative [facility] Hepatitis C Antibody Nonreactive Nonreactive [facility] Comment: Antibodies to HCV not detected; does not exclude early acute HCV infection. 03/29/2020 10:4 4 AM EST us Historical Provider HISTORICAL/NON ORDERABLE LABS Final Result [facility] [address] from Last 3 Months or Most Recently Relevant to Health Maintenance Insurance [facility] C3 Care Teams Data Center Operator Relationship Specialty Start Date End Date Ting Fitzpatrick NP [address] [place] [phone] PCP - General Family Medicine 04/30/23
--- OUTSIDE RECORDS SUMMARY | 2025-02-26 01:42 | XMS_ITS | Encounter Summary ---
Author Organization [employer] Address [address] [facility] [address] [place] [address] Care Team Providers Care Special Forces Warrant Officer Name Role Phone Ting Fitzpatrick CASE SPECIALIST Primary Care Provider [phone] Reason for Visit * Reason Comments Med Refill Encounter Details Date Type Department Care Team ([facility] st Contact Info) Description 02/20/2025 Refill [facility] [address] [place] [phone] Ting Fitzpatrick NP [address] [place] [address] Social History Tobacco Use Types Packs/Day Years [...] your housing situation today? I have megan sing 06/29/[address] you li [...] Description 06/09/2025 3:30 PM EDT Office Visit [facility] MEDIC[facility] [address] [place] [address] Abraham Alvarado MD [address] [place] [address] 06/27/2025 3:00 PM EDT Office Visit [facility] OPTOMETRY [address] [place] [address] Jc, Carol, OD [address] [place] [address] documented as of this encounter Visit Diagnoses Not on filedocumented in this encounter Additional Health Concerns Assessment Noted Time PHQ-9 Depression Total Score: 4 06/30/19 25 10:57 AM EDT documented as of this encounter Care Teams Special Forces Warrant Officer Relationship Specialty Start Date End Date Ting Fitzpatrick NP [address] [place] [address] PCP - General Family Medicine 04/30/23 documented as of this encounter
--- OUTSIDE RECORDS SUMMARY | 2025-02-26 01:42 | XMS_ITS | Encounter Summary ---
Author Organization [employer] Address [address] [facility] 7t [place] [address] Care Team Providers Care Commercial Loan Coordinator Name Role Phone Ting Fitzpatrick KARATE BLACK BELT Primary Care Provider [phone] Reason for Visit * Reason Onset Date Comments Appointment Request 01/26/2025 Encounter Details Date Type Department Care Team ([facility] Contact Info) Description 01/26/[address] [facility] MEDICINE [address] [place] [address] Ting Fitzpatrick NP [address] [place] [address] Appointment Request Social History Tobacco Use Types Packs/Day Years [...] encounter Miscellaneous Notes * Telephone Encounter - Frank Diez - 01/26/2025 1:23 PM EST Tc from pt requesting to reschedule apt that was scheduled on 01/27 Contact pt at [phone] documented in this encounter Plan of Treatment Upcoming Encounters Date Type Department Care Team (Late st Contact Info) Description 06/09/2025 3:30 PM EDT Office Visit [facility] MEDICINE [address] [place] [address] Abarham Alvarado MD [address] [place] [address] 06/27/2025 3:00 PM EDT Office Visit [facility] OPTOMETRY [address] [place] [address] Carol Greene, STACEY [address] [place] [address] documented as of this encounter Visit Diagnoses Not on filedocumented in this encounter Additional Health Concerns Assessment Noted Time PHQ-9 Depression Total Score: 4 06/30/19 25 10:57 AM EDT documented as of this encounter Care Teams Commercial Loan Coordinator Relationship Specialty Start Date End Date Ting Fitzpatrick NP [address] [place] [address] PCP - General Family Medicine 04/30/23 documented as of this encounter
[2025-02-26 02:38] LABS: IDNOW Serial# 6674DD1D; Strep A Nucleic Acid Negative (Negative)
--- NOTE | 2025-02-26 03:04 | PC.NURSE ---
medicated per mar.
--- NOTE | 2025-02-26 03:05 | ED_ITS ---
HPI - General Adult General Chief complaint: General Medical Stated complaint: swollen jaw, unsure if dental Time Seen by Provider: 02/26/25 02:08 Source: patient Limitations: no limitations History of Present Illness ED Provider: Heidi Ibarra PA-C HPI narrative: 34-year-old female presents with multiple complaints. Patient states she has developed left-sided neck pain inferior to the jaw that radiates to the ear. Denies ear pain, dental pain or sore throat. Denies swelling inferior to the jawline, trismus or drooling. Denies fever. Related Data Home Medications ?Medication ?Instructions ?Recorded ?Confirmed No Known Home Meds 02/03/24 02/03/24 Allergies Allergy/AdvReac Type Severity Reaction Status Date / Time No Known Allergies (No Known Allergy Verified 02/25/25 23:40 Allergies*) Review of Systems Review of Systems: Yes all other systems are reviewed and are negative Constitutional: Constitutional: Denies fatigue and Denies fever(s) ENT: Denies dental pain, Denies otalgia, Reports neck pain and Denies sore throat Respiratory: Respiratory: Denies cough Musculoskeletal: Musculoskeletal: Reports neck pain Endocrine: Endocrine: Denies fatigue PMFSH Past Medical History Attestation statement: The following information was validated with the patient. Medical History (Updated 02/26/25 @ 03:09 by PRASANTH Kat) Constipation Severe headache Ovarian cyst Patient denies medical problems Family History Family History Father Thyroid disease Mother Thyroid disease Social History Social History Alcohol intake: never Patient Tobacco Use Status: Never used Tobacco Advance Directives: No Advance Directives Information Provided: No Do you have a plan to hurt others: No Plan Gender identity: Female Physical Exam ED Vital Signs: Vital Signs - 24 hr 02/25/25 23:39 Temperature 97.0 F Pulse Rate 72 Respiratory Rate 18 Blood Pressure 115/67 Pulse Oximetry 100 Oxygen Delivery Method Room Air BMI result Body Mass Index 24.0 Const Other: Alert Orientation/consciousness: patient oriented x3 HENMT Other: Oropharynx is erythematous, left tonsil more pronounced in the right, no exudate, no sublingual fluctuance, dentition intact, no trismus no drooling, no swelling inferior to the jawline Neck Other: Subtle anterior cervical lymphadenopathy Resp Effort & Inspection: normal respiratory effort Cardio Other: Normal peripheral perfusion Skin Other: Warm dry no rash Neuro General: patient oriented x3, gait normal, no focal motor deficits and CN's II- XI intact bilaterally Psych Other: Cooperative Medications Administered Discontinued Medications Generic Name Dose Route Start Last Admin Trade Name Hien PRN Reason Stop Dose Admin Dexamethasone Sodium Phosphate 10 mg 02/26/25 02:48 02/26/25 02:57 Dexamethasone Sod Phosphate 10 Mg/Ml Vial PO 02/26/25 02:49 10 mg ONCE ONE Administration Ibuprofen 600 mg 02/26/25 02:48 02/26/25 02:56 Ibuprofen 600 Mg Tablet PO 02/26/25 02:49 600 mg ONCE ONE Administration Medical Decision Making Medical Decision Making [facility] Narrative: 34-year-old female presents with multiple complaints. Patient states she has developed left-sided neck pain inferior to the jaw that radiates to the ear. De nies ear pain, dental pain or sore throat. Denies swelling inferior to the jawline, trismus or drooling. Denies fever. No chronic issues History: Per patient I have considered the following differential diagnoses: Strep pharyngitis, RPA, CARPET REPAIRER, sialoadenitis, dental infection, om, OE, serous otitis Plan: Patient here with lymphadenopathy, likely viral given I am not identifying a source of obvious infection. I added on a strep screen, it was negative. She has no obvious sign of dental infection. No exam findings consistent with a RPA or CARPET REPAIRER. We will give a dose of Decadron an anti- inflammatory she can follow up with primary care. Her symptoms are very nonspecific at this time. I have independently reviewed the following tests: Labs: Strep screen negative Differential Diagnosis Differential Diagnoses: The differential diagnosis associated with the presentation includes See MDM Admission/Observation Consideration of admission/observation: Escalation of care including admission/observation considered Not applicable Lab Data [facility] Lab Attestation statement: I reviewed the patient's lab results. Labs: Lab Results 02/26/25 Range/Units 02:24 S. pyogenes GrpA LUANN Negative (Negative) Discharge Plan Discharge Clinical Impression: Lymphadenopathy of left cervical region Patient Disposition: Home, Self-Care Instructions: Lymphadenopathy (ED) Additional Instructions: You have a reactive lymph node that has causing your discomfort. You do not have strep throat, there was no evidence of an ear infection on the left. At this point, there was no obvious dental infection. You could be reacting to underlying viral illness. You were given a dose of steroid and ibuprofen to help with the pain and inflammation. You can continue to use [id number] ibuprofen 600 mg taken every 6 hours with food. If you do develop additional symptoms such as a sore throat, left ear pain or dental pain, seek medical attention, it would be concerning that you are developing a bacterial infection. Otherwise follow up with your primary care provider. Prescriptions: No Action No Known Home Meds Print Language: Faroese
[2025-02-26 03:27] VITALS: BP 122/73; PULSE 68; RESP 20; TEMP 36.1; O2SAT 98
--- NOTE | 2025-02-26 03:29 | PC.NURSE ---
reviewed discharge instructions with pt. pt verbalized understanding.
[2025-02-26 03:30] VITALS: BP 122/73; PULSE 68; RESP 20; TEMP 36.1; O2SAT 98
== END 2025-02-26 03:31 | disposition home or self-care (01) ==
PROVIDERS: Physician Assistant Medical; Emergency Provider Emergency Medicine
DX: R59.1 Generalized enlarged lymph nodes (principal); R68.84 Jaw pain
CPT/HCPCS: 87651; 99283; 99284; J1100